=== PATIENT | female | born 1945 | race Caucasian/White ===

== ENCOUNTER 2021-02-01 01:59 | Day surgery (SDC) | payer MEDICARE, BC, SELFPAY ==
[2021-01-16 14:05] VITALS: BMI 23.8
[2021-02-01 08:19] VITALS: BP 129/58; PULSE 89; RESP 20; TEMP 36.1; O2SAT 98; BMI 23.1
--- NOTE | 2021-02-01 08:25 | WPDANESEPPF ---
Anes - Initial Pre Proc Eval Procedure: Operation Date: 02/01/21 09:15 Proposed Procedures p Esophagogastroduodenoscopy & Screening Colonoscopy - Aroldo Friedman MD Date/Time: 02/01/21 08:25 Surgeon: Aroldo Friedman MD Pre Op Diagnosis: hx of colon polyps, dysphagia Patient Data Age: 75 Gender: F Height: 1.57 m Weight: 57.2 kg Last Vital Signs Temp 36.1 C L 02/01/21 08:19 Pulse 89 02/01/21 08:19 Resp 20 02/01/21 08:19 BP 129/58 L 02/01/21 08:19 Pulse Ox 98 02/01/21 08:19 Allergies Allergy/AdvReac Type Severity Reaction Status Date / Time Sulfa (Sulfonamide Allergy Unknown unknown Verified 01/16/21 13:51 Antibiotics) 1 SULFA Allergy Unknown unknown Uncoded 01/16/21 13:51 Home Medications Medication Instructions Recorded Confirmed Type chlorpheniramine maleate 4 mg 4 mg PO Q4H PRN 03/09/20 01/16/21 History tablet levothyroxine 88 mcg capsule 88 mcg PO DAILY 03/09/20 01/16/21 History metformin 1,000 mg tablet 1,000 mg PO BID 03/09/20 01/16/21 History acetaminophen [Tylenol Arthritis] 650 mg PO Q24H 01/16/21 01/16/21 History Patient hx anesthesia problems: none Family hx anesthesia problems: none [facility] Past Medical History Medical History (Updated 02/01/21 @ 08:26 by Alexandro Hedrick MD) Chronic cough Diabetes Dysphagia History of colon polyps Hypercholesterolemia Hypothyroidism Osteoarthritis Social History Social History (Updated 01/12/21 @ 14:33 by Selma Rosales CMA) Smoking packs per day: 1 Smoking cigarettes per day: 20.0 Smoking status: Former smoker Tobacco type: cigarettes Alcohol intake: current Drinks per week: 1 Alcohol use details: Occasionally Substance use: never Substance use type: does not use Living arrangements: with family Spiritual care concerns: No Anes - Eval Final PreProcedure Day of Procedure 02/01/21 08:25 Patient weight: normal Heart: regular rate and rhythm Lungs: clear to auscultation and normal air movement Airway: Mallampati scale class II Neurological: alert and oriented Last oral intake: >/= 8 hours ASA classification: III Emergent: no Anesthetic plan: proceed Anesthesia type and monitoring: general GIVS Informed Consent: The patient's anesthetic plan and its attendant risks and benefits were discussed with the patient/family/POA. Questions were solicited and answers provided to the satisfaction of the patient/family/POA.
[2021-02-01 08:37] LABS: Glucose Point of Care 109 mg/dl (65-105)
[2021-02-01] MEDS: LACTATED RINGERS 1,000 ML 150 ML IV CONT (08:56)
--- NOTE | 2021-02-01 09:00 | WPDGICN ---
Assessment and Plan Assessment and plan (1) Dysphagia: Code(s): R13.10 - Dysphagia, unspecified Status: Acute Assessment and Plan: Patient has difficulty swallowing with more solid foods catching in the mid substernal portion the chest specifically in the throat. Plan is for EGD to assess for possible esophageal narrowing. Further recommendations will be given after endoscopy. (2) History of colon polyps: Code(s): Z86.010 - Personal history of colonic polyps Status: Acute Assessment and Plan: Patient has a prior history of colon polyps in 2014 by colonoscopy performed by Dr. Lee. Follow-up colonoscopy is advised at this time for surveillance purposes. GI Consult Note Consult date/time: 02/01/21 09:00 HPI: Bhumi Smith is a 75 year old female Presents for EGD. And colonoscopy. Patient complains of difficulty swallowing. She reports food catching in this back of her throat. This happens more often was solid foods compared to liquids. She states that is improved over recent weeks. She denies any weight loss or bleeding. She is occasionally woken at night with shortness of breath. Because of difficulty swallowing an EGD is advised to evaluate for esophageal narrowing. Patient also desires neoplasia screening colonoscopy. Patient reports a prior history of colon polyps in 2015. She reports that her current weight appetite bowel movement are normal. She denies abdominal pain. She has had no bleeding. Family history noncontributory. Review of Systems Review of Systems: All systems reviewed & are unremarkable except as noted in HPI and below PMFSH Past Medical History Medical History (Updated 02/01/21 @ 08:26 by Alexandro Hedrick MD) Chronic cough Diabetes Dysphagia History of colon polyps Hypercholesterolemia Hypothyroidism Osteoarthritis Social History Social History (Updated 01/12/21 @ 14:33 by Selma Rosales CMA) Smoking packs per day: 1 Smoking cigarettes per day: 20.0 Smoking status: Former smoker Tobacco type: cigarettes Alcohol intake: current Drinks per week: 1 Alcohol use details: Occasionally Substance use: never Substance use type: does not use Living arrangements: with family Spiritual care concerns: No Meds Home Medications and Allergies Home Medications Medication Instructions Recorded Confirmed Type chlorpheniramine maleate 4 mg 4 mg PO Q4H PRN 03/09/20 01/16/21 History tablet levothyroxine 88 mcg capsule 88 mcg PO DAILY 03/09/20 01/16/21 History metformin 1,000 mg tablet 1,000 mg PO BID 03/09/20 01/16/21 History acetaminophen [Tylenol Arthritis] 650 mg PO Q24H 01/16/21 01/16/21 History Allergies Allergy/AdvReac Type Severity Reaction Status Date / Time Sulfa (Sulfonamide Allergy Unknown unknown Verified 01/16/21 13:51 Antibiotics) 1 SULFA Allergy Unknown unknown Uncoded 01/16/21 13:51 Vital Signs Vital Signs - 24 hr 02/01/21 08:19 Temperature 96.9 F L Pulse Rate 89 Respiratory Rate 20 Blood Pressure 129/58 L Pulse Oximetry 98 Exam Narrative: Exam Narrative: Physical exam reveals patient to be alert. Vital signs stable. HEENT exam is unremarkable. Patient is anicteric. Lungs are clear to auscultation and percussion. Heart is without murmur or extra sounds. Abdominal exam bowel sounds are present soft nontender with no organomegaly. Digital external rectal exam is normal.
[2021-02-01 09:47] VITALS: BP 111/45; PULSE 81; RESP 15; O2SAT 99
[2021-02-01 09:57] VITALS: BP 104/53; PULSE 80; RESP 16; O2SAT 96
[2021-02-01 10:07] VITALS: BP 134/58; PULSE 78; RESP 18; O2SAT 100
== END 2021-02-01 10:24 | disposition home or self-care (01) ==
PROVIDERS: PCP Family Medicine; Visit Provider Internal Medicine Gastroenterology
PROC: 0DJ08ZZ Inspection of Upper Intestinal Tract, Via Natural or Artificial Opening Endoscopic (ICD-10-PCS; CPT 43235; principal; 2021-02-01 09:15)
DX: Z12.11 Encounter for screening for malignant neoplasm of colon (principal); K63.5 Polyp of colon; K64.8 Other hemorrhoids; K57.30 Diverticulosis of large intestine without perforation or abscess without bleeding; R13.10 Dysphagia, unspecified; E11.9 Type 2 diabetes mellitus without complications; E78.00 Pure hypercholesterolemia, unspecified; E03.9 Hypothyroidism, unspecified; M19.90 Unspecified osteoarthritis, unspecified site; Z79.84 Long term (current) use of oral hypoglycemic drugs; Z87.891 Personal history of nicotine dependence
CPT/HCPCS: 45385; 43450; 82948; 88305; J2001; J2704; J7120

== ENCOUNTER 2021-05-26 14:36 | Outpatient (CLI) | payer MEDICARE, BC, SELFPAY ==
[2021-05-26 14:56] LABS: Basophils Percent Auto 0.3 % (0.2-1.2); Eosinophils Absolute Auto 0.1 K/mm3 (0-0.3); Hematocrit 44.3 % (37.0-47.0); Immature Granulocyte Absolute 0.02 K/mm3 (0.00-0.031); Immature Granulocyte Percent A 0.3 % (0-0.5); Lymphocytes Absolute Auto 1.68 K/mm3 (0.9-3.2); Lymphocytes Percent Auto 25.2 % (18.3-44.2); Mean Corpuscular HGB Conc 31.6 g/dl (32-36); Mean Corpuscular Volume 101.1 fl (80-100); Mean Platelet Volume 9.3 fl (7.4-10.4); Monocytes Absolute Auto 0.6 K/mm3 (0.1-0.6); Monocytes Percent Auto 9.4 % (2.6-8.5); Neutrophils Absolute Auto 4.3 K/mm3 (1.3-6.7); Neutrophils Percent Auto 63.8 % (45.5-73.1); Platelet Count Result 272 k/mm3 (150-375); Red Blood Count 4.38 M/mm3 (4.2-5.4); Red Cell Distribution Width 13.2 % (11.5-14.5); White Blood Count 6.7 K/mm3 (4.5-10.0)
[2021-05-26 15:09] LABS: Alanine Aminotransferase 21 U/L (4-35); Albumin Level 4.9 g/dL (3.5-5.1); Alkaline Phosphatase 80 U/L (38-126); Anion Gap 17 mmol/L (8-16); Aspartate Amino Transferase 27 U/L (14-36); Bilirubin,Total 0.3 mg/dL (0.2-1.3); Blood Urea Nitrogen 17 mg/dL (7-17); Calcium 9.8 mg/dL (8.4-10.2); Carbon Dioxide 21 mmol/L (22-30); Chloride 103 mmol/L (98-107); Cholesterol 192 mg/dL (0-200); Estimated Glomerular Filt Rate > 60; Glucose 116 mg/dL (65-110); HDL Direct 103 mg/dL; Potassium 4.5 mmol/L (3.4-5.0); Sodium 141 mmol/L (137-145); Triglycerides 146 mg/dL (<150)
[2021-05-26 15:21] LABS: LDL Cholesterol Direct 71 mg/dL
[2021-05-26 15:31] LABS: Free T4 Free Thyroxine 1.98 ng/mL (0.78-2.19)
[2021-05-26 15:42] LABS: Thyroid Stimulating Hormone 0.044 uIU/mL (0.465-4.680); Total Triiodothyronine (T3) 1.58 NG/ML (0.97-1.69)
== END 2021-05-26 14:37 | disposition home or self-care (01) ==
LOC: ANHLAB 14:40
PROVIDERS: PCP Family Medicine; Visit Provider Family Medicine
DX: I10 Essential (primary) hypertension (principal); E03.9 Hypothyroidism, unspecified; E78.2 Mixed hyperlipidemia; E11.9 Type 2 diabetes mellitus without complications
CPT/HCPCS: 36415; 80053; 80061; 83036; 84439; 84443; 84480; 85025

== ENCOUNTER 2021-10-28 09:04 | Outpatient (CLI) | payer MEDICARE, BC, SELFPAY ==
[2021-10-28 10:08] LABS: Basophils Percent Auto 0.4 % (0.2-1.2); Eosinophils Absolute Auto 0.1 K/mm3 (0-0.3); Eosinophils Percent Auto 1.2 % (0-4.4); Hematocrit 38.9 % (37.0-47.0); Hemoglobin 12.7 g/dL (12.0-15.0); Immature Granulocyte Absolute 0.01 K/mm3 (0.00-0.031); Immature Granulocyte Percent A 0.2 % (0-0.5); Lymphocytes Absolute Auto 1.41 K/mm3 (0.9-3.2); Lymphocytes Percent Auto 27.6 % (18.3-44.2); Mean Corpuscular HGB Conc 32.6 g/dl (32-36); Mean Corpuscular Hemoglobin 32.2 pg (26-34); Mean Corpuscular Volume 98.7 fl (80-100); Mean Platelet Volume 9.7 fl (7.4-10.4); Monocytes Absolute Auto 0.6 K/mm3 (0.1-0.6); Neutrophils Percent Auto 58.6 % (45.5-73.1); Platelet Count Result 261 k/mm3 (150-375); Red Blood Count 3.94 M/mm3 (4.2-5.4); Red Cell Distribution Width 13.3 % (11.5-14.5); White Blood Count 5.1 K/mm3 (4.5-10.0)
[2021-10-28 10:22] LABS: Alanine Aminotransferase 19 U/L (4-35); Albumin Level 4.6 g/dL (3.5-5.1); Alkaline Phosphatase 63 U/L (38-126); Anion Gap 8 mmol/L (8-16); Aspartate Amino Transferase 29 U/L (14-36); Bilirubin,Total 0.4 mg/dL (0.2-1.3); Blood Urea Nitrogen 12 mg/dL (7-17); Calcium 8.7 mg/dL (8.4-10.2); Carbon Dioxide 22 mmol/L (22-30); Chloride 103 mmol/L (98-107); Cholesterol 188 mg/dL (0-200); Estimated Glomerular Filt Rate > 60; Glucose 111 mg/dL (65-110); HDL Direct 81 mg/dL; Potassium 4.3 mmol/L (3.4-5.0); Sodium 133 mmol/L (137-145); Triglycerides 77 mg/dL (<150)
[2021-10-28 10:34] LABS: LDL Cholesterol Direct 60 mg/dL
[2021-10-28 10:52] LABS: Free T4 Free Thyroxine 1.18 ng/mL (0.78-2.19)
[2021-10-28 12:19] LABS: Creatinine Urine 60.9 mg/dL
[2021-10-28 12:30] LABS: MALB Creatinine Ratio < 9.9 mg/g (0-30); Microalbumin Urine Random < 6.0 mg/L (0-16.7)
[2021-10-28 12:33] LABS: Hemoglobin A1C 5.9 % (<5.7)
== END 2021-10-28 09:05 | disposition home or self-care (01) ==
PROVIDERS: PCP Family Medicine; Visit Provider Family Medicine
DX: E11.9 Type 2 diabetes mellitus without complications (principal); I10 Essential (primary) hypertension; E78.2 Mixed hyperlipidemia; E03.9 Hypothyroidism, unspecified
CPT/HCPCS: 36415; 80053; 80061; 82043; 83036; 84439; 85025

== ENCOUNTER 2021-11-10 14:26 | Inpatient (IN) | payer MEDICARE, BC, SELFPAY ==
[2021-11-10] VITALS (12 sets, daily range): BP systolic 133–153; BP diastolic 55–74; PULSE 71–88; RESP 18–30; TEMP 36.2–38.4; O2SAT 91–98; BMI 23.0; BMI 24.3
--- NOTE | ~2021-11-10 | CT_ITS ---
EXAMINATION: CT brain wo con DATE: 11/10/2021 15:45 INDICATION: Generalized weakness and headache TECHNIQUE: Computed tomography (CT) of the head was performed without intravenous contrast. Sagittal and coronal reconstructions were performed. The mA was adjusted according to patient size. Iterative reconstruction technique was employed. The dose-length product was 605.33 mGy-cm. COMPARISON: None FINDINGS: Small old lacunar infarct at the left lentiform nucleus. No acute intracranial hemorrhage, acute infa rction or abnormal extra axial fluid collection. There is mild scattered white matter hypoattenuation consistent with chronic small vessel ischemic disease. Symmetric prominence of the sulci consistent with mild age-appropriate diffuse cerebral volume loss. Ventricles are normal and symmetric. No mass/ mass effect. Changes of bilateral intraocular lens replacement. The orbits, paranasal sinuses and mas toid air cells are normal. IMPRESSION: 1. No acute intracranial process. 2. Small old lacunar infarct at the left lentiform nucleus. 3. Age-related changes including mild diffuse volume loss and mild scattered white matter hypoattenua tion consistent with chronic small vessel ischemic disease. Reviewed, dictated and finalized at location A. IMPRESSION: 1. No acute intracranial process. 2. Small old lacunar infarct at the left lentiform nucleus. 3. Age-related changes including mild diffuse volume loss and mild scattered wh ite matter hypoattenuation consistent with chronic small vessel ischemic diseas e.
--- NOTE | ~2021-11-10 | XR_ITS ---
EXAMINATION: XR chest 1V portable INDICATION: Fever TECHNIQUE: Portable AP chest at 1939 hours COMPARISON: None available FINDINGS: There is mild atelectasis of the lung bases. No focal airspace opacities are identified. Th ere is no pleural effusion or pneumothorax. The cardiomediastinal silhouette is normal. IMPRESSION: 1. Mild atelectasis of the lung bases. Reviewed, dictated and finalized at location F.
--- NOTE | ~2021-11-10 | CT_ITS ---
EXAMINATION: CT abdomen pelvis w con INDICATION: Abdominal pain and fever TECHNIQUE: Computed tomographic images of the abdomen and pelvis were obtained after the administrati on of 100 cc of Omnipaque 350 intravenous contrast. The dose-length product (DLP) was 480.70 mGy-cm. Automated exposure control and iterative reconstruction technique were employed. COMPARISON: None available FINDINGS: Minimal dependent atelectasis is present in the lung bases. The heart size is normal. The l iver, spleen, pancreas, and adrenal glands are normal. A stone is present in the nondistended gallbla dder. There are diverticula of the third portion of the duodenum. The kidneys are unremarkable. There is calcified atherosclerosis of the aorta and many of the other arteries. No pathologically enlarged abdominal or pelvic lymph nodes are identified. Colonic diverticulosis is present without evidence o f diverticulitis. There is no free intraperitoneal gas or evidence of bowel obstruction. There is a s mall amount of intraluminal gas in the nondependent portion of the urinary bladder. There is mild lum bar spondylosis. A neurostimulator device is implanted in the gluteal subcutaneous tissues on the rig ht. Its lead enters the left pelvis. IMPRESSION: 1. No CT correlate for the patient's symptoms. 2. Tiny foci of intraluminal gas in the urinary bladder which could reflect recent catheterization. I n the absence of such history, consider urinary tract infection. 3. Cholelithiasis without evidence of cholecystitis. 4. Diverticulosis without evidence of diverticulitis. Reviewed, dictated and finalized at location F. IMPRESSION: 1. No CT correlate for the patient's symptoms. 2. Tiny foci of intraluminal gas in the urinary bladder which could reflect rec ent catheterization. In the absence of such history, consider urinary tract inf ection. 3. Cholelithiasis without evidence of cholecystitis. 4. Diverticulosis without evidence of diverticulitis.
--- NOTE | 2021-11-10 14:34 | ED.GENADULT ---
HPI - General Adult General Chief complaint: Weakness Stated complaint: weakness x 4-5 hours Time Seen by Provider: 11/10/21 14:28 Source: patient, EMS and RN notes reviewed Mode of arrival: ambulatory Limitations: no limitations History of Present Illness HPI narrative: 76-year-old female presenting to the emergency department for evaluation of increased generalized weakness. Patient is normally relatively active and walks approximately 1 mile a day. Family states over the last 5 hours she has had a worsening generalized weakness and was unable to walk today. Upon arrival to the emerge department patient does appear very tired. Patient does complain of some lower abdominal pain. Patient was febrile upon arrival. Patient is currently on Macrobid since the . Related Data Home Medications Medication Instructions Recorded Confirmed acetaminophen [Tylenol Arthritis] 650 mg PO Q24H 01/16/21 10/26/21 Allergies Allergy/AdvReac Type Severity Reaction Status Date / Time Sulfa (Sulfonamide Allergy Mild unknown Verified 11/10/21 14:34 Antibiotics) 1 SULFA Allergy Mild unknown Uncoded 11/10/21 14:34 Review of Systems Review of Systems: CONSTITUTIONAL: Increased generalized weakness EYES: Denies visual changes, redness, or discharge. ENT: Denies rhinorrhea, congestion, sore throat, or otalgia. CARDIOVASCULAR: Denies chest pain, palpitations, or edema. RESPIRATORY: Denies cough or dyspnea. GASTROINTESTINAL: See HPI GENITOURINARY: Denies dysuria or hematuria. SKIN: Denies rash or itching. MUSCULOSKELETAL: Denies back pain, joint pain, or myalgia. NEUROLOGIC: See HPI All systems reviewed & are unremarkable except as noted in HPI and below PMFSH Past Medical History Medical History Chronic cough Diabetes Dysphagia History of colon polyps Hypercholesterolemia Hypothyroidism Osteoarthritis Presence of neurostimulator TIA (transient ischemic attack) Urinary bladder incontinence Surgical History Surgical History H/O colonoscopy with polypectomy 02/08- repeat in 2025 History of esophagogastroduodenoscopy (EGD) 01/2021 Family History Family History Mother Breast cancer Heart disease Diabetes mellitus Social History Social History (Updated 04/07/22 @ 12:55 by Jeanie Bocanegra Social History: Smoking packs per day: 1 Smoking cigarettes per day: 20.0 Smoking status: Former smoker Tobacco type: cigarettes Second hand tobacco smoke exposure: No Smoking end date: 07/22/07 Alcohol intake: current Alcohol use details: Occasionally Substance use: never Substance use type: does not use Gender identity (if verbalized by the patient): Female Sexual Orientation (if Verbalized by the Patient): Straight or Heterosexual Spiritual care concerns: No Exam Narrative: APPEARANCE: Ill-appearing. HEAD: normocephalic, atraumatic. EYES: PERRLA/EOMI, conjunctivae clear. NOSE: Normal no drainage EARS:TMS clear with good light reflex. THROAT: Pharynx clear, no exudate. NECK: Supple. No adenopathy, no masses. RESPIRATORY: Airway patent, respirations nonlabored. Clear to auscultation bilaterally, no rales, rhonchi, wheezing. CARDIOVASCULAR: Regular rate and rhythm without murmurs rubs or gallops. ABDOMINAL: Soft, nontender, nondistended, normal bowel sounds MUSCULOSKELETAL: Moves all extremities. Strength/ROM intact, No edema, No calf tenderness. NEURO: Alert. Cranial nerves II through XII intact. Grossly intact. No focal deficit. No ataxia. No discoordination. SKIN: Warm, dry. Normal Color PSYCHIATRIC: Normal affect/mood. Course Course Emergency Course: No evidence of urinary tract infection. CT head and CT abdomen pelvis were negative. Patient did feel improved with antipyretics but was still very unstable on her gait. Delon
[2021-11-10 14:57] LABS: Basophils Percent Auto 0.1 % (0.2-1.2); Eosinophils Absolute Auto 0.1 K/mm3 (0-0.3); Eosinophils Percent Auto 1.2 % (0-4.4); Hemoglobin 12.7 g/dL (12.0-15.0); Immature Granulocyte Absolute 0.07 K/mm3 (0.00-0.031); Immature Granulocyte Percent A 0.8 % (0-0.5); Lymphocytes Absolute Auto 0.43 K/mm3 (0.9-3.2); Lymphocytes Percent Auto 4.8 % (18.3-44.2); Mean Corpuscular HGB Conc 31.8 g/dl (32-36); Mean Corpuscular Hemoglobin 31.7 pg (26-34); Mean Corpuscular Volume 99.8 fl (80-100); Mean Platelet Volume 9.4 fl (7.4-10.4); Monocytes Absolute Auto 0.5 K/mm3 (0.1-0.6); Monocytes Percent Auto 5.6 % (2.6-8.5); Neutrophils Absolute Auto 7.8 K/mm3 (1.3-6.7); Neutrophils Percent Auto 87.5 % (45.5-73.1); Platelet Count Result 241 k/mm3 (150-375); Red Blood Count 4.01 M/mm3 (4.2-5.4); Red Cell Distribution Width 13.6 % (11.5-14.5); White Blood Count 8.9 K/mm3 (4.5-10.0)
[2021-11-10 15:06] LABS: Lactic Acid Reflex 1.4 mmol/L (0.7-2.1)
[2021-11-10 15:08] LABS: Alanine Aminotransferase 25 U/L (4-35); Albumin Level 4.5 g/dL (3.5-5.1); Alkaline Phosphatase 65 U/L (38-126); Anion Gap 9 mmol/L (8-16); Aspartate Amino Transferase 39 U/L (14-36); Bilirubin,Total 0.3 mg/dL (0.2-1.3); Blood Urea Nitrogen 9 mg/dL (7-17); Calcium 8.6 mg/dL (8.4-10.2); Carbon Dioxide 23 mmol/L (22-30); Chloride 99 mmol/L (98-107); Estimated CRCL calculation 47 ml/min; Estimated Glomerular Filt Rate > 60; Glucose 160 mg/dL (65-110); Sodium 131 mmol/L (137-145)
[2021-11-10 15:31] LABS: Influenza A QL RT-PCR Negative (Negative); Influenza B QL RT-PCR Negative (Negative); SARS-CoV-2 RNA PCR Negative
[2021-11-10 16:18] LABS: Add Urine Microscopic? YES; Appearance Urine Clear (Clear); Bilirubin Urine Negative (Negative); Blood Urine 1+ (Negative); Color Urine Yellow (Yellow); Glucose Urine UA Negative (Negative); Ketones Urine Trace mg/dL (Negative); Leukocyte Esterase Ur Negative LEU/UL (Negative); Mucus Urine Rare /lpf; Nitrate Urine Negative (Negative); Protein Urine Negative (Negative); RBC Urine 0-2 /hpf (0-2); Specific Grav Ur 1.024 (1.001-1.035); Urobilinogen Urine Negative mg/dL (<2.0); WBC Urine 0-3 /hpf
--- NOTE | 2021-11-10 19:39 | PM.IMHP ---
H&P: HPI History of Present Illness Date/Time: 11/10/21 19:39 Chief Complaint: 76 years old female with past medical history of diabetes hypothyroidism presented to the hospital with difficulty with walking associated with generalized weakness normally patient is able to walk 1 mill a day patient also complain patient also has fever associated with intermittent confusion nor neck pain patient was recently treated for UTI with Macrobid CT scan of the abdomen concern for probable cystitis CT scan of the head negative for acute finding Review of Systems Review of Systems: All systems reviewed & are unremarkable except as noted in HPI and below PMFSH Past Medical History Medical History Chronic cough Diabetes Dysphagia History of colon polyps Hypercholesterolemia Hypothyroidism Osteoarthritis Presence of neurostimulator TIA (transient ischemic attack) Urinary bladder incontinence Surgical History Surgical History H/O colonoscopy with polypectomy 02/08- repeat in 2025 History of esophagogastroduodenoscopy (EGD) 01/2021 Family History Family History Mother Breast cancer Heart disease Diabetes mellitus Social History Social History Social History: Smoking packs per day: 1 Smoking cigarettes per day: 20.0 Smoking status: Former smoker Tobacco type: cigarettes Second hand tobacco smoke exposure: No Smoking end date: 07/22/07 Alcohol intake: current Alcohol use details: Occasionally Substance use: never Substance use type: does not use Gender identity (if verbalized by the patient): Female Sexual Orientation (if Verbalized by the Patient): Straight or Heterosexual Spiritual care concerns: No Meds Home Medications and Allergies Home Medications Medication Instructions Recorded Confirmed Type acetaminophen [Tylenol Arthritis] 650 mg PO Q24H 01/16/21 10/26/21 History levothyroxine 50 mcg tablet See Rx Instructions .ROUTE 10/09/21 10/26/21 Rx .COMPLEX #100 tablet atorvastatin 10 mg tablet 10 mg PO DAILY #90 tablet 10/26/21 10/26/21 Rx escitalopram oxalate 5 mg tablet 5 mg PO DAILY #30 tablet 10/26/21 10/26/21 Rx metformin 1,000 mg tablet 1,000 mg PO BID #180 tablet 10/26/21 10/26/21 Rx Allergies Allergy/AdvReac Type Severity Reaction Status Date / Time Sulfa (Sulfonamide Allergy Mild unknown Verified 11/10/21 14:34 Antibiotics) 1 SULFA Allergy Mild unknown Uncoded 11/10/21 14:34 Vital Signs Vital Signs - 24 hr 11/10/21 14:22 11/10/21 14:32 11/10/21 14:33 Temperature 101.2 F H Pulse Rate 86 87 88 Respiratory Rate 30 H 30 H Blood Pressure 153/70 H 153/70 H Pulse Oximetry 96 96 11/10/21 14:36 11/10/21 14:57 11/10/21 15:01 Temperature Pulse Rate 86 87 Respiratory Rate 28 H 29 H Blood Pressure 134/62 134/63 Pulse Oximetry 96 95 94 11/10/21 15:12 11/10/21 15:55 11/10/21 16:02 Temperature 99.3 F 99.3 F Pulse Rate 84 79 Respiratory Rate 18 21 H Blood Pressure 146/55 H 151/61 H Pulse Oximetry 96 93 11/10/21 18:29 Temperature Pulse Rate 71 Respiratory Rate 18 Blood Pressure 133/74 Pulse Oximetry 91 Exam Const: General: no acute distress HENMT: Mouth: Yes dry mucous membranes Eyes: Sclera: sclerae normal Neck: Neck: no JVD Resp: Auscultation: clear to auscultation bilaterally Cardio: Rate: regular rate Rhythm: regular rhythm GI: Inspection: non-distended GI Palp: Yes Soft to palpation, No Tenderness to palpation present (GI) and No Guarding due to palpation present (GI) Skin: General skin exam: normal color Neuro: General: gait normal and deep tendon reflexes 2+ bilaterally Cognition (Neuro): normal cognition and abnormal cognition Speech: normal speech Ivette
[2021-11-10 21:32] LABS: Magnesium 1.7 mg/dL (1.6-2.3); Uric Acid 3.7 mg/dL (2.5-7.5)
[2021-11-10 21:35] LABS: CRP 4.2 mg/dL (<1.0)
[2021-11-10 21:48] LABS: Creatine Kinase 657 U/L (30-135)
[2021-11-10 21:55] LABS: Vitamin D 25 Hydroxy 24.6 ng/mL
[2021-11-10 21:57] LABS: Procalcitonin 0.6 ng/mL
[2021-11-10] MEDS: ACETAMINOPHEN 325 MG TABLET 650 MG PO (22:01)
[2021-11-10] MEDS: SODIUM CHLORIDE 0.9% IV 1,000 ML 100 ML IV CONT (22:04)
[2021-11-10] MEDS: DOXYCYCLINE 100 MG/NS 100 ML 100 MG/100 ML BAG IVPB (22:04)
--- NOTE | 2021-11-10 22:22 | ADMGEN ---
This patient, Bhumi Smith, was admitted to [facility] Surg Room 321-02. Patient/family oriented to hospital policies and general routines including ID bracelet, bed and alarms, visiting hours, pain management, procedures, bathroom and other care routines, personal items, smoking policy, room service/diet, and visiting hours. Information on how to activate the Rapid Response Team has been discussed. Patient/Family are encouraged to report perceived risks to care and to ask questions if they do not understand what they are told or what they should do.
[2021-11-10 22:39] LABS: Folic Acid 11.7 ng/mL (2.76->20)
[2021-11-10] MEDS: cefTRIAXone 2 GM in SODIUM CHLORIDE 0.9% IV 100 ML 200 ML IVPB (23:47)
[2021-11-11] VITALS (10 sets, daily range): BP systolic 129–140; BP diastolic 46–61; PULSE 86–96; RESP 18–19; TEMP 36.9–38.5; O2SAT 94–96
[2021-11-11] MEDS: LEVOTHYROXINE SODIUM 50 MCG TABLET BY MOUTH (06:23)
[2021-11-11] MEDS: ACETAMINOPHEN 325 MG TABLET 650 MG PO ×3 (06:24→21:00)
[2021-11-11 06:46] LABS: Basophils Percent Auto 0.2 % (0.2-1.2); Eosinophils Absolute Auto 0.2 K/mm3 (0-0.3); Eosinophils Percent Auto 2.6 % (0-4.4); Hematocrit 39.3 % (37.0-47.0); Hemoglobin 12.7 g/dL (12.0-15.0); Immature Granulocyte Absolute 0.05 K/mm3 (0.00-0.031); Immature Granulocyte Percent A 0.5 % (0-0.5); Lymphocytes Absolute Auto 0.71 K/mm3 (0.9-3.2); Lymphocytes Percent Auto 7.8 % (18.3-44.2); Mean Corpuscular HGB Conc 32.3 g/dl (32-36); Mean Corpuscular Hemoglobin 31.8 pg (26-34); Mean Corpuscular Volume 98.3 fl (80-100); Mean Platelet Volume 10.4 fl (7.4-10.4); Monocytes Absolute Auto 0.9 K/mm3 (0.1-0.6); Monocytes Percent Auto 9.8 % (2.6-8.5); Neutrophils Absolute Auto 7.2 K/mm3 (1.3-6.7); Neutrophils Percent Auto 79.1 % (45.5-73.1); Platelet Count Result 230 k/mm3 (150-375); Red Cell Distribution Width 13.7 % (11.5-14.5); White Blood Count 9.1 K/mm3 (4.5-10.0)
[2021-11-11 07:25] LABS: Glucose Point of Care 169 mg/dl (65-105)
[2021-11-11] MEDS: DOXYCYCLINE 100 MG/NS 100 ML 100 MG/100 ML BAG IVPB (08:04)
[2021-11-11] MEDS: ESCITALOPRAM OXALATE 5 MG TABLET PO (08:04)
[2021-11-11] MEDS: ENOXAPARIN 40 MG/0.4 ML SYRINGE SUB-Q (08:45)
[2021-11-11 11:11] LABS: Amphetamine Screen Urine Negative (Negative); Barbiturate Screen Urine Negative (Negative); Benzodiazepines Screen Urine Negative (Negative); Cannabinoid Screen Urine Negative (Negative); Cocaine Screen Urine Negative (Negative); Methadone Screen Urine Negative (Negative); Opiate Screen Urine Negative (Negative); Phencyclidine Screen Urine Negative (Negative)
--- NOTE | 2021-11-11 11:26 | PM.IMPN ---
Progress Note: A&P Assessment and Plan (1) Fever: Qualifiers: Fever type: unspecified Qualified Code(s): R50.9 - Fever, unspecified Code(s): R50.9 - Fever, unspecified Status: Acute Assessment and Plan: Probable viral illness CT scan shows concern for cystitis Follow-up blood culture Continue iv rocephin Dc doxocycline (2) Hypothyroidism: Code(s): E03.9 - Hypothyroidism, unspecified Status: Acute Assessment and Plan: Pt is on levothyroxine (3) Diabetes: Code(s): E11.9 - Type 2 diabetes mellitus without complications Status: Acute Assessment and Plan: Continue- insulin sliding scale (4) Difficulty walking: Code(s): R26.2 - Difficulty in walking, not elsewhere classified Status: Acute Assessment and Plan: Neurology consult CT scan of the head was negative PT OT evaluation Pt will benefit from MRI of the brain for weakness Subjective Date/time seen: 11/11/21 11:26 Interval history: 76 years old female with past medical history of diabetes hypothyroidism presented to the hospital with difficulty with walking associated with generalized weakness normally patient is able to walk 1 mill a day patient also complain patient also has fever associated with intermittent confusion nor neck pain patient was recently treated for UTI Pt states she has been feeling very tired, usually does not come to hospital. Pt has history of type 2 DM. States she has severe headache and arm pains and feels weak to walk. ? viral infection ? UTI Review of Systems Review of Systems: All systems reviewed & are unremarkable except as noted in HPI and below Exam Const: General: no acute distress Resp: Auscultation: clear to auscultation bilaterally Cardio: Rate: regular rate Rhythm: regular rhythm GI: Inspection: non-distended Skin: General skin exam: normal color Neuro: General: gait normal and deep tendon reflexes 2+ bilaterally Cognition (Neuro): normal cognition and abnormal cognition Speech: normal speech Motor exam (neuro): 5/5 motor strength present throughout and Normal motor muscle tone present throughout Sensory Exam: normal sensation Extrem: General: normal to inspection Right upper extremity: normal to inspection and no joint enlargement Left upper extremity: normal to inspection and no joint enlargement Right lower extremity: normal to inspection and no joint enlargement Left lower extremity: normal to inspection and no joint enlargement Psych: Mental Status: mental status grossly normal Objective Data Vital Signs Vital Signs: Vital Signs - 24 hr 11/10/21 14:22 11/10/21 14:32 11/10/21 14:33 Temperature 38.4 C H Pulse Rate 86 87 88 Respiratory Rate 30 H 30 H Blood Pressure 153/70 H 153/70 H Pulse Oximetry 96 96 11/10/21 14:36 11/10/21 14:57 11/10/21 15:01 Temperature Pulse Rate 86 87 Respiratory Rate 28 H 29 H Blood Pressure 134/62 134/63 Pulse Oximetry 96 95 94 11/10/21 15:12 11/10/21 15:55 11/10/21 16:02 Temperature 37.4 C 37.4 C Pulse Rate 84 79 Respiratory Rate 18 21 H Blood Pressure 146/55 H 151/61 H Pulse Oximetry 96 93 11/10/21 18:29 11/10/21 20:00 11/10/21 21:07 Temperature 36.2 C L 36.2 C L Pulse Rate 71 77 77 Respiratory Rate 18 18 18 Blood Pressure 133/74 135/55 L 135/55 L Pulse Oximetry 91 98 98 11/11/21 00:00 11/11/21 04:00 11/11/21 06:00 Temperature 38.1 C H Pulse Rate 88 88 91 Respiratory Rate 18 Blood Pressure 130/61 Pulse Oximetry 95 11/11/21 06:24 11/11/21 08:00 Temperature 38.1 C H Pulse Rate 93 Respiratory Rate Blood Pressure Pulse Oximetry Intake/Output Intake/Output: Intake & Output 11/08/21 11/09/21 11/10/21 11/11/21 23:59 23:59 23:59 23:59 Intake Total 200 456 Balance 200 456 Meds/Results Medications: Active Medications Generic Name Dose Route Start Last Admin Trade Name Freq PRN Reason Stop
[2021-11-11 11:31] LABS: Glucose Point of Care 118 mg/dl (65-105)
--- NOTE | 2021-11-11 12:23 | WPDNEURCNPN ---
Consult date: 11/11/21 HPI: Bhumi Smith is a 76 year old female 76 years old right-handed female has been admitted to [facility] through the emergency room where she presented with the complaints of weakness of several hours duration, patient is reportedly relatively active approximately 1mi walking per day, but over the last 5 hours she became weak generally and was unable to walk on initial arrival in the emergency room she appeared very tired and complained of some abdominal pain additionally she was febrile she has been taking only Tylenol 650 mg Q 24 hours. Reportedly she is allergic to sulfa, she has ongoing history of 1. Diabetes mellitus 2. Hypercholesterolemia 3. Hypothyroidism 4. Osteoarthritis 5. TIA 6. Bladder dysfunction and 7. Neuro stimulator in situ. She is a former smoker by history stopped smoking in July of 2007 and current alcohol occasionally intake initial exam otherwise was nonfocal and CT head and abdomen and pelvis were negative also routine lab was normal except sodium 131 Review of Systems Review of Systems: All systems reviewed & are unremarkable except as noted in HPI and below PMFSH Past Medical History Medical History Chronic cough Diabetes Dysphagia History of colon polyps Hypercholesterolemia Hypothyroidism Osteoarthritis Presence of neurostimulator TIA (transient ischemic attack) Urinary bladder incontinence Surgical History Surgical History H/O colonoscopy with polypectomy 02/08- repeat in 2025 History of esophagogastroduodenoscopy (EGD) 01/2021 Family History Family History Mother Breast cancer Heart disease Diabetes mellitus Social History Social History Social History: Smoking packs per day: 2 Smoking cigarettes per day: 40.0 Years smoked: 40 Smoking pack-years: 80.00 Smoking status: Former smoker Tobacco type: cigarettes Second hand tobacco smoke exposure: No Smoking end date: 07/22/07 Alcohol intake: former Alcohol use details: Occasionally Substance use: never Substance use type: marijuana Gender identity (if verbalized by the patient): Female Sexual Orientation (if Verbalized by the Patient): Straight or Heterosexual Spiritual care concerns: No Meds Home Medications and Allergies Home Medications Medication Instructions Recorded Confirmed Type acetaminophen [Tylenol Arthritis] 650 mg PO Q24H 01/16/21 11/11/21 History levothyroxine 50 mcg tablet See Rx Instructions .ROUTE 10/09/21 11/11/21 Rx .COMPLEX #100 tablet atorvastatin 10 mg tablet 10 mg PO DAILY #90 tablet 10/26/21 11/11/21 Rx escitalopram oxalate 5 mg tablet 5 mg PO DAILY #30 tablet 10/26/21 11/11/21 Rx metformin 1,000 mg tablet 1,000 mg PO BID #180 tablet 10/26/21 11/11/21 Rx Allergies Allergy/AdvReac Type Severity Reaction Status Date / Time Sulfa (Sulfonamide Allergy Mild unknown Verified 11/10/21 14:34 Antibiotics) 1 SULFA Allergy Mild unknown Uncoded 11/10/21 14:34 Vital Signs Vital Signs - 24 hr 11/10/21 14:22 11/10/21 14:32 11/10/21 14:33 Temperature 38.4 C H Pulse Rate 86 87 88 Respiratory Rate 30 H 30 H Blood Pressure 153/70 H 153/70 H Pulse Oximetry 96 96 11/10/21 14:36 11/10/21 14:57 11/10/21 15:01 Temperature Pulse Rate 86 87 Respiratory Rate 28 H 29 H Blood Pressure 134/62 134/63 Pulse Oximetry 96 95 94 11/10/21 15:12 11/10/21 15:55 11/10/21 16:02 Temperature 37.4 C 37.4 C Pulse Rate 84 79 Respiratory Rate 18 21 H Blood Pressure 146/55 H 151/61 H Pulse Oximetry 96 93 11/10/21 18:29 11/10/21 20:00 11/10/21 21:07 Temperature 36.2 C L 36.2 C L Pulse Rate 71 77 77 Respiratory Rate 18 18 18 Blood Pressure 133/74 135/55 L 135/55 L Pulse Oximetry 91 98 98 11/11/21 00:00 11/11
[2021-11-11 12:55] LABS: Anion Gap 11 mmol/L (8-16); Blood Urea Nitrogen 10 mg/dL (7-17); Carbon Dioxide 19 mmol/L (22-30); Chloride 103 mmol/L (98-107); Estimated CRCL calculation 44 ml/min; Estimated Glomerular Filt Rate > 60; Potassium 4.2 mmol/L (3.4-5.0); Sodium 133 mmol/L (137-145)
[2021-11-11 12:56] LABS: Alanine Aminotransferase 25 U/L (4-35); Albumin Level 4.3 g/dL (3.5-5.1); Alkaline Phosphatase 56 U/L (38-126); Aspartate Amino Transferase 49 U/L (14-36); Bilirubin,Total 0.5 mg/dL (0.2-1.3); Calcium 8.3 mg/dL (8.4-10.2); Glucose 156 mg/dL (65-110); Total Protein 7.4 g/dL (6.3-8.2)
[2021-11-11] MEDS: SODIUM CHLORIDE 0.9% IV 1,000 ML 100 ML IV CONT (13:33)
[2021-11-11 16:13] LABS: Glucose Point of Care 181 mg/dl (65-105)
[2021-11-11] MEDS: cefTRIAXone 2 GM in SODIUM CHLORIDE 0.9% IV 100 ML 200 ML IVPB (21:00)
[2021-11-12] MEDS: SODIUM CHLORIDE 0.9% IV 1,000 ML 100 ML IV CONT (00:59)
[2021-11-12] MEDS: ACETAMINOPHEN 325 MG TABLET 650 MG PO ×2 (01:00→06:27)
[2021-11-12 06:00] VITALS: BP 138/56; PULSE 82; RESP 18; TEMP 36.9; O2SAT 93
[2021-11-12] MEDS: LEVOTHYROXINE SODIUM 50 MCG TABLET BY MOUTH (06:27)
[2021-11-12 07:19] LABS: Basophils Percent Auto 0.1 % (0.2-1.2); Eosinophils Absolute Auto 0.3 K/mm3 (0-0.3); Eosinophils Percent Auto 3.4 % (0-4.4); Hematocrit 33.7 % (37.0-47.0); Hemoglobin 10.7 g/dL (12.0-15.0); Immature Granulocyte Absolute 0.03 K/mm3 (0.00-0.031); Immature Granulocyte Percent A 0.4 % (0-0.5); Lymphocytes Absolute Auto 0.92 K/mm3 (0.9-3.2); Lymphocytes Percent Auto 11.5 % (18.3-44.2); Mean Corpuscular HGB Conc 31.8 g/dl (32-36); Mean Corpuscular Hemoglobin 31.4 pg (26-34); Mean Corpuscular Volume 98.8 fl (80-100); Mean Platelet Volume 9.8 fl (7.4-10.4); Monocytes Absolute Auto 0.9 K/mm3 (0.1-0.6); Monocytes Percent Auto 11.3 % (2.6-8.5); Neutrophils Absolute Auto 5.9 K/mm3 (1.3-6.7); Neutrophils Percent Auto 73.3 % (45.5-73.1); Platelet Count Result 191 k/mm3 (150-375); Red Blood Count 3.41 M/mm3 (4.2-5.4); Red Cell Distribution Width 13.8 % (11.5-14.5)
[2021-11-12 07:30] LABS: Glucose Point of Care 141 mg/dl (65-105)
[2021-11-12] MEDS: ENOXAPARIN 40 MG/0.4 ML SYRINGE SUB-Q (08:02)
[2021-11-12] MEDS: ESCITALOPRAM OXALATE 5 MG TABLET PO (08:02)
[2021-11-12 08:09] LABS: Alanine Aminotransferase 34 U/L (4-35); Albumin Level 3.5 g/dL (3.5-5.1); Alkaline Phosphatase 55 U/L (38-126); Anion Gap 8 mmol/L (8-16); Aspartate Amino Transferase 42 U/L (14-36); Bilirubin,Total 0.3 mg/dL (0.2-1.3); Blood Urea Nitrogen 8 mg/dL (7-17); Calcium 7.8 mg/dL (8.4-10.2); Carbon Dioxide 20 mmol/L (22-30); Chloride 106 mmol/L (98-107); Estimated CRCL calculation 51 ml/min; Estimated Glomerular Filt Rate > 60; Glucose 138 mg/dL (65-110); Potassium 3.5 mmol/L (3.4-5.0); Sodium 134 mmol/L (137-145)
--- NOTE | 2021-11-12 10:08 | PM.DS ---
DS: Admitting Diagnosis Discharge Date November 12, 2021 Admitting Diagnosis UTI, weakness DS: Discharge Diagnosis Discharge Diagnosis (1) Fever: Qualifiers: Fever type: unspecified Qualified Code(s): R50.9 - Fever, unspecified Code(s): R50.9 - Fever, unspecified Status: Acute Assessment and Plan: Possible cystitis. Omnicef on discharge. (2) Hypothyroidism: Code(s): E03.9 - Hypothyroidism, unspecified Status: Acute Assessment and Plan: Pt is on levothyroxine (3) Diabetes: Code(s): E11.9 - Type 2 diabetes mellitus without complications Status: Acute Assessment and Plan: Continue home meds and monitor. (4) Difficulty walking: Code(s): R26.2 - Difficulty in walking, not elsewhere classified Status: Acute Assessment and Plan: Workup unrevealing. I think most of this might have been related to a drug reaction from nitrofurantoin. She reports starting this approximately 10 days ago and about day 7 she noticed significant weakness and myalgia. This is a documented side effect. Much improved she work with physical therapy today is going to go to the store immediately and filler picker a wheeled walker otherwise therapy thought she would be fine being discharged to home. DS: Summary Hospital Course Hospital Course: See discharge plan and diagnoses Time Spent with Patient Time attestation: Total time spent providing and/or coordinating discharge services: Exam Const: General: no acute distress HENMT: Mouth: Yes dry mucous membranes Eyes: Sclera: sclerae normal Neck: Neck: no JVD Resp: Auscultation: clear to auscultation bilaterally Cardio: Rate: regular rate Rhythm: regular rhythm GI: Inspection: non-distended Skin: General skin exam: normal color Neuro: General: gait normal and deep tendon reflexes 2+ bilaterally Cognition (Neuro): normal cognition and abnormal cognition Speech: normal speech Motor exam (neuro): 5/5 motor strength present throughout and Normal motor muscle tone present throughout Sensory Exam: normal sensation Extrem: General: normal to inspection Right upper extremity: normal to inspection and no joint enlargement Left upper extremity: normal to inspection and no joint enlargement Right lower extremity: normal to inspection and no joint enlargement Left lower extremity: normal to inspection and no joint enlargement Psych: Mental Status: mental status grossly normal DS: Data Data Completed and Pending Labs on day of discharge: Labs from last 24 hours 11/12/21 11/12/21 11/12/21 07:47 07:26 06:52 WBC 8.0 RBC 3.41 L Hgb 10.7 L Hct 33.7 L MCV 98.8 MCH 31.4 MCHC 31.8 L RDW 13.8 Plt Count 191 MPV 9.8 Immature Gran % (Auto) 0.4 Neut % (Auto) 73.3 H Lymph % (Auto) 11.5 L Swift % (Auto) 11.3 H Eos % (Auto) 3.4 Baso % (Auto) 0.1 L Lymph # (Auto) 0.92 Swift # (Auto) 0.9 H Eos # (Auto) 0.3 Baso # (Auto) 0.0 Abs Immat Gran (auto) 0.03 Absolute Neuts (auto) 5.9 Absolute Nucleated RBC 0.0 Nucleated RBC % 0.0 Sodium 134 L Potassium 3.5 Chloride 106 Carbon Dioxide 20 L Anion Gap 8 BUN 8 Creatinine 0.60 L Estim Creat Clear Calc 51 Estimated GFR > 60 Glucose 138 H POC Capillary Glucose 141 H Calcium 7.8 L Total Bilirubin 0.3 AST 42 H ALT 34 Alkaline Phosphatase 55 Total Protein 6.0 L Albumin 3.5 Urine Opiates Screen Urine Methadone Screen Ur Barbiturates Screen Ur Phencyclidine Scrn Ur Amphetamine Screen U Benzodiazepines Scrn Urine Cocaine Screen U Cannabinoids Screen 11/11/21 11/11/21 11/11/21 16:07 11:29 11:24 WBC RBC Hgb Hct MCV MCH MCHC RDW Plt Count MPV Immature Gran % (Auto) Neut % (Auto) Lymph % (Auto) Swift % (Auto) Eos % (Auto) Baso % (Auto) Lymph # (Auto) Mon
== END 2021-11-12 11:05 | disposition home or self-care (01) | DRG 690 ==
LOC: ANHED 19:20 → ANH3MEDSUR 19:50
PROVIDERS: Internal Medicine; Admitting Provider Internal Medicine; Emergency Provider Emergency Medicine; PCP Family Medicine; Visit Provider Chiropractor
DX: N39.0 Urinary tract infection, site not specified (principal); E03.9 Hypothyroidism, unspecified; E11.9 Type 2 diabetes mellitus without complications; Z20.822 Contact with and (suspected) exposure to COVID-19; R26.2 Difficulty in walking, not elsewhere classified; Z87.891 Personal history of nicotine dependence; E78.00 Pure hypercholesterolemia, unspecified; Z86.73 Personal history of transient ischemic attack (TIA), and cerebral infarction without residual deficits; Z79.899 Other long term (current) drug therapy; Z96.82 Presence of neurostimulator; Z83.3 Family history of diabetes mellitus; Z82.49 Family history of ischemic heart disease and other diseases of the circulatory system; Z80.3 Family history of malignant neoplasm of breast; Z79.84 Long term (current) use of oral hypoglycemic drugs; N31.9 Neuromuscular dysfunction of bladder, unspecified
CPT/HCPCS: 36415; 51701; 70450; 71045; 74177; 80053; 80307; 81001; 82085; 82306; 82550; 82607; 82728; 82746; 82948; 83605; 83735; 84145; 84550; 85025; 86140; 87040; 87502; 96361; 96365; 96366; 96367; 96372; 96375; 97116; 97161; 97165; 97530; 97535; 99285; A9270; C9803; G0378; J0131; J0696; J1650; J7030; Q9967; U0003; U0005

== ENCOUNTER 2021-12-19 07:14 | Outpatient (CLI) | payer MEDICARE, BC, SELFPAY ==
[2021-12-19 08:09] LABS: Basophils Percent Auto 0.6 % (0.2-1.2); Eosinophils Absolute Auto 0.1 K/mm3 (0-0.3); Eosinophils Percent Auto 2.9 % (0-4.4); Hematocrit 41.4 % (37.0-47.0); Immature Granulocyte Absolute 0.01 K/mm3 (0.00-0.031); Immature Granulocyte Percent A 0.2 % (0-0.5); Lymphocytes Absolute Auto 1.37 K/mm3 (0.9-3.2); Lymphocytes Percent Auto 28.3 % (18.3-44.2); Mean Corpuscular HGB Conc 31.4 g/dl (32-36); Mean Corpuscular Hemoglobin 31.6 pg (26-34); Mean Corpuscular Volume 100.5 fl (80-100); Monocytes Absolute Auto 0.7 K/mm3 (0.1-0.6); Monocytes Percent Auto 13.6 % (2.6-8.5); Neutrophils Absolute Auto 2.6 K/mm3 (1.3-6.7); Neutrophils Percent Auto 54.4 % (45.5-73.1); Platelet Count Result 296 k/mm3 (150-375); Red Blood Count 4.12 M/mm3 (4.2-5.4); Red Cell Distribution Width 14.3 % (11.5-14.5); White Blood Count 4.8 K/mm3 (4.5-10.0)
[2021-12-19 09:18] LABS: Free T4 Free Thyroxine 1.19 ng/mL (0.78-2.19)
[2021-12-19 09:32] LABS: Alanine Aminotransferase 25 U/L (6-35); Albumin Level 4.6 g/dL (3.5-5.1); Alkaline Phosphatase 69 U/L (38-126); Anion Gap 6 mmol/L (8-16); Aspartate Amino Transferase 31 U/L (14-36); Bilirubin,Total 0.2 mg/dL (0.2-1.3); Blood Urea Nitrogen 15 mg/dL (7-17); Calcium 8.9 mg/dL (8.4-10.2); Carbon Dioxide 25 mmol/L (22-30); Chloride 107 mmol/L (98-107); Creatine Kinase 41 U/L (30-135); Estimated Glomerular Filt Rate > 60; Glucose 136 mg/dL (65-110); Potassium 4.6 mmol/L (3.4-5.0); Sodium 138 mmol/L (137-145)
[2021-12-19 09:47] LABS: Hemoglobin A1C 6.2 % (<5.7)
[2021-12-19 10:17] LABS: Total Triiodothyronine (T3) 1.46 NG/ML (0.97-1.69)
== END 2021-12-19 07:15 | disposition home or self-care (01) ==
PROVIDERS: PCP Family Medicine; Visit Provider Family Medicine
DX: E11.9 Type 2 diabetes mellitus without complications (principal); I10 Essential (primary) hypertension; E03.9 Hypothyroidism, unspecified; R53.1 Weakness
CPT/HCPCS: 36415; 80053; 82550; 83036; 84439; 84443; 84480; 85025

== ENCOUNTER 2022-02-19 09:52 | Outpatient (CLI) | payer MEDICARE, BC, SELFPAY ==
--- NOTE | ~2022-02-19 | DEXA_ITS ---
Bone Density Report Name: IAM WAGNER Age: 76 Sex: Female Ethnicity: White Date of : 1945 Indication: postmenopausal; screening for osteoporosis; inflammatory bowel disease; hysterectomy; Referring Provider: RJ KHOURY Study: Bone densitometry was performed. Exam Date: February 19, 2022 Accession number: [id number] Bone Density: Region BMD T-score Z-score Classification AP Spine(L1-L4) 0.631 -3.8 -1.3 Osteoporosis Femoral Neck (Left) 0.438 -3.7 -1.5 Osteoporosis Total Hip (Left) 0.537 -3.3 -1.4 Osteoporosis Femoral Neck (Right) 0.427 -3.8 -1.6 Osteoporosis Total Hip (Right) 0.565 -3.1 -1.2 Osteoporosis Total Hip Mean 0.551 -3.2 -1.3 Osteoporosis World Health Organization criteria for BMD impression classify patients as: Normal (T-score at or above -1.0), Osteopenia (T-score between -1.0 and -2.5), or Osteoporosis (T-score at or below -2.5). 10-year Fracture Risk: FRAX not reported because: Some T-score for Spine Total or Hip Total or Femoral Neck at or below -2.5 Clinical Information Provided by Patient: Has the following medical conditions: Inflammatory bowel diseases, Hysterectomy Patient maximum height was 62 Menopause Age: 38 Drinks caffeinated beverages Onset of menses at age 13 Number of children 1 Impression: The patient has osteoporosis, based on the Total Spine T-score. Discussion: INCREASED RISK OF FRACTURE. BONE DENSITY IS UNDESIRABLY LOW AT ONE OR MORE SKELETAL SITES, CONSISTENT WITH POSTMENOPAUSAL OSTEOPOROSIS. This patient's lowest T-score meets the World Health Organization's (WHO) criteria for osteoporosis at one or more sites (T-score -2.5 or below). In untreated patients, the risk of osteoporotic fracture increases approximately two-fold for each 1.0 SD decrease in T-score. Low bone density is not the only risk factor for fracture; also consider factors such as patient's age, frailty or poor health, risk of falling, risk of injury, previous osteoporotic fracture, family history of osteoporosis, cigarette smoking, low body weight, etc. Not everyone with low bone mineral density has osteoporosis; osteomalacia and other metabolic bone disorders should also be considered. Patients who have osteoporosis should be evaluated for specific diseases and conditions (secondary causes) that may cause or contribute to bone loss. The [place] [employer]ocr[employer] (AACE) and National Osteoporosis Foundation (NOF) recommend pharmacologic intervention for all postmenopausal women whose T-score is in this range. The patient should follow a healthful lifestyle (good nutrition with adequate calcium and vitamin D, and appropriate weight-bearing exercise). Follow-Up: Consider a repeat BMD and Vertebral Fracture Assessment (VFA) exam in 2 years or sooner if
--- NOTE | ~2022-02-19 | MM_ITS ---
EXAMINATION: MM screening [facility] BI w deidrre HISTORY: Screening TECHNIQUE: Craniocaudal and mediolateral oblique 3-D tomosynthesis images were obtained and synthetic 2-D images were generated. CAD analysis was submitted and interpreted. COMPARISON: Comparison to multiple prior studies sequentially, with oldest reviewed study dated 02/2012. BREAST PARENCHYMAL COMPOSITION: There are scattered areas of fibroglandular density. FINDINGS: There is no evidence of suspicious mass, calcification, or architectural distortion to sugg est malignancy in either breast. There has been no suspicious interval change. IMPRESSION: 1. No mammographic evidence of malignancy. 2. Recommend routine screening mammography in one year. BI-RADS Category 1: Negative Reviewed, dictated and finalized at location A.
== END 2022-02-19 09:53 | disposition home or self-care (01) ==
LOC: ANHIMG 09:55
PROVIDERS: PCP Family Medicine; Visit Provider Family Medicine
DX: Z12.31 Encounter for screening mammogram for malignant neoplasm of breast (principal); Z78.0 Asymptomatic menopausal state; M81.0 Age-related osteoporosis without current pathological fracture
CPT/HCPCS: 77063; 77067; 77080

== ENCOUNTER 2022-03-05 09:29 | Outpatient (CLI) | payer MEDICARE, BC, SELFPAY ==
[2022-03-05 10:07] LABS: Hemoglobin A1C 6.9 % (<5.7)
[2022-03-05 10:11] LABS: Alanine Aminotransferase 22 U/L (6-35); Albumin Level 4.8 g/dL (3.5-5.1); Alkaline Phosphatase 87 U/L (38-126); Anion Gap 10 mmol/L (8-16); Aspartate Amino Transferase 31 U/L (14-36); Bilirubin,Total 0.5 mg/dL (0.2-1.3); Blood Urea Nitrogen 14 mg/dL (7-17); Calcium 9.7 mg/dL (8.4-10.2); Carbon Dioxide 24 mmol/L (22-30); Chloride 99 mmol/L (98-107); Estimated Glomerular Filt Rate > 60; Glucose 148 mg/dL (65-110); Potassium 4.6 mmol/L (3.4-5.0); Sodium 133 mmol/L (137-145)
[2022-03-05 10:28] LABS: Free T4 Free Thyroxine 1.61 ng/mL (0.78-2.19)
[2022-03-05 10:41] LABS: Total Triiodothyronine (T3) 1.44 NG/ML (0.97-1.69)
== END 2022-03-05 09:30 | disposition home or self-care (01) ==
LOC: ANHLAB 09:31
PROVIDERS: PCP Family Medicine; Visit Provider Nurse Practitioner Gerontology
DX: E03.9 Hypothyroidism, unspecified (principal); I10 Essential (primary) hypertension; E11.9 Type 2 diabetes mellitus without complications; E53.8 Deficiency of other specified B group vitamins
CPT/HCPCS: 36415; 80053; 82607; 83036; 84439; 84443; 84480

== ENCOUNTER 2022-03-20 10:28 | Outpatient (CLI) | payer MEDICARE, BC, SELFPAY ==
--- NOTE | 2022-03-20 10:43 | ECG_ITS ---
Measurements Intervals [place] Rate: 64 P: 31 LA: 146 QRS: 27 QRSD: 65 T: 30 QT: 400 QTc: 414 Interpretive Statements SINUS RHYTHM NO PREVIOUS ECG AVAILABLE FOR COMPARISON Electronically Signed On 03-20-2022 11:43:52 CDT by Joshua Martins M.D.
== END 2022-03-20 10:29 | disposition home or self-care (01) ==
LOC: ANHSURGERY 10:37
PROVIDERS: PCP Family Medicine; Visit Provider Otolaryngology
DX: Z01.818 Encounter for other preprocedural examination (principal); F17.210 Nicotine dependence, cigarettes, uncomplicated
CPT/HCPCS: 93005

== ENCOUNTER 2022-03-23 01:37 | Day surgery (SDC) | payer MEDICARE, BC, SELFPAY ==
[2022-03-19 14:48] VITALS: BMI 23.8
--- NOTE | 2022-03-19 14:58 | PC.NURSE ---
PRE-OP INSTRUCTIONS, PLEASE READ CAREFULLY Report to the Outpatient Waiting Room, entrance under the green pavilion located off [facility], at time _0930_ on date _03/23/22_. OR Time: _1130_. - You and your visitor will be asked to self-screen and do not enter if you have any COVID symptoms. - Only one visitor and NO children visitors are allowed at this time. - The patient visitor is requested to leave or wait in car when not with patient due to restrictions. - A mask is required within the hospital. Patients may have clear liquids (water, carbonated beverages, clear teas, apple juice) until 3 hours prior to surgery (0830 AM) with a maximum of 20 ounces. - No food from midnight until time of surgery Take the following medications with a SIP of water the morning of surgery: _ESCITALOPRAM, LEVOTHYROXINE, TYLENOL IF NEEDED_ Medications to discontinue per physician __N/A__, Date to take last dose____ Please no make-up, nail british, hairspray, perfume, deodorant, or body powder the day of surgery. No jewelry (including any body piercings) or valuables the day of surgery, leave them at home. Please take a shower or bath the night before, or the morning of, surgery with an antibacterial soap. Wear comfortable, loose fitting clothing. - Jewelry must be removed prior to entering the operating room. Rings and piercings that are not removed may be cut off. - The hospital will not accept responsibility for valuables. - Please leave all valuables, including medications, at home the day of surgery. If you are going home after surgery, a licensed fork truck driver must drive you home. - NO public transportation without another adult. - We recommend that an adult stay with you for 24 hours following discharge. - We also recommend that you do not drive, make important decision, drink alcoholic beverages, or take any drugs that were not prescribed by your health care provider for at least 24 hours after your discharge time. Follow any additional instructions given to you from your surgeon. If you or anyone in your household have experienced Covid symptoms in the past week, please notify your surgeon or the nurse liaison at the phone number below for possible testing. Telephone instructions given to ____PT and asked if any additional questions and then verbalized understanding. Patient advised to call surgeon office or pre surgery nurse liaison [phone] if any additional questions.
--- NOTE | 2022-03-22 17:45 | P.HP_ITS ---
H&P: HPI History of Present Illness Date/Time: 03/22/22 17:45 Chief Complaint: Tongue base lesion right-sided Narrative: planned surgical biopsy Review of Systems Review of Systems: All systems reviewed & are unremarkable except as noted in HPI and below FORMERLY [facility], [facility] Past Medical History Medical History Chronic cough Diabetes Dysphagia History of colon polyps Hypercholesterolemia Hypothyroidism Osteoarthritis Presence of neurostimulator TIA (transient ischemic attack) Urinary bladder incontinence Surgical History Surgical History H/O colonoscopy with polypectomy 02/08- repeat in 2025 History of esophagogastroduodenoscopy (EGD) 01/2021 Family History Family History Mother Breast cancer Heart disease Diabetes mellitus Social History Social History Social History: Smoking packs per day: 2 Smoking cigarettes per day: 40.0 Years smoked: 40 Smoking pack-years: 80.00 Smoking status: Former smoker Tobacco type: cigarettes Second hand tobacco smoke exposure: No Smoking end date: 07/22/07 Alcohol intake: former Alcohol use details: STATES DRANK IN HER YOUTH Substance use: never Substance use type: does not use Gender identity (if verbalized by the patient): Female Sexual Orientation (if Verbalized by the Patient): Straight or Heterosexual Spiritual care concerns: No Meds Home Medications and Allergies Home Medications Medication Instructions Recorded Confirmed Type acetaminophen 650 mg 650 mg PO Q24H 01/16/21 03/19/22 History tablet,extended release omeprazole 10 mg capsule,delayed 10 mg PO DAILY #30 caps 03/06/22 03/19/22 Rx release escitalopram oxalate 10 mg tablet 10 mg PO DAILY #30 tabs 03/09/22 03/19/22 Rx (Lexapro) levothyroxine 75 mcg tablet See Rx Instructions .Route 03/19/22 03/19/22 Rx (Euthyrox) .COMPLEX #90 tabs Allergies Allergy/AdvReac Type Severity Reaction Status Date / Time Sulfa (Sulfonamide Allergy Mild Hives Verified 03/19/22 14:45 Antibiotics) nitrofurantoin AdvReac Intermediate weakness Verified 03/19/22 14:45 [From Macrobid] Exam Narrative: normal ENT exam Assessment and Plan Assessment and plan (1) Benign neoplasm of base of tongue: Code(s): D10.1 - Benign neoplasm of tongue Status: Acute Assessment and Plan: plan OR direct laryngoscopy with endoscope biopsy. Risks discussed including bleeding infection damage to surrounding structures vocal cord paralysis need for tracheostomy persistent bleeding need for further procedures. Patient voiced understanding and agreed. (2) Pharyngeal mass: Code(s): J39.2 - Other diseases of pharynx Status: Acute
--- NOTE | 2022-03-23 07:07 | WPDHPUPDATE1 ---
History and Physical Update Update Date/Time: 03/23/22 07:07 History and Physical has been reviewed, including an updated exam of the patient. There are NO changes in the patient's condition. Risks, benefits, and alternatives have been discussed and questions answered. Patient agrees to proceed with procedure.
[2022-03-23] MEDS: ACETAMINOPHEN 500 MG TABLET 1000 MG PO (08:59)
[2022-03-23 09:00] VITALS: BP 141/54; PULSE 66; RESP 20; TEMP 36.4; O2SAT 100
[2022-03-23] MEDS: LACTATED RINGERS 1,000 ML 30 ML IV CONT (09:43)
--- NOTE | 2022-03-23 10:03 | WPDANESEPPF ---
Anes - Initial Pre Proc Eval Procedure: Operation Date: 03/23/22 11:30 Proposed Procedures p Direct Laryngoscopy with Excisional Biopsy - Marco Godwin MD Date/Time: 03/23/22 10:03 Surgeon: Marco Godwin MD Pre Op Diagnosis: Neoplasm of Tongue Patient Data Age: 76 Gender: F Height: 1.57 m Weight: 59.09 kg Last Vital Signs Temp 36.4 C 03/23/22 09:00 Pulse 66 03/23/22 09:00 Resp 20 03/23/22 09:00 BP 141/54 H 03/23/22 09:00 Pulse Ox 100 03/23/22 09:00 O2 Del Method Room Air 03/23/22 09:00 Allergies Allergy/AdvReac Type Severity Reaction Status Date / Time Sulfa (Sulfonamide Allergy Mild Hives Verified 03/19/22 14:45 Antibiotics) nitrofurantoin AdvReac Intermediate weakness Verified 03/19/22 14:45 [From Macrobid] Home Medications Medication Instructions Recorded Confirmed Type acetaminophen 650 mg 650 mg PO Q24H 01/16/21 03/19/22 History tablet,extended release omeprazole 10 mg capsule,delayed 10 mg PO DAILY #30 caps 03/06/22 03/19/22 Rx release escitalopram oxalate 10 mg tablet 10 mg PO DAILY #30 tabs 03/09/22 03/19/22 Rx (Lexapro) levothyroxine 75 mcg tablet See Rx Instructions .Route 03/19/22 03/19/22 Rx (Euthyrox) .COMPLEX #90 tabs Patient hx anesthesia problems: none Family hx anesthesia problems: none Results Review: All pre-operative results and documents have been reviewed as part of the pre-operative evaluation. [facility] Past Medical History Medical History Chronic cough Diabetes Dysphagia History of colon polyps Hypercholesterolemia Hypothyroidism Osteoarthritis Presence of neurostimulator TIA (transient ischemic attack) Urinary bladder incontinence Surgical History Surgical History H/O colonoscopy with polypectomy 02/08- repeat in 2025 History of esophagogastroduodenoscopy (EGD) 01/2021 Family History Family History Mother Breast cancer Heart disease Diabetes mellitus Social History Social History Social History: Smoking packs per day: 2 Smoking cigarettes per day: 40.0 Years smoked: 40 Smoking pack-years: 80.00 Smoking status: Former smoker Tobacco type: cigarettes Second hand tobacco smoke exposure: No Smoking end date: 07/22/07 Alcohol intake: former Alcohol use details: STATES DRANK IN HER YOUTH Substance use: never Substance use type: does not use Living arrangements: with family Gender identity (if verbalized by the patient): Female Sexual Orientation (if Verbalized by the Patient): Straight or Heterosexual Spiritual care concerns: No Anes - Eval Final PreProcedure Day of Procedure 03/23/22 10:03 Patient weight: normal Heart: regular rate and rhythm Lungs: decreased breath sounds Airway: Mallampati scale class II Neurological: alert and oriented Last oral intake: >/= 8 hours ASA classification: III Emergent: no Anesthetic plan: proceed Anesthesia type and monitoring: general ETT and standard monitoring Results Review: All pre-operative results and documents have been reviewed as part of the pre-operative evaluation. Informed Consent: The patient's anesthetic plan and its attendant risks and benefits were discussed with the patient/family/POA. Questions were solicited and answers provided to the satisfaction of the patient/family/POA.
[2022-03-23] MEDS: ceFAZolin 2 GM/D5W 50 ML 2 GM/50 ML BAG IVPB (10:21)
[2022-03-23 10:22] LABS: Glucose Point of Care 144 mg/dl (65-105)
[2022-03-23] MEDS: OXYMETAZOLINE HCL 0.05% NAS 15 ML BTL (*BKC) 1 SPRAY NASAL (10:34)
[2022-03-23 10:58] VITALS: BP 156/84; PULSE 91; RESP 15; TEMP 36.6; O2SAT 99
--- NOTE | 2022-03-23 11:05 | W.PM.PROC2 ---
Procedure Note - Detailed Date of Procedure 03/23/22 Pre-op Diagnosis Neoplasm of Tongue, right tongue base lesion Post-op Diagnosis Same Procedure Performed Direct laryngoscopy biopsy of right time base lesion Surgeon Marco Godwin MD Anesthesia General Indications See above Findings Lymphoid tissue appearing right tongue base pharyngeal wall lesion biopsied sent for analysis Description of Procedure Patient identified consent verified in preop. Patient brought operating room time-out performed anesthesia induced small injury during intubation intubated successfully. Patient prepped draped bed turned 2nd time-out performed I performed direct laryngoscopy with the laryngoscope bleeding suction bleeding area identified Afrin-soaked pledgets placed against this. Right tongue base excess tissue identified, this area was then biopsied, Afrin-soaked pledgets held against it for minutes. Bleeding was minimal hemostasis was adequate following the procedure laryngoscope removed Afrin-soaked pledgets removed maxillary tooth mouth guard removed patient tolerated the procedure well care the patient given Anesthesiology no complications blood loss was less than 1 cc. Taken to PACU. Estimated Blood Loss 1 Drains No Packing No Pathology Yes Complications No immediate complications Condition Stable Disposition PACU
[2022-03-23 11:15] VITALS: BP 155/85; PULSE 81; RESP 24; O2SAT 100
[2022-03-23 11:16] LABS: Glucose Point of Care 140 mg/dl (65-105)
[2022-03-23 11:30] VITALS: BP 166/71; PULSE 68; RESP 14; O2SAT 100
--- NOTE | 2022-03-23 11:36 | SUR.PHASEI ---
1135: Simple mask removed.
[2022-03-23 11:45] VITALS: BP 158/69; PULSE 66; RESP 19; O2SAT 96
[2022-03-23 12:00] VITALS: BP 159/70; PULSE 65; RESP 16
== END 2022-03-23 12:55 | disposition home or self-care (01) ==
PROVIDERS: PCP Family Medicine; Visit Provider Otolaryngology
PROC: 0CJS8ZZ Inspection of Larynx, Via Natural or Artificial Opening Endoscopic (ICD-10-PCS; CPT 31535; principal; 2022-03-23 11:30)
DX: C01 Malignant neoplasm of base of tongue (principal); E11.9 Type 2 diabetes mellitus without complications; E03.9 Hypothyroidism, unspecified; E78.00 Pure hypercholesterolemia, unspecified; R32 Unspecified urinary incontinence; Z86.73 Personal history of transient ischemic attack (TIA), and cerebral infarction without residual deficits; Z87.891 Personal history of nicotine dependence
CPT/HCPCS: 31535; 82948; 88304; 88342; A9270; J0330; J0690; J2405; J2704; J3010; J7120

== ENCOUNTER 2023-06-12 08:32 | Outpatient (CLI) | payer MEDICARE, BC, SELFPAY ==
[2023-06-12 09:14] LABS: Cholesterol 184 mg/dL (0-200); HDL Direct 56 mg/dL; Triglycerides 112 mg/dL (<150)
[2023-06-12 09:15] LABS: Hemoglobin A1C 5.6 % (<5.7)
[2023-06-12 09:25] LABS: LDL Cholesterol Direct 77 mg/dL
== END 2023-06-12 08:33 | disposition home or self-care (01) ==
LOC: ANHLAB 08:33
PROVIDERS: PCP Family Medicine; Visit Provider Physician Assistant
DX: E78.00 Pure hypercholesterolemia, unspecified (principal); E11.9 Type 2 diabetes mellitus without complications
CPT/HCPCS: 36415; 80061; 83036

== ENCOUNTER 2023-06-15 11:37 | Outpatient (CLI) | payer MEDICARE, BC, SELFPAY ==
--- NOTE | ~2023-06-15 | MM_ITS ---
EXAMINATION: MM screening y[facility] BI w deirdre HISTORY: Screening mammogram, family history of breast cancer in her mother. TECHNIQUE: Craniocaudal and mediolateral oblique 3-D tomosynthesis images were obtained and synthetic 2-D images were generated. CAD analysis was submitted and interpreted. COMPARISON: 02/19/2022, 02/16/2021 BREAST PARENCHYMAL COMPOSITION:There are scattered areas of fibroglandular density. FINDINGS: No suspicious mass, calcification, or architectural distortion are identified in either carlos ast to suggest malignancy. There has been no suspicious interval change. IMPRESSION: No mammographic evidence of malignancy. Recommend routine screening mammography in one year. BI-RADS Category 1: Negative Reviewed, dictated and finalized at location . [employer]
== END 2023-06-15 11:38 | disposition home or self-care (01) ==
LOC: ANHIMG 11:39
PROVIDERS: PCP Family Medicine; Visit Provider Family Medicine
DX: Z12.31 Encounter for screening mammogram for malignant neoplasm of breast (principal)
CPT/HCPCS: 77063; 77067

== ENCOUNTER 2024-01-21 08:22 | Outpatient (CLI) | payer MEDICARE, BC, SELFPAY ==
[2024-01-21 08:57] LABS: Basophils Percent Auto 0.3 % (0.2-1.2); Eosinophils Absolute Auto 0.1 K/mm3 (0-0.3); Eosinophils Percent Auto 2.1 % (0-4.4); Hematocrit 38.4 % (37.0-47.0); Hemoglobin 12.3 g/dL (12.0-15.0); Lymphocytes Percent Auto 26.2 % (18.3-44.2); Mean Corpuscular Hemoglobin 32.5 pg (26-34); Mean Corpuscular Volume 101.3 fl (80-100); Mean Platelet Volume 9.4 fl (7.4-10.4); Monocytes Absolute Auto 0.7 K/mm3 (0.1-0.6); Neutrophils Absolute Auto 2.1 K/mm3 (1.3-6.7); Neutrophils Percent Auto 54.4 % (45.5-73.1); Platelet Count Result 203 k/mm3 (150-375); Red Blood Count 3.79 M/mm3 (4.2-5.4); Red Cell Distribution Width 13.4 % (11.5-14.5); White Blood Count 3.8 K/mm3 (4.5-10.0)
[2024-01-21 09:07] LABS: Alanine Aminotransferase 23 U/L (6-35); Albumin Level 4.4 g/dL (3.5-5.1); Alkaline Phosphatase 62 U/L (38-126); Anion Gap 7 mmol/L (4-12); Aspartate Amino Transferase 29 U/L (14-36); Bilirubin,Total 0.5 mg/dL (0.2-1.3); Blood Urea Nitrogen 16 mg/dL (7-17); Calcium 9.3 mg/dL (8.4-10.2); Carbon Dioxide 27 mmol/L (22-30); Chloride 108 mmol/L (98-107); Cholesterol 169 mg/dL (0-200); Estimated Glomerular Filt Rate > 60; Glucose 74 mg/dL (65-110); HDL Direct 68 mg/dL; Potassium 4.6 mmol/L (3.4-5.0); Sodium 142 mmol/L (137-145); Triglycerides 92 mg/dL (<150)
[2024-01-21 09:10] LABS: Hemoglobin A1C 5.7 % (<5.7)
[2024-01-21 09:19] LABS: LDL Cholesterol Direct 78 mg/dL
== END 2024-01-21 08:23 | disposition home or self-care (01) ==
PROVIDERS: PCP Family Medicine; Visit Provider Physician Assistant
DX: E11.9 Type 2 diabetes mellitus without complications (principal); E78.2 Mixed hyperlipidemia; Z79.4 Long term (current) use of insulin
CPT/HCPCS: 36415; 80053; 80061; 83036; 85025

== ENCOUNTER 2024-06-08 13:57 | Outpatient (CLI) | payer MEDICARE, BC, SELFPAY ==
[2024-06-08 14:46] LABS: Alanine Aminotransferase 31 U/L (6-35); Albumin Level 4.2 g/dL (3.5-5.1); Alkaline Phosphatase 69 U/L (38-126); Anion Gap 5 mmol/L (4-12); Aspartate Amino Transferase 35 U/L (14-36); Bilirubin,Total 0.2 mg/dL (0.2-1.3); Blood Urea Nitrogen 19 mg/dL (7-17); Calcium 9.3 mg/dL (8.4-10.2); Carbon Dioxide 25 mmol/L (22-30); Chloride 106 mmol/L (98-107); Estimated Glomerular Filt Rate > 60; Glucose 129 mg/dL (65-110); Potassium 4.2 mmol/L (3.4-5.0); Sodium 136 mmol/L (137-145)
[2024-06-08 15:11] LABS: Free T4 Free Thyroxine 1.27 ng/mL (0.78-2.19)
[2024-06-08 15:16] LABS: Thyroid Stimulating Hormone 0.501 uIU/mL (0.465-4.680)
[2024-06-08 19:35] LABS: Hemoglobin A1C 6.3 % (<5.7)
== END 2024-06-08 13:58 | disposition home or self-care (01) ==
PROVIDERS: PCP Family Medicine; Visit Provider Physician Assistant
DX: E07.9 Disorder of thyroid, unspecified (principal); E11.9 Type 2 diabetes mellitus without complications; Z79.899 Other long term (current) drug therapy
CPT/HCPCS: 36415; 80053; 83036; 84439; 84443

== ENCOUNTER 2024-09-25 00:31 | Day surgery (SDC) | payer MEDICARE, BC, SELFPAY ==
[2024-09-10 15:07] VITALS: BMI 22.3
--- NOTE | 2024-09-10 15:19 | PC.NURSE ---
Report to the Outpatient Waiting Room, entrance under the green pavilion located off [facility], at time ___0715am____ on date ___09/25/24 ____. Planned Procedure Time: _0915am .? Time changes happen often and if your time is changed the preop area will call you the afternoon before. - You and your visitor will be asked to self-screen and do not enter if you have any COVID symptoms. Please call surgeon if you need to reschedule. - A mask is optional within the hospital at this time. Patients may have clear liquids (water, carbonated beverages, clear teas, apple juice) until 3 hours prior to surgery with a maximum of 20 ounces. - No food from midnight until time of surgery and no smoking, or chewing tobacco (or any form of nicotine). No chewing gum, candy or mints. (0615am) Take only the following medications with a SIP of water on the morning of surgery: Levothyroxine, Tylenol if needed DO NOT STOP ANY OF YOUR OTHER PRESCRIPTION MEDICATIONS PRIOR TO SURGERY EXCEPT THE FOLLOWING Hold all vitamins and supplements for 3 days per anesthesiologist. Date take last dose___09/21/24 ____ Medications to discontinue per physician Nguyễn for [address] Villalpando ( pt stated this) Date to take last dose___09/21/24 __(pt stated this) Please no make-up, nail pashto, hairspray, perfume, deodorant, or body powder the day of surgery.? No jewelry (including any body piercings) or valuables the day of surgery, leave them at home.? Please take a shower or bath the night before, or the morning of, surgery with an antibacterial soap.? Wear comfortable, loose fitting clothing.? - Jewelry must be removed prior to entering the operating room.? Rings and piercings that are not removed may be cut off. - The hospital will not accept responsibility for valuables.? - Please leave all valuables, including medications, at home the day of surgery. If you are going home after surgery, a licensed xm1 tank driver must drive you home.? - NO public transportation without another adult if you receive anesthesia. - We recommend that an adult stay with you for 24 hours following discharge. - We also recommend that you do not drive, make important decision, drink alcoholic beverages, or take any drugs that were not prescribed by your health care provider for at least 24 hours after your discharge time. Follow any additional instructions given to you from your surgeon. I called Azra Villalpando and notified them In VM that pt does not want it replaced, just taken out, and Consent and procedure needs ammended/New if so. Await a call back from them. Telephone instructions given to ___patient and asked if any additional questions and then verbalized understanding. Patient advised to call surgeon office or pre surgery nurse liaison [phone] if any additional questions.
--- NOTE | 2024-09-20 17:57 | PM.IMHP ---
H&P: HPI History of Present Illness Date/Time: 09/20/24 17:57 Chief Complaint: UUI Narrative: presents for InterStim revision Review of Systems Review of Systems: All systems reviewed & are unremarkable except as noted in HPI and below PMFSH Past Medical History Medical History Presence of neurostimulator Urinary bladder incontinence TIA (transient ischemic attack) Hypothyroidism Diabetes Osteoarthritis Hypercholesterolemia History of colon polyps Dysphagia Chronic cough Surgical History Surgical History History of esophagogastroduodenoscopy (EGD) 01/2021 H/O colonoscopy with polypectomy 02/08- repeat in 2025 Family History Family History Mother Breast cancer Heart disease Diabetes mellitus Social History Social History Social History: Smoking packs per day: 1.5 Smoking cigarettes per day: 30.0 Years smoked: 47 Smoking pack-years: 70.50 Smoking status: Former smoker Tobacco type: cigarettes Second hand tobacco smoke exposure: No Smoking end date: 07/22/07 Alcohol intake: never Alcohol use details: STATES DRANK IN HER YOUTH Substance use: never Substance use type: does not use Do You Feel Safe in your Home?: Yes Lack of Transportation: No Lack of Food: Never True Current Housing: I Have Housing Concerned About Future Housing: No Difficulty Paying Gas/Electric Bills: No Difficulty Paying for Meds: No Currently Unemployed: YES Education: Associate Degree Difficulty w/ Childcare or Family Care: No Living arrangements: with family Additional living arrangements comments: [place] Occupation/Education: retired Gender identity (if verbalized by the patient): Female Sexual Orientation (if Verbalized by the Patient): Straight or Heterosexual Spiritual care concerns: No Meds Home Medications and Allergies Home Medications ?Medication ?Instructions ?Recorded ?Confirmed ?Type loperamide 2 mg capsule (Imodium 2 mg PO Q6H PRN loose stool 04/17/23 09/10/24 History A-D) saliva substitute combo no.9 15 ml mucous membrane QID 04/17/23 09/10/24 History (Biotene Dry Mouth Oral Rinse mouthwash) blood sugar diagnostic (OneTouch #100 ea 06/07/23 09/10/24 Rx Ultra Test strips) ipratropium bromide 21 mcg (0.03 2 spray intranasal TID #30 mL 10/16/23 09/10/24 Rx %) nasal spray phenol 1.4 % mucosal aerosol spray 4 spray mucous membrane Q4H 10/16/23 09/10/24 History (Chloraseptic Throat [place]) Farxiga 5 mg tablet (dapagliflozin 5 mg PO DAILY #30 tabs 06/09/24 09/10/24 Rx propanediol) levothyroxine 75 mcg tablet See Rx Instructions .Route 06/17/24 09/10/24 Rx .COMPLEX #90 tabs rosuvastatin 5 mg tablet See Rx Instructions .Route 07/12/24 09/10/24 Rx .COMPLEX #90 tabs escitalopram oxalate 10 mg tablet See Rx Instructions .Route 08/18/24 09/10/24 Rx .COMPLEX #90 tabs Allergies Allergy/AdvReac Type Severity Reaction Status Date / Time Sulfa (Sulfonamide Allergy Mild Hives Verified 09/10/24 15:04 Antibiotics) nitrofurantoin (From AdvReac Intermediate weakness Verified 09/10/24 15:04 Macrobid) Exam Narrative: NAD normal breathing Assessment and Plan Assessment and plan (1) Urge incontinence: Code(s): N39.41 - Urge incontinence Status: Acute Assessment and Plan: revmove and replace interstim
--- NOTE | 2024-09-24 12:47 | P.PNAN_ITS ---
Anes - Initial Pre Proc Eval Procedure: Operation Date: 09/25/24 08:30 Proposed Procedures p Removal of Neurostimulator Implant - Inocencio Villalpando MD Date/Time: 09/24/24 12:47 Surgeon: Inocencio Villalpando MD Pre Op Diagnosis: urge incont Patient Data Age: 79 Gender: F Height: 1.57 m Weight: 55.3 kg Allergies Allergy/AdvReac Type Severity Reaction Status Date / Time Sulfa (Sulfonamide Allergy Mild Hives Verified 09/10/24 15:04 Antibiotics) nitrofurantoin (From AdvReac Intermediate weakness Verified 09/10/24 15:04 Macrobid) Home Medications ?Medication ?Instructions ?Recorded ?Confirmed ?Type loperamide 2 mg capsule (Imodium 2 mg PO Q6H PRN loose stool 04/17/23 09/10/24 History A-D) saliva substitute combo no.9 15 ml mucous membrane QID 04/17/23 09/10/24 History (Biotene Dry Mouth Oral Rinse mouthwash) blood sugar diagnostic (OneTouch #100 ea 06/07/23 09/10/24 Rx Ultra Test strips) ipratropium bromide 21 mcg (0.03 2 spray intranasal TID #30 mL 10/16/23 09/10/24 Rx %) nasal spray phenol 1.4 % mucosal aerosol spray 4 spray mucous membrane Q4H 10/16/23 09/10/24 History (Chloraseptic Throat [place]) Farxiga 5 mg tablet (dapagliflozin 5 mg PO DAILY #30 tabs 06/09/24 09/10/24 Rx propanediol) levothyroxine 75 mcg tablet See Rx Instructions .Route 06/17/24 09/10/24 Rx .COMPLEX #90 tabs rosuvastatin 5 mg tablet See Rx Instructions .Route 07/12/24 09/10/24 Rx .COMPLEX #90 tabs escitalopram oxalate 10 mg tablet See Rx Instructions .Route 08/18/24 09/10/24 Rx .COMPLEX #90 tabs Patient hx anesthesia problems: none Family hx anesthesia problems: none Results Review: All pre-operative results and documents have been reviewed as part of the pre- operative evaluation. [facility] Past Medical History Medical History (Updated 09/24/24 @ 12:47 by Jere Palacios DO) Tongue cancer Presence of neurostimulator Urinary bladder incontinence TIA (transient ischemic attack) Hypothyroidism Diabetes Osteoarthritis Hypercholesterolemia History of colon polyps Dysphagia Chronic cough Surgical History Surgical History (Updated 09/24/24 @ 12:47 by Jere Palacios DO) History of hysterectomy History of esophagogastroduodenoscopy (EGD) 01/2021 H/O colonoscopy with polypectomy 02/08- repeat in 2025 Family History Family History Mother Breast cancer Heart disease Diabetes mellitus Social History Social History Social History: Smoking packs per day: 1.5 Smoking cigarettes per day: 30.0 Years smoked: 47 Smoking pack-years: 70.50 Smoking status: Former smoker Tobacco type: cigarettes Second hand tobacco smoke exposure: No Smoking end date: 07/22/07 Alcohol intake: never Alcohol use details: STATES DRANK IN HER YOUTH Substance use: never Substance use type: does not use Do You Feel Safe in your Home?: Yes Lack of Transportation: No Lack of Food: Never True Current Housing: I Have Housing Concerned About Future Housing: No Difficulty Paying Gas/Electric Bills: No Difficulty Paying for Meds: No Currently Unemployed: YES Education: Associate Degree Difficulty w/ Childcare or Family Care: No Living arrangements: with family Additional living arrangements comments: [place] Occupation/Education: retired Gender identity (if verbalized by the patient): Female Sexual Orientation (if Verbalized by the Patient): Straight or Heterosexual Spiritual care concerns: No Anes - Eval Final PreProcedure Day of Procedure 09/24/24 12:47 Patient weight: normal Heart: regular rate and rhythm Lungs: clear to auscultation and normal air movement Airway: Mallampati scale class II Neurological: alert and oriented Last oral intake: >/= 8 hours ASA classification: III Emergent: no Anesthetic plan: proceed Anesthesia type and monitoring: general GIVS and standard monitoring Results Review: All pre-operative results and documents have been reviewed as part of the pre- operative evaluation. Informed Consent: The patient's anesthetic plan and its attendant risks and benefits were discussed with the patient/family/POA. Questions were solicited and answers provided to the satisfaction of the patient/family/POA.
--- NOTE | ~2024-09-25 | XR_ITS ---
EXAMINATION: XR fluoroscopy no charge DATE: 09/25/2024 09:01 INDICATION: Nerve stimulator implant removal TECHNIQUE: Single fluoroscopic image of the pelvis was obtained during procedure performed by Dr. Savana silverman. Radiologist was not present for the imaging or procedure. The amount of fluoroscopy time used d uring this procedure was 0.2 minutes. Total DAP was 1.0693 Gycm^2 COMPARISON: None. FINDINGS: Images demonstrate the tip of a metallic probe projecting over the sacral nerve root stimulator, like ly left-sided although markers are not included for confirmation. IMPRESSION: 1. Fluoroscopy utilized during cervical nerve root stimulator lead removal. See procedure note for fu rther detail. Reviewed, dictated and finalized at location B. R INSPECTOR IMPRESSION: 1. Fluoroscopy utilized during cervical nerve root stimulator lead removal. See procedure note for further detail.
--- OUTSIDE RECORDS SUMMARY | 2024-09-25 00:34 | XMS_ITS | Clinical Summary ---
Author Organization [facility] Address [address] [place] [address] Care Team Providers Care Apartment Hotel Manager Name Role Phone Mariana Khan MD Primary Care Provider + Source Comments [facility],non-owned Affiliates and Associated Physician Practices is amultiple site organization consisting of ambulatory clinics and hospital sitesin [place], [place], [place] and [place]. This disclosure is being madepursuant to the Care Everywhere program and may not contain all information available regarding this patient. Last updated 18.[facility] [employer] Allergies Active Allergy Reactions Criticality Noted Date Comments Diclofenac Epolamine Itching 04/04/2022 Sulfa Drugs Itching 04/04/2022 Medications * Be aware that medications may not be up to date on this document. Alwaysverify current medications with the patient. Medication Sig Dispensed Refills Start Date End Date Status levothyroxine (Synthroid) 75 MCG tablet Take 1 (one) tablet by mouth once daily 03/20/2022 Active escitalopram (Lexapro) 10 MG tablet Take 1 (one) tablet by mouth once daily 11/20/2022 Active acetaminophen (Tylenol) 500 MG tablet Take 2 (two) tablets by mouth nightly as needed for Fever or Pain Maximum allowable Acetaminophen amount = 4 Grams (4000 mg) / 24 hours. Active chlorpheniramine (EQ Chlortabs) 4 MG tablet Take 1 (one) tablet by mouth every 6 hours as needed for Nasal Congestion or Allergies Active loperamide (Imodium) 2 MG capsule Take 1 (one) capsule by mouth once Takes one every 3 days Active rosuvastatin (Crestor) 5 MG tablet Take 1 (one) tablet by mouth once daily 04/09/2023 Active Mouthwashes (BIOTENE DRY MOUTH MT) by Mouth/Throat route as needed Active SALINE NASAL SPRAY NA [place] 1 spray into the nose as needed Active benzocaine-menthol (Chloraseptic) 6-10 MG lozenge Take by mouth as needed for Sore Throat Active famotidine (Pepcid) 20 MG tablet Take 1 (one) tablet by mouth once daily 03/18/2024 Active Active Problems Problem Noted Date Diagnosed Date Acute radiation dermatitis 02/14/2023 Seborrheic keratoses 02/14/2023 Actinic keratosis 02/14/2023 Melanocytic nevi of trunk 02/14/2023 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 - Hematology/Oncology [address] [place] [address] Nikky Sewell, MEENA-SOLAR APPLICATIONS DEVELOPMENT ENGINEER Cancer of base of tongue (HCC) (Primary Dx) 06/30/2024 10:53 AM DAYLIGHT DRILLER - 06/30/2024 11:59 PM DAYLIGHT DRILLER Hospital Encounter [facility] [address] [facility] [place] [address] Discharge Disposition: Home or Self Care 06/30/2024 Travel from Last 3 Months Immunizations Name Administration Dates Next Due Covid Moderna primary monova lent 12+ yr 0.5mL 10/11/2020,08/31/2020 INFLUENZA VACCINE 05/01/2022,05/05/2018 INFLUENZA VACCINE, HIGH-DOSE , QUADR. (FLUZONE HIGH-DOSE QUADRIVALENT; 65Y+), 0.7 ML (HD-IIV4) 05/10/2023,05/01/2022,05/10/2021,2019 INFLUENZA VACCINE, QUADR. (F LUZONE; FLULAVAL; FLUARIX; AFLURIA QUADRIVALENT; 6MO+), 0.5 ML (IIV4) 05/06/2019 MODERNA SARS-COV-2 COVID-19 VACCINE 0.25ML 02/12/2022 PNEUMOCOCCAL PCV20 CONJ VAC IM 05/20/2012 TDAP (7yrs+) 09/17/2002 ZOSTER VACCINE, LIVE 02/10/2009 Zoster Hzv Vacc Recombinant Inj Im 12/27/2017, Social History Tobacco Use Types Packs/Day Years Used Date Smoking Tobacco: Former Cigarettes Smokeless Tobacco: Never Tobacco Cessation:Counseling Given: Not Answered Alcohol Use Standard Drinks/Week Comments Never 0 (1 standard drink = 0.6 oz pur e alcohol) AUDIT-C Answer Date Recorded Q1: How often do you have a drink containing alcohol? Never 10/10/2022 Q2: How many drinks containi ng alcohol do you have on a typical day when you are drinking? Patient does not drink Q3: How often do you have si x or more drinks on one occasion? Never 10/10/2022 PHQ-2 Answer Date Recorded PHQ2 TOTAL SCORE 0 04/16/2022 Hunger Vital Sign Answer Date Recorded Within the past 12 months, y ou worried that your food would run out before you got the money to buy more. Never true 06/13/20 22 Within the past 12 months, t he food you bought just didn't last and you didn't have money to get more. Never true 06/13/2022 Sex and Gender Information Value Date Recorded Sex Assigned at Not on file Gender Identity Not on file Sexual Orientation Not on file Last Filed Vital Signs Vital Sign Reading Time Taken Comments Blood Pressure 124/78 06/30/2024 11:10 AM DAYLIGHT DRILLER Pulse 64 06/30/2024 11:10 AM DAYLIGHT DRILLER Temperature 36.6 C (97.9 F) 06/30/2024 11:10 AM DAYLIGHT DRILLER Respiratory Rate 20 06/30/2024 11:10 AM DAYLIGHT DRILLER Oxygen Saturation 98% 06/30/2024 11:10 AM DAYLIGHT DRILLER Inhaled Oxygen Concentration - - Weight 56.9 kg (125 lb 6.4 oz) 06/30/2024 11:10 AM DAYLIGHT DRILLER Height 157.5 cm (5' 2 ) 06/26/2024 1:36 PM DAYLIGHT DRILLER Body Mass Index 22.94 06/26/2024 1:36 PM DAYLIGHT DRILLER Plan of Treatment Upcoming Encounters Date Type Department Care Team (Late st Contact Info) Description 12/28/2024 10:40 AM CDT Office Visit [facility] - Hematology/Oncology [address] [place] [address] Mariela Gruber MD [address] [facility] [place] [address] 01/01/2025 1:00 PM CDT Appointment [facility] CAT SCAN [address] [place] [address] Balbir Carrillo MD [address] [place] [phone] 01/01/2025 1:45 PM CDT Office Visit [facility] - ENT [address] [place] [phone] Balbir Carrillo MD [address] [place] [address] 01/04/2025 10:00 AM CDT Appointment [facility] RAD ONC [address] [place] [address] Major Shearer MD [address] [place] [address] Health Maintenance Due Date Last Done Comments BONE DENSITY TESTING 1945 MEDICARE AWV 12 MONTHS 1945 DTAP/TDAP/TD VACCINES (2 - Td or Tdap) 09/17/2012 09/17/2002 Respiratory Syncytial Virus (RSV) Vaccine Pt: or over 60 yrs (1 - 1-dose 75+ series) 2020 DIABETES RETINOPATHY SCREENING 07/02/2022 DIABETES-FOOT EXAM WITH MONOFILAMENT 07/02/2022 DIABETES-HGB A1C 09/11/2022 06/11/2022 COVID-19 VACCINE ( season) 2024 08/01/2022, 02/12/2022, 05/14/2021, Additional history exists INFLUENZA VACCINE (#1) 2024 , 05/01/2022, 05/01/2022, Additional history exists DEPRESSION SCREENING 07/22/2024 04/16/2022 DIABETES - URINE PROTEIN SCREENING 07/22/2024 DIABETES-SERUM CREATININE 12/03/20242023, 06/27/2023, 06/03/2023, Additional history exists PNEUMOCOCCAL VACCINE 50+ Completed 05/20/2012 ZOSTER VACCINE Completed 12/27/2017, 040 03/2018, 02/10/2009 HEPATITIS B VACCINE Aged Out No longe r eligible based on patient's age to complete this topic HIB VACCINE Aged Out No longer eligi ble based on patient's age to complete this topic HPV VACCINE Aged Out No longer eligi ble based on patient's age to complete this topic MENINGOCOCCAL (Group B) VACCINE Aged Out No longer eligible based on patient's age to complete this topic MENINGOCOCCAL VACCINE Aged Out No ana jewels eligible based on patient's age to complete this topic Medical Devices Implanted Type Area Clinical Academic Allergist Device Identifier Shelf Expiration Date Model / Serial / Lot Port Implinfn Powerport Clrvu Argd Aviva Implanted:Qty: 1 on 05/11/[address] [facility] Right: Chest Wall [employer] 06/20/2023 [id number] / / [id number] Procedures Procedure Name Priority Date/Time Associated Diagnosis Comments T4 FREE Routine 06/30/2024 10:59 AM DAYLIGHT DRILLER Cancer of base of tongue (CMS/HCC) Hypothyroidism, unspecified type CBC W AUTO DIFFERENTIAL STAT 06/30/2024 10:59 AM DAYLIGHT DRILLER Cancer of base of tongue (HCC) TSH REFLEX FREE T4 Routine 06/30/2024 10 :59 AM DAYLIGHT DRILLER Cancer of base of tongue (CMS/HCC) Hypothyroidism, unspecified type [place] LARYNGOSCOPY,FLEX FIBER,DIAGNOSTIC Routine 06/27/2024 3:14 PM DAYLIGHT DRILLER Cancer of base of tongue (CMS/HCC) CREATININE - POCT INTERFACED Routine 12/04/2023 10:07 AM CDT HEMOGLOBIN A1C Routine 06/11/2022 11:38 PM DAYLIGHT DRILLER from Last 3 Months or Most Recently Relevant to Health Maintenance Results * (ABNORMAL) TSH REFLEX FREE T4 (06/30/2024 10:59 AM DAYLIGHT DRILLER) TSH 0.257(L) 0.350 - 4.940 uIU/mL 06/30/2024 11:55 AM [facility] Blood BLOOD SPECIMEN / Unknown Lab Venipuncture / Unknown 06/30/2024 10:59 AM DAYLIGHT DRILLER 06/30/2024 11:08 AM DAYLIGHT DRILLER Major Shearer MD LAB - CHEMISTRY ORD ERABLES [facility] [address] [place] [address], [facility] [phone] * (ABNORMAL) CBC W/ DIFFERENTIAL (06/30/2024 10:59 AM DAYLIGHT DRILLER) WBC 5.4 4.0 - 10.7 x10E9/L 06/30/2024 11:12 AM [facility] RBC Count 4.21 3.90 - 5.20 x10E12/L 06/30/2024 11:12 AM [facility] Hemoglobin 13.4 11.9 - 15.8 g/dL 06/30/2024 11:12 AM [facility] Hematocrit 41.9 34.8 - 46.1 % 06/30/2024 11:12 AM [facility] MCV 99.5(H) 80.0 - 98.0 fL 06/30/2024 11:12 AM [facility] MCH 31.8 26.7 - 33.6 pg 06/30/2024 11:12 AM [facility] MCHC 32.0 31.7 - 36.3 g/dL 06/30/2024 11:12 AM [facility] RDW-CV 13.6 11.3 - 14.8 % 06/30/2024 11:12 AM [facility] Platelet Count 175 150 - 420 x10E9/L 06/30/2024 11:12 AM [facility] MPV 10.2 7.8 - 11.4 fL 06/30/2024 11:12 AM [facility] Neutrophil % 68.7 41.0 - 74.0 % 06/30/2024 11:12 AM [facility] Lymphocyte % 18.6 17.0 - 47.0 % 06/30/2024 11:12 AM [facility] Monocyte % 11.0 3.0 - 11.0 % 06/30/2024 11:12 AM [facility] Eosinophil % 0.9 0.0 - 7.0 % 06/30/2024 11:12 AM [facility] Basophil % 0.4 0.0 - 1.6 % 06/30/2024 11:12 AM [facility] Immature Granulocytes % 0.4 0.0 - 1.0 % 06/30/2024 11:12 AM [facility] Neutrophil Absolute 3.69 1.60 - 7.50 x10E9/L 06/30/2024 11:12 AM [facility] Lymphocyte Absolute 1.00 1.00 - 4.40 x10E9/L 06/30/2024 11:12 AM [facility] Monocyte Absolute 0.59 0.15 - 1.00 x10E9/L 06/30/2024 11:12 AM [facility] Eosinophil Absolute 0.05 0.00 - 0.60 x10E9/L 06/30/2024 11:12 AM [facility] Basophil Absolute 0.02 0.00 - 0.13 x10E9/L 06/30/2024 11:12 AM [facility] Blood BLOOD SPECIMEN / Unknown Lab Venipuncture / Unknown 06/30/2024 10:59 AM DAYLIGHT DRILLER 06/30/2024 11:08 AM DAYLIGHT DRILLER Nikky Sewell TRANSFER IRON OPERATOR-SOLAR APPLICATIONS DEVELOPMENT ENGINEER LAB - HEMATO LOGY ORDERABLES [facility] [address] [place] [address], [facility] [phone] * T4 FREE (06/30/2024 10:59 AM DAYLIGHT DRILLER) T4 Free 1.3 0.7 - 1.5 ng/dL 06/30/2024 12:28 PM DAYLIGHT DRILLER [facility] Blood BLOOD SPECIMEN / Unknown Lab Venipuncture / Unknown 06/30/2024 10:59 AM DAYLIGHT DRILLER 06/30/2024 11:08 AM DAYLIGHT DRILLER Major Shearer MD LAB - CHEMISTRY ORD ERABLES [address] [address], [facility] [phone] * [place] LARYNGOSCOPY,FLEX FIBER,DIAGNOSTIC (06/27/2024 3:14 PM DAYLIGHT DRILLER) Narrative Balbir Carrillo MD - 06/27/2024 3:14 PM DAYLIGHT DRILLER Balbir Carrillo MD 06/27/2024 3:17 PM Procedure Note Anesthesia: Lidocaine 2% and Kar-Synephrine 1/2% Endoscopy Type: Flexible Ojonr-Vurkvycuzzedec-Qghaagpipqjg Procedure Details: Informed consent was obtained. The patient was placed in the sitting position. After topical anesthesia and decongestion, the 4 mm laryngoscope was passed. The nasal cavities, nasopharynx, oropharynx, hypopharynx, and larynx were all examined. Vocal cords were examined during respiration and phonation. Findings: -mild radiatoin changes to the base of tongue without lesions or masses - slight intrerval increase in size of papilloma on the left aryepiglottic fold but remains < 1cm in estimated size. Disposition: The patient tolerated procedure well. Complications: None EBL: none Balbir Carrillo MD PROCEDURE/MINOR SURG ICAL ORDERABLES * (ABNORMAL) CREATININE - POCT INTERFACED (12/04/2023 10:07 AM CDT) Creatinine POCT 0.78 0.30 - 1.30 mg/dL 12/04/2023 10:13 AM [facility] eGFR 78(L) >=90 mL/min/1.7 3 m2 12/04/2023 10:13 AM [facility] Blood BLOOD SPECIMEN / Unknown 12/04/2023 10:07 AM CDT 12/04/2023 10:13 AM T Major Shearer MD LAB - POINT OF CARE ORDERABLES [facility] [address] [place] [address], [place] [phone] * (ABNORMAL) HEMOGLOBIN A1C (06/11/2022 11:38 PM DAYLIGHT DRILLER) Hemoglobin A1c 9.1(H) <=5.6 % 06/12/2022 7:58 AM [facility] Estimated Average Glucose 214 mg/dL 06/12/2022 7:58 AM [facility] Comment: HbA1c Interpretation: Normal : < 5.7% Pre-diabetes: 5.7-6.4% Diabetes: Equal to or greater than 6.5% Test results diagnostic of diabetes should be repeated for confirmation. Treatment target values recommended by ADA and other clinical organizations should be used to evaluate metabolic control in patients. Reference: [place] [employer], Standards of Care in Diabetes -2020 In patients 70 years and older consider HbA1c target range of 7.0-7.5% (Reference: Jose Bustillo, et al. JAMDA. 2012) The Sebia assay for the measurement of HbA1c is a National Glycohemoglobin Standardization Program (NGSP) certified method. Blood BLOOD SPECIMEN / Unknown Venipuncture / Unknown 06/11/2022 11:38 PM DAYLIGHT DRILLER 06/11/2022 11:54 PM DAYLIGHT DRILLER Josette Nathan MD LAB - CHEMISTRY LOVE ADEN Performing Organization Address City/[facility]/ZIP Co de Phone Number [facility] [address] [place] [address], [place] [phone] from Last 3 Months or Most Recently Relevant to Health Maintenance Advance Directives * Full Code (Latest Code Status on File) Date Activated Date Inactivated Comments 06/11/2022 9:58 PM 06/25/2022 7:54 PM Care Teams Apartment Hotel Manager Relationship Specialty Start Date End Date Mariana Khan MD [address] [facility] [address] [place] [address] PCP - General Family Medicine 04/04/22
--- OUTSIDE RECORDS SUMMARY | 2024-09-25 00:34 | XMS_ITS ---
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 Past Plans ONCOLOGY TREATMENT Plan Name Start Date Discontinue Date Treatment Medications Discontinue Reason Plan Provider Cycles HEAD/NECK LOC ADV (CISPLATIN ) WEEKLY W/ RT 2 07/30/2022 CISplatin (Platinol)CISpl atin (Platinol) Infusion Therapy Complete Josette Nathan MD -1 of 6 cycles Radiation Treatments * Plan Last Treated On Elapsed Days Fractions Treated Prescribed Fraction Dose Prescribed Total Dose #BOT 06/25/2022 35 of 35 7,000 cGy Reference Point Last Treated On Elapsed Days Session Dose Total Dose PTV3 06/25/2022 200 cGy 7,000 cGy Lifetime Dose Tracking * Chemical Lifetime Dose Automatic Entry Manual Entr y Dose Length Product 2,364 mGy-cm 2,364 mGy-cm 0 mGy-cm Resolved Problems Problem Noted Date Diagnosed Date Resolved Date Sinusitis 07/02/2022 07/30/2022
--- OUTSIDE RECORDS SUMMARY | 2024-09-25 00:34 | XMS_ITS | Referral Summary ---
Author Organization [facility] Address [address] [place] [address] Care Team Providers Care Neurodiagnostic Technician Name Role Phone Mariana Khan MD Primary Care Provider + Source Comments [facility],non-owned Affiliates and Associated Physician Practices is amultiple site organization consisting of ambulatory clinics and hospital sitesin [place], [place], [place] and [place]. This disclosure is being madepursuant to the Care Everywhere program and may not contain all information available regarding this patient. Last updated 18.[facility] Encounters Date Type Department Care Team Description 06/30/2024 Travel 06/30/2024 10:53 AM CABLE PULLER - 06/30/2024 11:59 PM CABLE PULLER Hospital Encounter [facility]RAW[facility] [address] [facility] [place] [address] Discharge Disposition: Home or Self Care 06/30/2024 11:00 AM CABLE PULLER Office Visit [facility] - Hematology/Oncology [address] [place] [phone] Nikky Sewell, PETROPHYSICAL ENGINEER-BINDER STRIPPER HAND Cancer of base of tongue (HCC) (Primary Dx) from Last 3 Months Allergies Active Allergy Reactions Criticality Noted Date [...] as needed Active SALINE NASAL SPRAY NA [place] 1 spray into the nose as needed [...] Signed by Claire Stewart MD on 12/30/2023 Resolved Problems Problem Noted Date Diagnosed Date Resolved Date Sinusitis 07/02/2022 07/30/2022 Immunizations Name Administration Dates Next Due Covid [...] Comments Blood Pressure 124/78 06/30/2024 11:10 AM CABLE PULLER Pulse 64 06/30/2024 11:10 AM CABLE PULLER Temperature 36.6 C (97.9 F) 06/30/2024 11:10 AM CABLE PULLER Respiratory Rate 20 06/30/2024 11:10 AM CABLE PULLER Oxygen Saturation 98% 06/30/2024 11:10 AM CABLE PULLER Inhaled Oxygen Concentration - - Weight 56.9 kg (125 lb 6.4 oz) 06/30/2024 11:10 AM CABLE PULLER Height 157.5 cm (5' 2 ) 06/26/2024 1:36 PM CABLE PULLER Body Mass Index 22.94 06/26/2024 1:36 PM CABLE PULLER Functional Status Functional Status Response Date of Assess ment Is person deaf or have serious hearing difficult y? No 01/14/2024 Is person blind or have serious difficulty seein g? No 01/14/2024 Does person have serious dif ficulty walking/climbing stairs? No 01/14/2024 Does person have difficulty dressing/bathing? No 01/14/2024 Does person have difficulty doing errands alone? No 01/14/2024 Cognitive Status Response Date of Assessm ent Does person have difficulty concentrating/remembering/making decisions? No 01/14/2024 Plan of Treatment Upcoming Encounters Date Type Department Care Team (Late st Contact Info) Description 12/28/2024 10:40 AM CDT Office Visit [facility] - Hematology/Oncology [address] [place] [phone] Mariela Grubre MD [address] [facility] [address] 01/01/2025 1:00 PM CDT Appointment [facility] SCAN [address] [place] [address] Balbir Carrillo MD [address] [place] [id number] 01/01/2025 1:45 PM CDT Office Visit [facility] - ENT [address] [place] [address] Balbir Carrillo MD [facility] [place] [address] 01/04/2025 10:00 AM CDT Appointment [facility] RAD ONC [address] [place] [address] Major Shearer MD [address] [place] [address] Medical Devices Implanted Type Area Inventory Control Coordinator Device Identifier Shelf Expiration Date Model / Serial / Lot Port Implinfn Powerport Clrvu Argd Aviva Implanted:Qty: 1 on 05/11/2022 at [facility] Right: Chest Wall [employer] 06/20/2023 [id number] / / [id number] Procedures Procedure Name Priority Date/Time Associated Diagnosis Comments T4 FREE Routine 06/30/2024 10:59 AM CABLE PULLER Cancer of base of tongue (CMS/HCC) Hypothyroidism, unspecified type CBC W AUTO DIFFERENTIAL STAT 06/30/2024 10:59 AM CABLE PULLER Cancer of base of tongue (HCC) TSH REFLEX FREE T4 Routine 06/30/2024 10 :59 AM CABLE PULLER Cancer of base of tongue (CMS/HCC) Hypothyroidism, unspecified type SC LARYNGOSCOPY,FLEX FIBER,DIAGNOSTIC Routine 06/27/2024 3:14 PM CABLE PULLER Cancer of base of tongue (CMS/HCC) CREATININE - POCT INTERFACED Routine 12/04/2023 10:07 AM CDT HEMOGLOBIN A1C Routine 06/11/2022 11:38 PM CABLE PULLER from Last 3 Months or Most Recently Relevant to Health Maintenance Results * (ABNORMAL) TSH REFLEX FREE T4 (06/30/2024 10:59 AM CABLE PULLER) TSH 0.257(L) 0.350 - 4.940 uIU/mL 06/30/2024 11:[address] [facility] Blood BLOOD SPECIMEN / Unknown Lab Venipuncture / Unknown 06/30/2024 10:59 AM CABLE PULLER 06/30/2024 11:08 AM CABLE PULLER Major Shearer MD LAB - CHEMISTRY ORD ERABLES [facility] [address] [place] [address] [phone] * (ABNORMAL) CBC W/ DIFFERENTIAL (06/30/2024 10:59 AM [facility]) WBC 5.4 4.0 - 10.7 x10E9/L 06/30/2024 11:12 AM [facility] RBC Count 4.21 3.90 - 5.20 x10E12/L 06/30/2024 11:12 AM [facility] Hemoglobin 13.4 11.9 - 15.8 g/dL 06/30/2024 11:12 AM [facility] Hematocrit 41.9 34.8 - 46.1 % 06/30/2024 11:12 AM [facility] MCV 99.5(H) 80.0 - 98.0 fL 06/30/2024 11:12 AM [facility] MCH 31.8 26.7 - 33.6 pg 06/30/2024 11:12 AM [facility] MCHC 32.0 31.7 - 36.3 g/dL 06/30/2024 11:12 AM [facility] RDW-CV 13.6 11.3 - 14.8 % 06/30/2024 11:12 AM [facility] Platelet Count 175 150 - 420 x10E9/L 06/30/2024 11:12 AM [facility] MPV 10.2 7.8 - 11.4 fL 06/30/2024 11:12 AM [facility] Neutrophil % 68.7 41.0 - 74.0 % 06/30/2024 11:12 AM [facility] Lymphocyte % 18.6 17.0 - 47.0 % 06/30/2024 11:12 AM [facility] Monocyte % 11.0 3.0 - 11.0 % 06/30/2024 11:12 AM [facility] Eosinophil % 0.9 0.0 - 7.0 % 06/30/2024 11:12 AM [facility] Basophil % 0.4 0.0 - 1.6 % 06/30/2024 11:12 AM [facility] Immature Granulocytes % 0.4 0.0 - 1.0 % 06/30/2024 11:12 AM [facility] Neutrophil Absolute 3.69 1.60 - 7.50 x10E9/L 06/30/2024 11:12 AM [facility] Lymphocyte Absolute 1.00 1.00 - 4.40 x10E9/L 06/30/2024 11:12 AM [facility] Monocyte Absolute 0.59 0.15 - 1.00 x10E9/L 06/30/2024 11:12 AM [facility] Eosinophil Absolute 0.05 0.00 - 0.60 x10E9/L 06/30/2024 11:12 AM [facility] Basophil Absolute 0.02 0.00 - 0.13 x10E9/L 06/30/2024 11:12 AM [facility] Blood BLOOD SPECIMEN / Unknown Lab Venipuncture / Unknown 06/30/2024 10:59 AM CABLE PULLER 06/30/2024 11:08 AM CABLE PULLER Nikky Sewell APRN-BINDER STRIPPER HAND LAB - HEMATO LOGY ORDERABLES [address] [address], [facility] [phone] * T4 FREE (06/30/2024 10:59 AM CABLE PULLER) T4 Free 1.3 0.7 - 1.5 ng/dL 06/30/2024 12:28 PM [facility] Blood BLOOD SPECIMEN / Unknown Lab Venipuncture / Unknown 06/30/2024 10:59 AM CABLE PULLER 06/30/2024 11:08 AM CABLE PULLER Major Shearer MD LAB - CHEMISTRY ORD ERABLES [address] [address], [facility] [phone] * SC LARYNGOSCOPY,FLEX FIBER,DIAGNOSTIC (06/27/2024 3:14 PM CABLE PULLER) Narrative Balbir Carrillo MD - 06/27/2024 3:14 PM CABLE PULLER Balbir Carrillo MD 06/27/2024 3:17 PM Procedure Note Anesthesia: Lidocaine 2% and Kar-Synephrine 1/2% Endoscopy Type: Flexible Twnjg-Phfnajxskbehwz-Rpnayzjtghhf Procedure Details: Informed consent was obtained. The [...] 0.30 - 1.30 mg/dL 12/04/2023 10:[address] [facility] eGFR 78(L) >=90 mL/min/1.7 3 m2 12/04/2023 10:[address] [facility] Blood BLOOD SPECIMEN / Unknown 12/04/2023 10:07 AM CDT 12/04/2023 10:13 AM CDT Major Shearer MD LAB - POINT OF CARE ORDERABLES Performing Organization Address City/State/[facility] Co de Phone Number [facility] [address] [place] [phone], [facility] [phone] * (ABNORMAL) HEMOGLOBIN A1C (06/11/2022 11:38 PM CABLE PULLER) Hemoglobin A1c 9.1(H) <=5.6 % 06/12/2022 7:[address] [facility] Estimated Average Glucose 214 mg/dL 06/12/2022 7:[address] [facility] Comment: HbA1c Interpretation: Normal : < 5.7% Pre-diabetes: 5.7-6.4% Diabetes: Equal to or greater than 6.5% Test results diagnostic of diabetes should be repeated for confirmation. Treatment target values recommended by ADA and other clinical organizations should be used to evaluate metabolic control in patients. Reference: [place] [employer], Standards of Care in Diabetes -2020 In patients 70 years and older consider HbA1c target range of 7.0-7.5% (Reference: Jose Bustillo et al. JAMDA. 2012) The [place] assay for the measurement of HbA1c is a National Glycohemoglobin Standardization Program (NGSP) certified method. Blood BLOOD SPECIMEN / Unknown Venipuncture / Unknown 06/11/2022 11:38 PM CABLE PULLER 06/11/2022 11:54 PM CABLE PULLER Josette Nathan MD LAB - CHEMISTRY LOVE ADEN [facility] Organization Address City/State/ZIP Co de Phone Number [facility] [address] [place] [address], [facility] [phone] from Last 3 Months or Most Recently Relevant to Health Maintenance Advance Directives * Full Code (Latest Code Status on File) Date Activated Date Inactivated Comments 06/11/2022 9:58 PM 06/25/2022 7:54 PM Care Teams Neurodiagnostic Technician Relationship Specialty Start Date End Date Mariana Khan MD [address] [facility] [address] [place] [address] PCP - General Family Medicine 04/04/22
--- OUTSIDE RECORDS SUMMARY | 2024-09-25 00:35 | XMS_ITS | Patient Health Summary ---
Author Organization [facility] Address [address] [place] [address] Care Team Providers Care Phototypesetting Equipment Monitor Name Role Phone Mariana Khan MD Primary Care Provider + Note from [facility],non-owned Affiliates and Associated Physician Practices is amultiple site organization consisting of ambulatory clinics and hospital sitesin [place], [place], [place] and [place]. This disclosure is being madepursuant to the Care Everywhere program and may not contain all information available regarding this patient. Last updated 18.[facility] Allergies * Diclofenac Epolamine(Itching) * Sulfa Drugs(Itching) Medications * Be aware that medications may not be up to date on this document. Alwaysverify current medications with the patient. * levothyroxine (Synthroid) 75 MCG tablet(Started 03/20/2022) Take 1 (one) tablet by mouth once daily * escitalopram (Lexapro) 10 MG tablet(Started 11/20/2022) Take 1 (one) tablet by mouth once daily * acetaminophen (Tylenol) 500 MG tablet Take 2 (two) tablets by mouth nightly as needed for Fever or Pain Maximum allowable Acetaminophen amount = 4 Grams (4000 mg) / 24 hours. * chlorpheniramine (EQ Chlortabs) 4 MG tablet Take 1 (one) tablet by mouth every 6 hours as needed for Nasal Congestion or Allergies * loperamide (Imodium) 2 MG capsule Take 1 (one) capsule by mouth once Takes one every 3 days * rosuvastatin (Crestor) 5 MG tablet(Started 04/09/2023) Take 1 (one) tablet by mouth once daily * Mouthwashes (BIOTENE DRY MOUTH MT) by Mouth/Throat route as needed * SALINE NASAL SPRAY NA Pfeifer 1 spray into the nose as needed * benzocaine-menthol (Chloraseptic) 6-10 MG lozenge Take by mouth as needed for Sore Throat * famotidine (Pepcid) 20 MG tablet(Started 03/18/2024) Take 1 (one) tablet by mouth once daily Active Problems Problem Noted Date Diagnosed Date [...] Date Resolved Date Sinusitis 07/02/2022 07/30/2022 Immunizations * Covid Moderna primary monovalent 12+ yr 0.5mL(Given 10/11/2020, 08/31/2020) * INFLUENZA VACCINE(Given 05/01/2022, 05/05/2018) * INFLUENZA VACCINE, HIGH-DOSE, QUADR. (FLUZONE HIGH-DOSE QUADRIVALENT; 65Y+), 0.7 ML (HD-IIV4)(Given 05/10/2023, 05/01/2022, 05/10/2021, 04/06/2020) * INFLUENZA VACCINE, QUADR. (FLUZONE; FLULAVAL; FLUARIX; AFLURIA QUADRIVALENT; 6MO+), 0.5 ML (IIV4)(Given 05/06/2019) * MODERNA SARS-COV-2 COVID-19 VACCINE 0.25ML(Given 02/12/2022) * PNEUMOCOCCAL PCV20 CONJ VAC IM(Given 05/20/2012) * TDAP (7yrs+)(Given 09/17/2002) * ZOSTER VACCINE, LIVE(Given 02/10/2009) * Zoster Hzv Vacc Recombinant Inj Im(Given 12/27/2017, 10/28/2017) Social History Tobacco Use Types Packs/Day Years [...] Comments Blood Pressure 124/78 06/30/2024 11:10 AM BURN TABLE OPERATOR Pulse 64 06/30/2024 11:10 AM BURN TABLE OPERATOR Temperature 36.6 C (97.9 F) 06/30/2024 11:10 AM BURN TABLE OPERATOR Respiratory Rate 20 06/30/2024 11:10 AM BURN TABLE OPERATOR Oxygen Saturation 98% 06/30/2024 11:10 AM BURN TABLE OPERATOR Inhaled Oxygen Concentration - - Weight 56.9 kg (125 lb 6.4 oz) 06/30/2024 11:10 AM BURN TABLE OPERATOR Height 157.5 cm (5' 2 ) 06/26/2024 1:36 PM BURN TABLE OPERATOR Body Mass Index 22.94 06/26/2024 1:36 PM BURN TABLE OPERATOR Medical Devices Implanted Type Area Orthotics Technician Device Identifier Shelf Expiration Date Model / Serial / Lot Port Implinfn Powerport Clrvu Argd Aviva Implanted:Qty: 1 on 05/11/2022 at [facility] Right: Chest Wall [employer] 06/20/2023 [id number] / / [id number] Procedures * T4 FREE(Performed 06/30/2024) Performed for Cancer of base of tongue (CMS/HCC), Hypothyroidism, unspecified type * CBC W AUTO DIFFERENTIAL(Performed 06/30/2024) Performed for Cancer of base of tongue (HCC) * TSH REFLEX FREE T4(Performed 06/30/2024) Performed for Cancer of base of tongue (CMS/HCC), Hypothyroidism, unspecified type * WV LARYNGOSCOPY,FLEX FIBER,DIAGNOSTIC(Performed 06/27/2024) Performed for Cancer of base of tongue (CMS/HCC) * IR MAXIMUS CATH REMOVAL(Performed 01/14/2024) Performed for Chemotherapy follow-up examination * GLUCOSE - POINT OF CARE(Performed 01/14/2024) * WV LARYNGOSCOPY,FLEX FIBER,DIAGNOSTIC(Performed 12/13/2023) Performed for Cancer of base of tongue (HCC), Oropharyngeal dysphagia, 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) * CT NECK SOFT TISSUE W CONT(Performed 12/04/2023) Performed for Cancer of base of tongue (HCC) * CT CHEST W CONTRAST(Performed 12/04/2023) Performed for Cancer of base of tongue (HCC) * CREATININE - POCT INTERFACED(Performed 12/04/2023) * WV LARYNGOSCOPY,FLEX FIBER,DIAGNOSTIC(Performed 07/03/2023) Performed for Cancer of base of tongue (CMS/HCC) * COMPREHENSIVE METABOLIC PANEL(Performed 06/27/2023) Performed for Cancer of base of tongue (HCC) * CBC W AUTO DIFFERENTIAL(Performed 06/27/2023) Performed for Cancer of base of tongue (HCC) * CT NECK SOFT TISSUE W CONT(Performed 06/03/2023) Performed for Cancer of base of tongue (HCC) * CREATININE - POCT INTERFACED(Performed 06/03/2023) * TSH REFLEX FREE T4(Performed 03/21/2023) Performed for Cancer of base of tongue (HCC) * COMPREHENSIVE METABOLIC PANEL(Performed 03/21/2023) Performed for Cancer of base of tongue (HCC) * CBC W AUTO DIFFERENTIAL(Performed 03/21/2023) Performed for Cancer of base of tongue (HCC) * WV DESTROY PREMALIG LESION, 1ST LESION(Performed 02/07/2023) Performed for Actinic keratosis * WV LARYNGOSCOPY,FLEX FIBER,DIAGNOSTIC(Performed 12/28/2022) Performed for Cancer of base of tongue (HCC) * COMPREHENSIVE METABOLIC PANEL(Performed 12/27/2022) Performed for Cancer of base of tongue (HCC) * CBC W AUTO DIFFERENTIAL(Performed 12/27/2022) Performed for Cancer of base of tongue (HCC) * PET CT SKULL TO MID THIGH(Performed 12/20/2022) Performed for Cancer of base of tongue (HCC) * GLUCOSE SCREEN - POCT (IP) SLH(Performed 12/20/2022) * FL SWALLOWING FUNCTION STUDY(Performed 12/03/2022) Performed for 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) * WV LARYNGOSCOPY,FLEX FIBER,DIAGNOSTIC(Performed 11/21/2022) Performed for 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) * PATHOLOGY TISSUE(Performed 11/13/2022) Performed for Dysphagia, unspecified type * WV ED EGD FLEX TRANSORAL DX(Performed 11/13/2022) Performed for Dysphagia, unspecified type * EGD(Performed 11/13/2022) * GLUCOSE - POINT OF CARE(Performed 11/13/2022) * IR G D J COLON TUBE REMOVAL(Performed 10/10/2022) Performed for Gastrointestinal tube present (HCC) * GLUCOSE - POINT OF CARE(Performed 10/10/2022) * PET CT WHOLE BODY(Performed 09/25/2022) Performed for Cancer of base of tongue (HCC) * COMPREHENSIVE METABOLIC PANEL(Performed 09/25/2022) Performed for Cancer of base of tongue (HCC) * CBC W AUTO DIFFERENTIAL(Performed 09/25/2022) Performed for Cancer of base of tongue (HCC) * GLUCOSE SCREEN - POCT (IP) SLH(Performed 09/25/2022) * COMPREHENSIVE METABOLIC PANEL(Performed 07/30/2022) Performed for Cancer of base of tongue (HCC) * CBC W AUTO DIFFERENTIAL(Performed 07/30/2022) Performed for Cancer of base of tongue (HCC) * COMPREHENSIVE METABOLIC PANEL(Performed 07/02/2022) Performed for Cancer of base of tongue (HCC) * CBC W AUTO DIFFERENTIAL(Performed 07/02/2022) Performed for Cancer of base of tongue (HCC) * GLUCOSE - POINT OF CARE(Performed 06/25/2022) * RAD ONC ARIA SESSION SUMMARY(Performed 06/25/2022) * GLUCOSE - POINT OF CARE(Performed 06/25/2022) * CBC W/O DIFFERENTIAL(Performed 06/25/2022) * MAGNESIUM BLOOD(Performed 06/25/2022) * RENAL FUNCTION PANEL(Performed 06/25/2022) * GLUCOSE - POINT OF CARE(Performed 06/24/2022) * GLUCOSE - POINT OF CARE(Performed 06/24/2022) * GLUCOSE - POINT OF CARE(Performed 06/24/2022) * GLUCOSE - POINT OF CARE(Performed 06/24/2022) * CBC W/O DIFFERENTIAL(Performed 06/24/2022) * MAGNESIUM BLOOD(Performed 06/24/2022) * RENAL FUNCTION PANEL(Performed 06/24/2022) * GLUCOSE - POINT OF CARE(Performed 06/23/2022) * GLUCOSE - POINT OF CARE(Performed 06/23/2022) * GLUCOSE - POINT OF CARE(Performed 06/23/2022) * GLUCOSE - POINT OF CARE(Performed 06/23/2022) * CBC W/O DIFFERENTIAL(Performed 06/23/2022) * MAGNESIUM BLOOD(Performed 06/23/2022) * RENAL FUNCTION PANEL(Performed 06/23/2022) * GLUCOSE - POINT OF CARE(Performed 06/22/2022) * GLUCOSE - POINT OF CARE(Performed 06/22/2022) * GLUCOSE - POINT OF CARE(Performed 06/22/2022) * GLUCOSE - POINT OF CARE(Performed 06/22/2022) * RAD ONC ARIA SESSION SUMMARY(Performed 06/22/2022) * CBC W/O DIFFERENTIAL(Performed 06/22/2022) * MAGNESIUM BLOOD(Performed 06/22/2022) * RENAL FUNCTION PANEL(Performed 06/22/2022) * GLUCOSE - POINT OF CARE(Performed 06/21/2022) * GLUCOSE - POINT OF CARE(Performed 06/21/2022) * GLUCOSE - POINT OF CARE(Performed 06/21/2022) * RAD ONC ARIA SESSION SUMMARY(Performed 06/21/2022) * GLUCOSE - POINT OF CARE(Performed 06/21/2022) * CBC W AUTO DIFFERENTIAL(Performed 06/21/2022) * MAGNESIUM BLOOD(Performed 06/21/2022) * RENAL FUNCTION PANEL(Performed 06/21/2022) * GLUCOSE - POINT OF CARE(Performed 06/20/2022) * GLUCOSE - POINT OF CARE(Performed 06/20/2022) * GLUCOSE - POINT OF CARE(Performed 06/20/2022) * RAD ONC ARIA SESSION SUMMARY(Performed 06/20/2022) * MAGNESIUM BLOOD(Performed 06/20/2022) * RENAL FUNCTION PANEL(Performed 06/20/2022) * GLUCOSE - POINT OF CARE(Performed 06/19/2022) * GLUCOSE - POINT OF CARE(Performed 06/19/2022) * GLUCOSE - POINT OF CARE(Performed 06/19/2022) * GLUCOSE - POINT OF CARE(Performed 06/19/2022) * RAD ONC ARIA SESSION SUMMARY(Performed 06/19/2022) * VITAMIN B12(Performed 06/19/2022) * MAGNESIUM BLOOD(Performed 06/19/2022) * RENAL FUNCTION PANEL(Performed 06/19/2022) * GLUCOSE - POINT OF CARE(Performed 06/18/2022) * GLUCOSE - POINT OF CARE(Performed 06/18/2022) * GLUCOSE - POINT OF CARE(Performed 06/18/2022) * IR PERC G TUBE PLACEMENT(Performed 06/18/2022) Performed for Cancer of base of tongue (HCC), Oropharyngeal dysphagia * PT-INR SLH(Performed 06/18/2022) * CBC W/O DIFFERENTIAL(Performed 06/18/2022) * GLUCOSE - POINT OF CARE(Performed 06/18/2022) * MAGNESIUM BLOOD(Performed 06/18/2022) * RENAL FUNCTION PANEL(Performed 06/18/2022) * GLUCOSE - POINT OF CARE(Performed 06/17/2022) * GLUCOSE - POINT OF CARE(Performed 06/17/2022) * GLUCOSE - POINT OF CARE(Performed 06/17/2022) * GLUCOSE - POINT OF CARE(Performed 06/17/2022) * MAGNESIUM BLOOD(Performed 06/17/2022) * RENAL FUNCTION PANEL(Performed 06/17/2022) * GLUCOSE - POINT OF CARE(Performed 06/17/2022) * GLUCOSE - POINT OF CARE(Performed 06/16/2022) * GLUCOSE - POINT OF CARE(Performed 06/16/2022) * GLUCOSE - POINT OF CARE(Performed 06/16/2022) * GLUCOSE - POINT OF CARE(Performed 06/16/2022) * DIFFERENTIAL MANUAL(Performed 06/16/2022) * CBC W AUTO DIFFERENTIAL(Performed 06/16/2022) * MAGNESIUM BLOOD(Performed 06/16/2022) * RENAL FUNCTION PANEL(Performed 06/16/2022) * GLUCOSE - POINT OF CARE(Performed 06/15/2022) * GLUCOSE - POINT OF CARE(Performed 06/15/2022) * GLUCOSE - POINT OF CARE(Performed 06/15/2022) * GLUCOSE - POINT OF CARE(Performed 06/15/2022) * CBC W/O DIFFERENTIAL(Performed 06/15/2022) * MAGNESIUM BLOOD(Performed 06/15/2022) * RENAL FUNCTION PANEL(Performed 06/15/2022) * GLUCOSE - POINT OF CARE(Performed 06/14/2022) * GLUCOSE - POINT OF CARE(Performed 06/14/2022) * GLUCOSE - POINT OF CARE(Performed 06/14/2022) * GLUCOSE - POINT OF CARE(Performed 06/14/2022) * CBC W/O DIFFERENTIAL(Performed 06/14/2022) * MAGNESIUM BLOOD(Performed 06/14/2022) * RENAL FUNCTION PANEL(Performed 06/14/2022) * GLUCOSE - POINT OF CARE(Performed 06/13/2022) * GLUCOSE - POINT OF CARE(Performed 06/13/2022) * GLUCOSE - POINT OF CARE(Performed 06/13/2022) * GLUCOSE - POINT OF CARE(Performed 06/13/2022) * CBC W/O DIFFERENTIAL(Performed 06/13/2022) * MAGNESIUM BLOOD(Performed 06/13/2022) * RENAL FUNCTION PANEL(Performed 06/13/2022) * GLUCOSE - POINT OF CARE(Performed 06/12/2022) * GLUCOSE - POINT OF CARE(Performed 06/12/2022) * GLUCOSE - POINT OF CARE(Performed 06/12/2022) * URINE MICROSCOPIC ONLY REFLEX TO CULTURE(Performed 06/12/2022) * URINALYSIS REFLEX MICROSCOPIC REFLEX CULTURE(Performed 06/12/2022) * RENAL FUNCTION PANEL(Performed 06/12/2022) * HYDROXYBUTYRATE BETA(Performed 06/12/2022) * GLUCOSE - POINT OF CARE(Performed 06/12/2022) * DIFFERENTIAL MANUAL(Performed 06/11/2022) * HEMOGLOBIN A1C(Performed 06/11/2022) * FERRITIN(Performed 06/11/2022) * IRON + TRANSFERRIN PANEL(Performed 06/11/2022) * VITAMIN B12(Performed 06/11/2022) * FOLATE(Performed 06/11/2022) * C-REACTIVE PROTEIN(Performed 06/11/2022) * CBC W AUTO DIFFERENTIAL(Performed 06/11/2022) * TSH REFLEX FREE T4(Performed 06/11/2022) * PHOSPHORUS BLOOD(Performed 06/11/2022) * MAGNESIUM BLOOD(Performed 06/11/2022) * LACTIC ACID BLOOD(Performed 06/11/2022) * COMPREHENSIVE METABOLIC PANEL(Performed 06/11/2022) * DIFFERENTIAL MANUAL(Performed 06/11/2022) Performed for Cancer of base of tongue (HCC) * MAGNESIUM BLOOD(Performed 06/11/2022) Performed for Cancer of base of tongue (HCC) * COMPREHENSIVE METABOLIC PANEL(Performed 06/11/2022) Performed for Cancer of base of tongue (HCC) * CBC W AUTO DIFFERENTIAL(Performed 06/11/2022) Performed for Cancer of base of tongue (HCC) * DIFFERENTIAL MANUAL(Performed 06/08/2022) * PHOSPHORUS BLOOD(Performed 06/08/2022) * MAGNESIUM BLOOD(Performed 06/08/2022) * COMPREHENSIVE METABOLIC PANEL(Performed 06/08/2022) * CBC W AUTO DIFFERENTIAL(Performed 06/08/2022) * RAD ONC ARIA SESSION SUMMARY(Performed 06/08/2022) * RAD ONC ARIA SESSION SUMMARY(Performed 06/07/2022) * RAD ONC ARIA SESSION SUMMARY(Performed 06/06/2022) * RAD ONC ARIA SESSION SUMMARY(Performed 06/05/2022) * MAGNESIUM BLOOD(Performed 06/04/2022) Performed for Cancer of base of tongue (HCC) * COMPREHENSIVE METABOLIC PANEL(Performed 06/04/2022) Performed for Cancer of base of tongue (HCC) * CBC W AUTO DIFFERENTIAL(Performed 06/04/2022) Performed for Cancer of base of tongue (HCC) * RAD ONC ARIA SESSION SUMMARY(Performed 06/04/2022) * COMPREHENSIVE METABOLIC PANEL(Performed 06/01/2022) * CBC W AUTO DIFFERENTIAL(Performed 06/01/2022) * RAD ONC ARIA SESSION SUMMARY(Performed 06/01/2022) * RAD ONC ARIA SESSION SUMMARY(Performed 05/31/2022) * RAD ONC ARIA SESSION SUMMARY(Performed 2022) * RAD ONC ARIA SESSION SUMMARY(Performed 05/29/2022) * MAGNESIUM BLOOD(Performed 05/28/2022) Performed for Cancer of base of tongue (HCC) * COMPREHENSIVE METABOLIC PANEL(Performed 05/28/2022) Performed for Cancer of base of tongue (HCC) * CBC W AUTO DIFFERENTIAL(Performed 05/28/2022) Performed for Cancer of base of tongue (HCC) * RAD ONC ARIA SESSION SUMMARY(Performed 05/28/2022) * RAD ONC ARIA SESSION SUMMARY(Performed 05/25/2022) * HEPATITIS B SURFACE ANTIGEN W RFLX CONFIRMATION(Performed 05/24/2022) Performed for Cancer of base of tongue (HCC), Encounter for screening for other viral diseases * HEPATITIS B CORE ANTIBODY TOTAL(Performed 05/24/2022) Performed for Cancer of base of tongue (HCC), Encounter for screening for other viral diseases * HEPATITIS B SURFACE ANTIBODY(Performed 05/24/2022) Performed for Cancer of base of tongue (HCC), Encounter for screening for other viral diseases * RAD ONC ARIA SESSION SUMMARY(Performed 05/24/2022) * RAD ONC ARIA SESSION SUMMARY(Performed 05/23/2022) * RAD ONC ARIA SESSION SUMMARY(Performed 05/22/2022) * MAGNESIUM BLOOD(Performed 05/21/2022) Performed for Cancer of base of tongue (HCC) * COMPREHENSIVE METABOLIC PANEL(Performed 05/21/2022) Performed for Cancer of base of tongue (HCC) * CBC W AUTO DIFFERENTIAL(Performed 05/21/2022) Performed for Cancer of base of tongue (HCC) * RAD ONC ARIA SESSION SUMMARY(Performed 05/21/2022) * RAD ONC ARIA SESSION SUMMARY(Performed 05/18/2022) * RAD ONC ARIA SESSION SUMMARY(Performed 05/17/2022) * RAD ONC ARIA SESSION SUMMARY(Performed 05/16/2022) * RAD ONC ARIA SESSION SUMMARY(Performed 05/15/2022) * MAGNESIUM BLOOD(Performed 05/14/2022) Performed for Cancer of base of tongue (HCC) * COMPREHENSIVE METABOLIC PANEL(Performed 05/14/2022) Performed for Cancer of base of tongue (HCC) * CBC W AUTO DIFFERENTIAL(Performed 05/14/2022) Performed for Cancer of base of tongue (HCC) * RAD ONC ARIA SESSION SUMMARY(Performed 05/14/2022) * IR MAXIMUS CATH INSERT(Performed 05/11/2022) Performed for Cancer of base of tongue (HCC) * PT-INR SLH(Performed 05/11/2022) Performed for Cancer of base of tongue (HCC) * RAD ONC ARIA SESSION SUMMARY(Performed 05/11/2022) * RAD ONC ARIA SESSION SUMMARY(Performed 05/10/2022) * RAD ONC ARIA SESSION SUMMARY(Performed 05/09/2022) * RAD ONC ARIA SESSION SUMMARY(Performed 05/08/2022) * URINALYSIS REFLEX TO MICROSCOPIC NO CULTURE(Performed 05/07/2022) Performed for Cancer of base of tongue (HCC), Acute cystitis without hematuria * CULTURE URINE(Performed 05/07/2022) Performed for Cancer of base of tongue (HCC), Acute cystitis without hematuria * MAGNESIUM BLOOD(Performed 05/07/2022) Performed for Cancer of base of tongue (HCC) * COMPREHENSIVE METABOLIC PANEL(Performed 05/07/2022) Performed for Cancer of base of tongue (HCC) * CBC W AUTO DIFFERENTIAL(Performed 05/07/2022) Performed for Cancer of base of tongue (HCC) * RAD ONC ARIA SESSION SUMMARY(Performed 05/07/2022) * RAD ONC ARIA SESSION SUMMARY(Performed 05/04/2022) * RAD ONC ARIA SESSION SUMMARY(Performed 05/03/2022) * RAD ONC ARIA SESSION SUMMARY(Performed 05/02/2022) * RAD ONC ARIA SESSION SUMMARY(Performed 05/01/2022) * MAGNESIUM BLOOD(Performed 04/30/2022) Performed for Cancer of base of tongue (HCC) * COMPREHENSIVE METABOLIC PANEL(Performed 04/30/2022) Performed for Cancer of base of tongue (HCC) * CBC W AUTO DIFFERENTIAL(Performed 04/30/2022) Performed for Cancer of base of tongue (HCC) * RAD ONC ARIA SESSION SUMMARY(Performed 04/30/2022) * PET CT WHOLE BODY(Performed 04/26/2022) Performed for Cancer of base of tongue (HCC) * GLUCOSE SCREEN - POCT (IP) SLH(Performed 04/26/2022) * COMPREHENSIVE METABOLIC PANEL(Performed 04/16/2022) Performed for Cancer of base of tongue (HCC) * CBC W AUTO DIFFERENTIAL(Performed 04/16/2022) Performed for Cancer of base of tongue (HCC) * WV LARYNGOSCOPY,FLEX FIBER,DIAGNOSTIC(Performed 04/04/2022) Performed for Cough * CT CHEST W CONTRAST(Performed 04/04/2022) Performed for 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 Pathologist [facility] [place] TSH 0.257(L) 0.350 - 4.940 uIU/mL 06/30/2024 11:55 AM [facility] Blood BLOOD SPECIMEN / Unknown Lab Venipuncture / Unknown 06/30/2024 10:59 AM BURN TABLE OPERATOR 06/30/2024 11:08 AM BURN TABLE OPERATOR Major Shearer MD LAB - CHEMISTRY ORD ERABLES [facility] [address] [place] [id number], [facility] [phone] * (ABNORMAL) CBC W/ DIFFERENTIAL (06/30/2024 10:59 AM BURN TABLE OPERATOR) Only the most recent of20 resultswithin the time period is included. Pathologist [facility] [place] WBC 5.4 4.0 - 10.7 x10E9/L 06/30/2024 11:12 AM [facility] RBC Count 4.21 3.90 - 5.20 x10E12/L 06/30/2024 11:12 AM [facility] Hemoglobin 13.4 11.9 - 15.8 g/dL 06/30/2024 11:12 AM [facility] Hematocrit 41.9 34.8 - 46.1 % 06/30/2024 11:12 AM [facility] MCV 99.5(H) 80.0 - 98.0 fL 06/30/2024 11:12 AM [facility] MCH 31.8 26.7 - 33.6 pg 06/30/2024 11:12 AM [facility] MCHC 32.0 31.7 - 36.3 g/dL 06/30/2024 11:12 AM [facility] RDW-CV 13.6 11.3 - 14.8 % 06/30/2024 11:12 AM [facility] Platelet Count 175 150 - 420 x10E9/L 06/30/2024 11:12 AM [facility] MPV 10.2 7.8 - 11.4 fL 06/30/2024 11:12 AM [facility] Neutrophil % 68.7 41.0 - 74.0 % 06/30/2024 11:12 AM [facility] Lymphocyte % 18.6 17.0 - 47.0 % 06/30/2024 11:12 AM [facility] Monocyte % 11.0 3.0 - 11.0 % 06/30/2024 11:12 AM [facility] Eosinophil % 0.9 0.0 - 7.0 % 06/30/2024 11:12 AM [facility] Basophil % 0.4 0.0 - 1.6 % 06/30/2024 11:12 AM [facility] Immature Granulocytes % 0.4 0.0 - 1.0 % 06/30/2024 11:12 AM [facility] Neutrophil Absolute 3.69 1.60 - 7.50 x10E9/L 06/30/2024 11:12 AM [facility] Lymphocyte Absolute 1.00 1.00 - 4.40 x10E9/L 06/30/2024 11:12 AM [facility] Monocyte Absolute 0.59 0.15 - 1.00 x10E9/L 06/30/2024 11:12 AM [facility] Eosinophil Absolute 0.05 0.00 - 0.60 x10E9/L 06/30/2024 11:12 AM [facility] Basophil Absolute 0.02 0.00 - 0.13 x10E9/L 06/30/2024 11:12 AM [facility] Blood BLOOD SPECIMEN / Unknown Lab Venipuncture / Unknown 06/30/2024 10:59 AM BURN TABLE OPERATOR 06/30/2024 11:08 AM BURN TABLE OPERATOR Nikky Sewell OPERATIONS [employer]-PRODUCT ENGINEERING MANAGER LAB - HEMATO LOGY ORDERABLES [facility] [address] [place] [address], [facility] [phone] * T4 FREE (06/30/2024 10:59 AM BURN TABLE OPERATOR) T4 Free 1.3 0.7 - 1.5 ng/dL 06/30/2024 12:28 PM BURN TABLE OPERATOR [facility] Blood BLOOD SPECIMEN / Unknown Lab Venipuncture / Unknown 06/30/2024 10:59 AM BURN TABLE OPERATOR 06/30/2024 11:08 AM BURN TABLE OPERATOR Major Shearer MD LAB - CHEMISTRY ORD ERABLES Performing Organization Address City/[facility]/ZIP Co de Phone Number [facility] [address] [place] [id number], [facility] [phone] * [place] LARYNGOSCOPY,FLEX FIBER,DIAGNOSTIC (06/27/2024 3:14 PM BURN TABLE OPERATOR) Narrative Balbir Carrillo MD - 06/27/2024 3:14 PM BURN TABLE OPERATOR Balbir Carrillo MD 06/27/2024 3:17 PM Procedure Note Anesthesia: Lidocaine 2% and Kar-Synephrine 1/2% Endoscopy Type: Flexible Hsvjr-Zglovqjndxufcz-Fwcwprrzecgw Procedure Details: Informed consent was obtained. The [...] Carrillo MD PROCEDURE/MINOR SURG ICAL ORDERABLES * IR MAXIMUS CATH REMOVAL (01/14/2024 1:25 PM CDT) Anatomical Region Laterality Modality X-Ray Angiograph y 01/14/2024 1:21 PM CDT Impressions 01/14/2024 5:29 PM CDT Impression: Successful removal of a right internal jugular approach single lumen 8 Austrian chest port under fluoroscopic guidance. Note: Keep the dressing clean and dry for 5 days. Glynn Lacy PA, was present and performed/supervised the entire procedure. > Dictated by Joey Cervantes (Animal Tech) 01/14/2024 1:21 PM Jaquan Lacy MD have personally reviewed and interpreted this examination/study. 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 Fluoroscopic time: 0.1 minutes Procedure details: The procedure, risks, and possible complications were explained to the patient in detail, and informed consent was obtained. The patient was placed supine on the angiography table. The right neck and upper chest were prepped and draped in the usual sterile manner. A wire stripping machine operator radiograph of the chest was obtained, which showed a right chest port with tip of catheter in the right atrium. Following the local administration of lidocaine, a skin incision was made over the previous incisional scar. Using blunt and sharp dissection techniques, the chest port was removed along with the catheter in its entire length under fluoroscopic guidance. The pocket was irrigated with saline, and the incision was then closed with 3-0 and 4-0 vicryl sutures in layers. Sterile dressing was applied. Final chest radiograph was obtained, which did not show any residual catheter fragment. The patient tolerated the procedure well and was transferred to the holding area in stable condition. There were no immediate complications associated with the procedure. 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 Fluoroscopic time: 0.1 minutes Procedure details: The procedure, risks, and possible complications were explained to the patient in detail, and informed consent was obtained. The patient was placed supine on the angiography table. The right neck and upper chestwere prepped and draped in the usual sterile manner. A wire stripping machine operator radiograph ofthe chest was obtained, which showed a right chest port with tip of catheterin the right atrium. Following the local administration of lidocaine, a skin incision wasmade over the previous incisional scar. Using blunt and sharp dissection techniques, the chest port was removed along with the catheter in its entire length under fluoroscopic guidance. The pocket was irrigated with saline, and the incision was then closed with 3-0 and 4-0 vicryl suturesin layers. Sterile dressing was applied. Final chest radiograph wasobtained, which did not show any residual catheter fragment. The patient tolerated the procedure well [facility] There were no immediate complicationsassociated with the procedure. Impression: Successful removal of a right internal jugular approachsingle lumen 8 Austrian chest port under fluoroscopic guidance. Note: Keep the dressing clean and dry for 5 days. Glynn Lacy PA, was present and performed/supervised the entire procedure. > Dictated by Joey Cervantes (Animal Tech) 01/14/2024 1:21 PM Jaquan Lacy MD have personally reviewed and interpreted this examination/study. > Interpreting Provider: Jaquan Paz MD on 01/14/2024 5:29 PM Claire Stewart MD IR ORDERABLES * GLUCOSE - POINT OF CARE (01/14/2024 11:50 AM CDT) Only the most recent of57 resultswithin the time period is included. Glucose WB/POC 85 70 - 115 mg/dL 01/14/2024 11:51 AM CDT [facility] Specimen Type Cap Fingerstick 2023 11:51 AM CDT [facility] Blood BLOOD SPECIMEN / Unknown 01/14/2024 11:50 AM CDT 01/14/2024 11:51 AM CDT Claire Stewart MD LAB - POINT OF C ARE ORDERABLES [address] [address], [facility] [phone] * [place] LARYNGOSCOPY,FLEX FIBER,DIAGNOSTIC (12/13/2023 2:44 PM CDT) Narrative Abdirashid Dougherty MD - 12/13/2023 2:44 PM CDT Abdirashid Dougherty MD 12/13/2023 4:08 PM Procedure Note Anesthesia: Lidocaine 2% and Kar-Synephrine 1/2% Endoscopy Type: Flexible Jhhrd-Xhmcaucjavzsnj-Yrvrxuuyaewv Procedure Details: Informed consent was obtained. The patient was placed in the sitting position. After topical anesthesia and decongestion, the 4 mm laryngoscope was passed. The nasal cavities, nasopharynx, oropharynx, hypopharynx, and larynx were all examined. Vocal cords were examined during respiration and phonation. 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 Complications: None Balbir Carrillo MD PROCEDURE/MINOR SURG ICAL ORDERABLES * CT NECK SOFT TISSUE W CONT (12/04/2023 10:36 AM CDT) Only the most recent of3 resultswithin the time period is included. Anatomical Region Laterality Modality Head Computed Tomogra phy 12/04/2023 11:1 6 AM CDT Impressions 12/04/2023 11:23 AM CDT IMPRESSION: 1.No evidence of visible residual or recurrent disease. No cervical lymphadenopathy. Continued follow-up is recommended. 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 Contrast: IOPAMIDOL 76 % IV SOLN:50 mL COMPARISON: 06/03/2023. FINDINGS: The oral cavity is partially obscured by beam hardening artifacts from dental restorations. Within this limitation, there is no definite enhancing mass in the base of the tongue or the epiglottis. There is persistent diffuse atrophy and enhancement of the submandibular glands bilaterally. There is mild mucosal thickening in the upper airway and the epiglottis and mild fat stranding in the deep fascia and the retropharynx. These findings likely represent post radiation changes. Multiple, small subcentimeter lymph nodes are noted in both sides of the neck with no evidence of cervical lymphadenopathy. The muscles of the neck appear normal. There is atherosclerotic disease involving the carotid bifurcations and siphons. The internal jugular veins appear normal. Fascial planes are preserved and the deep spaces of the neck appear normal. The nasopharynx, oropharynx, hypopharynx and larynx otherwise appear normal. The visualized airway is patent. The visualized portions of the posterior fossa and brain appear normal. There is cervical degenerative disc and joint disease. No evidence of suspicious lytic or sclerotic lesions in the visualized cervical spine and pelvis. Postoperative changes of bilateral cataract surgery. The sinuses appear normal. The thyroid gland is normal. The visible lung apices are clear. Partially imaged right-sided port catheter. 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 Contrast: IOPAMIDOL 76 % IV SOLN:50 mL COMPARISON: 06/03/2023. FINDINGS: The oral cavity is partially obscured by beam hardening artifacts from dental restorations. Within this limitation, there is no definite enhancing mass in the baseof the tongue or the epiglottis. There is persistent diffuse atrophy and enhancement of the submandibular glands bilaterally. There is mildmucosal thickening in the upper airway and the epiglottis and mild fat strandingin the deep fascia and the retropharynx. These findings likely representpost radiation changes. Multiple, small subcentimeter lymph nodes are noted in both sides of the neck with no evidence of cervical lymphadenopathy. The muscles of theneck appear normal. There is atherosclerotic disease involving the carotid bifurcations and siphons. The internal jugular veins appear normal.Fascial planes are preserved and the deep spaces of the neck appear normal. The nasopharynx, oropharynx, hypopharynx and larynx otherwise appear normal. The visualized airway is patent. The visualized portions of the posterior fossa and brain appear normal. There is cervical degenerative disc and joint disease. No evidence of suspicious lytic or sclerotic lesions in the visualized cervical spineand pelvis. Postoperative changes of bilateral cataract surgery. The sinuses appear normal. The thyroid gland is normal. The visible lung apices are clear. Partially imaged right-sided port catheter. IMPRESSION: 1.No evidence of visible residual or recurrent disease. No cervical lymphadenopathy. Continued follow-up is recommended. > Interpreting Provider: Yasmin Snowden MD on 12/04/2023 11:23 AM Major Shearer MD CT ORDERABLES * CT CHEST W CONTRAST (12/04/2023 10:20 AM CDT) Only the most recent of2 resultswithin the time period is included. Anatomical Region Laterality Modality Chest Computed Tomogra phy 12/04/2023 1:26 PM CDT Impressions 12/04/2023 5:15 PM CDT Impression: 1.No acute process or CT evidence of metastatic disease identified in the chest. > Dictated by Barby Lincoln Dr, MD (vice president fixed income). Jo Lacy MD have personally reviewed and interpreted this examination/study. 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 TECHNIQUE: CT of the chest was performed following the uneventful administration of 100 mL of Isovue 370 intravenous contrast according to standard protocol. Findings: Right chest port with catheter tip located at the superior cavoatrial junction. Lower Neck and Axillae: Normal. Lungs: No pulmonary parenchymal or airway process is present. Linear atelectatic changes are noted in the right middle lobe and lingula, unchanged. No suspicious pulmonary nodules are identified. No pleural fluid or pneumothorax is present. Heart and Pericardium: The cardiac chambers are normal in size. No pericardial fluid or thickening is present. Calcification of the coronary arteries and aortic valve. Mediastinum and Chinyere: No enlarged lymph nodes are present. Thoracic Vasculature: The aorta and its branch vessels are atherosclerotic. Bones and Chest Wall: Bone windows demonstrate no suspicious lytic or blastic lesions. The visible osseous structures are intact. Mild degenerative disc disease of the thoracic spine. Endplate changes at the superior endplate of T9-T10 Schmorl's nodes. Upper Abdomen: The gallbladder is contracted. An air-fluid level is noted in the retroperitoneum in the region of the duodenum (image 101, series 3 and 111, series 3) representing duodenal diverticula. 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 TECHNIQUE: CT of the chest was performed following the uneventful administration of 100 mL of Isovue 370 intravenous contrast according to standard protocol. Findings: Right chest port with catheter tip located at the superior cavoatrial junction. Lower Neck and Axillae: Normal. Lungs: No pulmonary parenchymal or airway process is present. Linearatelectatic changes are noted in the right middle lobe and lingula, unchanged. No suspicious pulmonary nodules are identified. No pleural fluid or pneumothorax is present. Heart and Pericardium: The cardiac chambers are normal in size. No pericardial fluid orthickening is present. Calcification of the coronary arteries and aortic valve. Mediastinum and Chinyere: No enlarged lymph nodes are present. Thoracic Vasculature: The aorta and its branch vessels are atherosclerotic. Bones and Chest Wall: Bone windows demonstrate no suspicious lytic or blastic lesions. The visible osseous structures are intact. Mild degenerative disc disease of the thoracic spine. Endplate changes at the superior endplate of T9-T10 Schmorl's nodes. Upper Abdomen: The gallbladder is contracted. An air-fluid level is noted in the retroperitoneum in the region of the duodenum (image 101, series 3 [id number], series 3) representing duodenal diverticula. Impression: 1.No acute process or CT evidence of metastatic disease identified inthe chest. > Dictated by Barby Lincoln Dr, MD (vice president fixed income). I, Mukul. Yaima Kelley MD have personally reviewed and interpreted this examination/study. > Interpreting Provider: Jo Kelley MD on 12/04/2023 5:15 PM Major Shearer MD CT ORDERABLES * (ABNORMAL) CREATININE - POCT INTERFACED (12/04/2023 10:07 AM CDT) Only the most recent of3 resultswithin the time period is included. Creatinine POCT 0.78 0.30 - 1.30 mg/dL 12/04/2023 10:13 AM CDT [facility] eGFR 78(L) >=90 mL/min/1.7 3 m2 12/04/2023 10:13 AM CDT [facility] Blood BLOOD SPECIMEN / Unknown 12/04/2023 10:07 AM CDT 12/04/2023 10:13 AM CDT Major Shearer MD LAB - POINT OF CARE ORDERABLES Performing Organization Address [facility]/State/ZIP Co de Phone Number [facility] [address] [place] [address], [facility] [phone] * [place] LARYNGOSCOPY,FLEX FIBER,DIAGNOSTIC (07/03/2023 12:31 PM BURN TABLE OPERATOR) Narrative Balbir Carrillo MD - 07/03/2023 12:31 PM BURN TABLE OPERATOR Balbir Carrillo MD 07/03/2023 12:34 PM Procedure Note Anesthesia: Lidocaine 2% and Kar-Synephrine 1/2% Endoscopy Type: Flexible Hnxsu-Dfmetdbhsvlmgw-Njgpmubwhqbl Procedure Details: Informed consent was obtained. The patient was placed in the sitting position. After topical anesthesia and decongestion, the 4 mm laryngoscope was passed. The nasal cavities, nasopharynx, oropharynx, hypopharynx, and larynx were all examined. Vocal cords were examined during respiration and phonation. 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 Complications: None Balbir Carrillo MD PROCEDURE/MINOR SURG ICAL ORDERABLES * (ABNORMAL) COMPREHENSIVE METABOLIC PANEL (06/27/2023 9:15 AM BURN TABLE OPERATOR) Only the most recent of17 resultswithin the time period is included. BUN 18 7 - 26 mg/dL 06/27/2023 9:50 AM [facility] Creatinine 0.71 0.56 - 0.96 mg/dL 06/27/2023 9:50 AM [facility] Sodium 137 136 - 145 mmol/L 06/27/2023 9:50 AM [facility] Potassium 4.4 3.5 - 4.5 mmol/L 06/27/2023 9:50 AM [facility] Chloride 107 98 - 107 mmol/L 06/27/2023 9:50 AM [facility] CO2 23 22 - 29 mmol/L 06/27/2023 9:50 AM [facility] Glucose 92 70 - 115 mg/dL 06/27/2023 9:50 AM [facility] Calcium 9.0 8.4 - 10.2 mg/dL 06/27/2023 9:50 AM [facility] Protein Total 7.0 6.0 - 8.3 g/dL 06/27/2023 9:50 AM [facility] Albumin 3.7 3.4 - 5.0 g/dL 06/27/2023 9:50 AM [facility] Bilirubin Total 0.3 0.2 - 1.2 mg/dL 06/27/2023 9:50 AM [facility] Alkaline Phosphatase 68 40 - 150 U/L 06/27/2023 9:50 AM [facility] ALT 21 5 - 55 U/L 06/27/2023 9:50 AM [facility] AST 22 5 - 34 U/L 06/27/2023 9:50 AM [facility] Anion Gap 7 6 - 16 06/27/2023 9:50 AM [facility] BUN/Creatinine Ratio 25(H) 7 - 23 06/27/2023 9:50 AM [facility] Osmolality Calculated 286 275 - 295 mOsm/kg 06/27/2023 9:50 AM [facility] Albumin/Globulin Ratio 1.1 1.1 - 2.3 06/27/2023 9:50 AM [facility] eGFR by CKD-EPI 87(L) >=90 mL/min/1.7 3 m2 06/27/2023 9:50 AM [facility] Blood BLOOD SPECIMEN / Unknown Venipuncture / Unknown 06/27/2023 9:15 AM BURN TABLE OPERATOR 06/27/2023 9:25 AM BURN TABLE OPERATOR Dennis Nathan MD LAB - CHEMISTRY [facility] Organization Address City/State/ZIP Co de Phone Number [facility] [address] [place] [address], [facility] [phone] * [place] DESTROY PREMALIG LESION, 1ST LESION (02/07/2023 3:30 PM CDT) Narrative Buzz Piedra MD - 02/07/2023 3:30 PM CDT Jaspal Turcois MD 02/07/2023 3:31 PM Diagnosis and treatment options discussed. Cryotherapy (Liquid Nitrogen) to 1 lesion for 4-6 seconds. Number of cycles: 1. Wound care reviewed. Buzz Piedra MD PROCEDURE/MINOR SURG ICAL ORDERABLES * [place] LARYNGOSCOPY,FLEX FIBER,DIAGNOSTIC (12/28/2022 3:17 PM CDT) Narrative Balbir Carrillo MD - 12/28/2022 3:17 PM CDT Balbir Carrillo MD 12/28/2022 3:20 PM Procedure Note Anesthesia: Lidocaine 2% and Kar-Synephrine 1/2% Endoscopy Type: Flexible Himfl-Lqcenoykuuzfga-Scvhnhcrejlj Procedure Details: Informed consent was obtained. The patient was placed in the sitting position. After topical anesthesia and decongestion, the 4 mm laryngoscope was passed. The nasal cavities, nasopharynx, oropharynx, hypopharynx, and larynx were all examined. Vocal cords were examined during respiration and phonation. Findings: -No residual lesions or masses in the vallecula or base of tongue. Normal vocal cord mobility. A stable to reduced size of the left aryepiglottic fold papillomatous lesion Disposition: The patient tolerated procedure well. Complications: None Balbir Carrillo MD PROCEDURE/MINOR SURG ICAL ORDERABLES * PET CT SKULL TO MID THIGH (12/20/2022 9:16 AM CDT) Anatomical Region Laterality Modality Head, Lower Extremity Positron E mission Tomography (PET) 12/20/2022 9:19 AM CDT Impressions 12/20/2022 11:14 AM CDT IMPRESSION: 1.No residual soft tissue thickening and metabolic activity of the base the tongue/epiglottic region and no evidence of cervical lymphadenopathy. Findings are consistent with treatment response and postradiation changes. Continued follow-up is recommended. > Dictated by Leonardo Vargas DO (Animal Tech) > Dictated by Leonardo Vargas (Animal Tech) 12/20/2022 9:19 AM IMegha DO have personally reviewed and interpreted this examination/study. 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 Evaluate for subsequent treatment strategy. Patient's BMI 21.95 kg/m2. TECHNIQUE: 6.46 mCi of F-18 FDG was injected intravenously in the right hand. PET/CT images were acquired from top of the head to the mid-thigh after approximately 60 minutes post-injection with the CT being low-dose, non-contrast. No separate report for the CT was generated as it was of non-diagnostic quality and was used for anatomic localization and attenuation correction only. Blood glucose level at the time of injection was 74 mg/dL. COMPARISON: Whole body PET/CT dated 09/25/2022 and 04/26/2022. FINDINGS: For reference, SUV max of liver is 3.5, previously 3.7. Head and neck: There is physiological FDG activity throughout the brain parenchyma. No abnormal FDG focus is present. There is no residual soft tissue thickening at the base of the tongue/epiglottic region now with SUV max of 3.6, previously 4.1. No cervical lymphadenopathy or hypermetabolic lymph nodes are identified in the neck. Chest: Right internal jugular Port-A-Cath terminates in the superior cavoatrial junction. Mild bilateral dependent atelectasis is present. No pleural effusion or focal pleural thickening is identified. There is no evidence of pneumothorax. No suspicious hypermetabolic pulmonary nodule is identified. The heart size is normal. No pericardial effusion is present. No hypermetabolic or enlarged mediastinal, axillary, or supraclavicular lymphadenopathy is seen. Abdomen and pelvis: Interval removal of the gastrostomy tube. A residual surgical clip is seen in the wall of the greater curvature of the stomach. Colonic diverticulosis without CT evidence of diverticulitis. Within the limitations of a noncontrast examination, the visceral abdominal organs are otherwise unremarkable. There is normal FDG activity throughout the small and large bowel. No free air or free fluid is identified within the abdomen. There is no hypermetabolic or enlarged abdominal or pelvic lymphadenopathy. Atherosclerotic calcification of the abdominal aorta and its branches is identified. Musculoskeletal: No suspicious lytic or blastic lesions are identified. No abnormal FDG uptake is seen within the osseous structures. Multilevel degenerative changes throughout the spinal column are identified. Spinal stimulator in the right posterior pelvic subcutaneous fat is unchanged in position. Procedure Note Megha Lenz, DO - 12/20/2022 PROCEDURE: PET CT SKULL TO MID THIGH, DATE/TIME OF EXAM: 12/20/2022 9:16 AM, LOCATION [facility] INDICATION: C01: Cancer of base of tongue (CMS/HCC) Referring Physician: DENNIS NATHAN MD HISTORY: 77-year-old female with history of squamous cell carcinoma atthe base of the tongue status post chemoradiation therapy completed on 06/25/2022. Evaluate for subsequent treatment strategy. Patient's BMI21.95 kg/m2. TECHNIQUE: 6.46 mCi of F-18 FDG was injected intravenously in the right hand. PET/CT images were acquired from top of the head to the mid-thigh after approximately 60 minutes post-injection with the CT beinglow-dose, non-contrast. No separate report for the CT was generated as it was of non-diagnostic quality and was used for anatomic localization and attenuation correction only. Blood glucose level at the time ofinjection was 74 mg/dL. COMPARISON: Whole body PET/CT dated 09/25/2022 and 04/26/2022. FINDINGS: For reference, SUV max of liver is 3.5, previously 3.7. Head and neck: There is physiological FDG activity throughout the brain parenchyma. No abnormal FDG focus is present. There is no residual soft tissue thickening at the base of the tongue/epiglottic region now with SUV max of 3.6, previously 4.1. No cervical lymphadenopathy or hypermetabolic lymph nodes are identified in the neck. Chest: Right internal jugular Port-A-Cath terminates in the superior cavoatrial junction. Mild bilateral dependent atelectasis is present. No pleural effusion or focal pleural thickening is identified. There is no evidenceof pneumothorax. No suspicious hypermetabolic pulmonary nodule isidentified. The heart size is normal. No pericardial effusion is present. No hypermetabolic or enlarged mediastinal, axillary, or supraclavicular lymphadenopathy is seen. Abdomen and pelvis: Interval removal of the gastrostomy tube. A residual surgical clip isseen in the wall of the greater curvature of the stomach. Colonicdiverticulosis without CT evidence of diverticulitis. Within the limitations of a noncontrast examination, the visceral abdominal organs are otherwise unremarkable. There is normal FDG activity throughout the small andlarge bowel. No free air or free fluid is identified within the abdomen. There is no hypermetabolic or enlarged abdominal or pelvic lymphadenopathy. Atherosclerotic calcification of the abdominal aorta and its branches is identified. Musculoskeletal: No suspicious lytic or blastic lesions are identified. No abnormal FDG uptake is seen within the osseous structures. Multilevel degenerative changes throughout the spinal column are identified. Spinal stimulatorin the right posterior pelvic subcutaneous fat is unchanged in position. IMPRESSION: 1.No residual soft tissue thickening and metabolic activity of the basethe tongue/epiglottic region and no evidence of cervical lymphadenopathy. Findings are consistent with treatment response and postradiationchanges. Continued follow-up is recommended. > Dictated by Leonardo Vargas DO (Animal Tech) > Dictated by Leonardo Vargas (Animal Tech) 12/20/2022 9:19 AM IMegha DO have personally reviewed and interpreted this examination/study. > Interpreting Provider: Megha Lenz DO on 12/20/2022 11:14 AM Dennis Nathan MD NM ORDERABLES * GLUCOSE SCREEN - POCT (IP) [facility] (12/20/2022 7:55 AM CDT) Only the most recent of3 resultswithin the time period is included. Glucose WB/POC 74 70 - 115 mg/dL [facility] Blood BLOOD SPECIMEN / Unknown 12/20/2022 7:55 AM CDT Dennis Nathan MD LAB - POINT OF CARE ORDERABLES [facility] [address] [place] [address], [place] [phone] * FL SWALLOWING FUNCTION STUDY (12/03/2022 3:53 PM CDT) Anatomical Region Laterality Modality Chest Radiographic Lea ging 12/03/2022 3:53 PM CDT Narrative 12/03/2022 3:56 PM CDT PROCEDURE: FL SWALLOWING FUNCTION STUDY, DATE/TIME OF EXAM: 12/03/2022 2:26 PM, LOCATION [facility] INDICATION: C01: Squamous cell carcinoma of base of tongue (CMS/HCC) COMPARISON: None. FLUOROSCOPY TIME: 3.4 minutes TECHNIQUE: Modified barium swallow fluoroscopy performed in conjunction with speech pathology staff. The speech pathologist administered varying thickness barium liquids and solids under direct Cine fluoroscopy. FINDINGS/IMPRESSION: Fluoroscopic assistance was provided for a modified barium swallow test performed by Speech Therapy. Please see the Speech Therapy report for details. Report dictated by Benoit Peterson MD (vice president fixed income). Ravin Lacy MD have personally reviewed and interpreted this examination/study. 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 FLUOROSCOPY TIME: 3.4 minutes TECHNIQUE: Modified barium swallow fluoroscopy performed in conjunction with speech pathology staff. The speech pathologist administered varying thickness barium liquids and solids under direct Cine fluoroscopy. FINDINGS/IMPRESSION: Fluoroscopic assistance was provided for a modified barium swallow test performed by Speech Therapy. Please see the Speech Therapy report for details. Report dictated by Benoit Peterson MD (vice president fixed income). Ravin Lacy MD have personally reviewed and interpreted this examination/study. > Interpreting Provider: Ravin Ulloa MD on 33:56 PM Balbir Carrillo MD FLUOROSCOPY ORDERABL ES * [place] LARYNGOSCOPY,FLEX FIBER,DIAGNOSTIC (11/21/2022 2:19 PM CDT) Narrative Balbir Carrillo MD - 11/21/2022 2:19 PM CDT Balbir Carrillo MD 11/21/2022 2:22 PM Procedure Note Anesthesia: Lidocaine 2% and Kar-Synephrine 1/2% Endoscopy Type: Flexible Jpfwa-Jiruzhozixlscd-Rtwmkksvywfv Procedure Details: Informed consent was obtained. The patient was placed in the sitting position. After topical anesthesia and decongestion, the 4 mm laryngoscope was passed. The nasal cavities, nasopharynx, oropharynx, hypopharynx, and larynx were all examined. Vocal cords were examined during respiration and phonation. Findings: -No visible lesions along the primary site in the tongue base or vallecula. Normal vocal cord mobility. There is a sessile papillomatous appearing lesion on the left laryngeal surface of the epiglottis near the area epiglottic fold less than 1 cm in dimension Disposition: The patient tolerated procedure well. Complications: None Balbir Carrillo MD PROCEDURE/MINOR SURG ICAL ORDERABLES * PATHOLOGY TISSUE (11/13/2022 4:08 PM CDT) Case Report Surgical Pathology Report Case: [id number] Authorizing Provider: Jimmy Bray, Collected: 11/13/2022 04:08 PM Ordering Location: [facility] Received: 11/14/2022 07:23 AM Pathologist: Nirmala Salgado MD Specimens: A) - Stomach, random stomach biopsies B) - Esophagus, esophagus - GE junction biopsies r/o Barretts C) - Esophagus, distal esophagus biopsies D) - Esophagus, proximal esophagus biopsies 11/15/2022 6:13 PM CDT [facility] Final Diagnosis Stomach, random, biopsy (A): - No histopathologic abnormality - No active inflammation or H. pylori organisms (H&E examination) Esophagus, GE junction, biopsy (B): - Squamocolumnar mucosa with intestinal metaplasia - No dysplasia Esophagus, distal, biopsy (C): - No histopathologic abnormality - No increase in intraepithelial eosinophils Esophagus, proximal, biopsy (D): - No histopathologic abnormality - No increase in intraepithelial eosinophils 11/15/2022 6:13 PM CDT [facility] Microscopic Description and Comment Microscopic examination substantiates the final diagnosis. 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 Operative procedure/findings: Upper GI endoscopy - mild irregular mucosa in the gastric cardia and body, biopsied; irregular z-line, biopsied; normal appearing and widely patent esophagus, biopsied. 11/15/2022 6:13 PM [facility] PATHOLOGY LAB Gross Description The requisition and specimen(s) are identified with the patient's name Bhumi Smith. Received in formalin, specimen A , are 2 samuels soft tissues, 0.2 and 0.3 cm, which are submitted in toto in cassette A1. /ML In formalin labeled B is a 0.2 cm samuels soft tissue which is submitted in toto in cassette B1. /ML In formalin labeled C are 2 white soft tissues, 0.3 and 0.4 cm, which are submitted in toto in cassette C1. /ML In formalin labeled D are 2 samuels 0.3 cm soft tissues which are submitted in toto in cassette D1. /ML 11/15/2022 6:13 PM [facility] Disclaimer The performance characteristics of all immunohistochemical and indirect immunofluorescence stains (if any) cited in this report were determined by the Histopathology [facility] of [facility]. Some of these tests were developed by our own laboratory and have not been cleared or approved by the US Food and Drug Administration. The FDA does not require this test to go through premarket FDA review. These tests are used for clinical purposes. They should not be regarded as investigational or for research. This laboratory is certified under the Clinical Laboratory Improvement Amendments (CLIA) as qualified to perform high complexity clinical laboratory testing. This case has been personally reviewed and interpreted by the attending (teaching) pathologist. 11/15/2022 6:13 PM [facility] Embedded Images 11/15/2022 6:13 PM [facility] LAB Biopsy, NOS ENTIRE STOMACH / Unknown 11/13/2022 4:08 PM CDT 11/14/2022 7:23 AM CDT Comment:Pre-op diagnosis: Dysphagia, unspecified type [R13.10] Biopsy, NOS REGION OF ESOPHAGUS / Unknown 11/13/2022 4:10 PM CDT 11/14/2022 7:23 AM CDT Comment:Pre-op diagnosis: Dysphagia, unspecified type [R13.10] Biopsy, NOS REGION OF ESOPHAGUS / Unknown 11/13/2022 4:11 PM CDT 11/14/2022 7:23 AM CDT Comment:Pre-op diagnosis: Dysphagia, unspecified type [R13.10] Biopsy, NOS REGION OF ESOPHAGUS / Unknown 11/13/2022 4:12 PM CDT 11/14/2022 7:23 AM CDT Comment:Pre-op diagnosis: Dysphagia, unspecified type [R13.10] Jimmy Webb MD LAB - PATHOL OGY/CYTOLOGY ORDERABLES Performing Organization Address City/State/[facility] Co de Phone Number [facility] PATHOLOGY LAB [facility] [phone] * EGD (11/13/2022 3:57 PM CDT) Report Endoscopy POC Endoscopy Department Report __ _ Patient Name: Bhumi Smith Procedure Date: 11/13/2022 3:57 PM Date of : 1945 Classification: Inpatient Gender: Female Ethnicity: Not or Race: White __ _ Providers: Jimmy Webb MD Referring MD: Dennis Nathan MD Procedure: Upper GI endoscopy Indications: Dysphagia Medications: See the Anesthesia note for documentation of the administered medications, Monitored Anesthesia Care Description of Procedure: After obtaining informed consent, the endoscope was passed under direct vision. Throughout the procedure, the patient's blood pressure, pulse, and oxygen saturations were monitored continuously. The Endoscope was introduced through the mouth, and advanced to the second part of duodenum. The upper GI endoscopy was accomplished without difficulty. The patient tolerated the procedure well. Findings: The esophagus was normal appearing. The esophageal lumen was widely patent. The esophagogastric landmarks were identified. The Z-line was mildly irregular. Proximal esophagus, distal esophagus and gastroesophageal junction biopsies were taken with a cold forceps for histology. Mild irregular mucosa was found in the gastric cardia and body. The stomach was otherwise normal appearing including retroflexed views. Targetted biopsies were taken with a cold forceps for histology. The examined duodenum was normal. Estimated Blood Loss: Estimated blood loss was minimal. Complications: No immediate complications. Impression: - Normal appearing esophagus with widely patent esophageal lumen. Mildly irregular Z-line. Proximal esophagus, distal esophagus and gastroesophageal junction biopsies obtained. - Mild irregular mucosa in the gastric cardia and body, otherwise normal stomach. Targetted biopsies obtained. - Normal examined duodenum. Moderate Sedation: . Recommendation: - Monitor for fevers, bleeding, pain. - Resume previous diet as tolerated. - Resume previous medications today. - Follow-up biopsy results. Further management accordingly. - Follow-up with the referring providers has been discussed with the patient/caregiver. - The potential complications and concerning symptoms/findings, including but not limited to early or delayed fevers, infection, pain, bleeding, perforation, were discussed with the patient/caregiver. Emergency contact information was provided. Attending Participation: I was present and participated during the entire procedure, including non-hatfield portions. Procedure Code(s): --- Professional --- 15169, Esophagogastroduode noscopy, flexible, transoral; with biopsy, single or multiple Diagnosis Code(s): --- Professional --- K31.89, Other diseases of stomach and duodenum R13.10, Dysphagia, unspecified CPT copyright 2019 [employer]. All rights reserved. The codes documented in this report are preliminary and upon education director review may be revised to meet current compliance requirements. Jimmy Webb MD 11/13/2022 4:21:47 PM Note Initiated On: 11/13/2022 3:57 PM Number of Addenda: 0 [facility] [address] [place] [address] [facility] 11/13/2022 3:57 PM CDT Jimmy Webb MD GI PROCEDURE ORDERABLES [facility] * IR G D J COLON TUBE REMOVAL (10/10/2022 1:17 PM CDT) Anatomical Region Laterality Modality Abdomen X-Ray Angiograph y 10/26/2022 1:47 PM CDT Impressions 10/26/2022 1:48 PM CDT Impression: Fluoroscopy-guided removal of the NG tube Dr. Haritha Lacy was present and performed the entire procedure > Interpreting Provider: Josué Mg MD on 10/26/2022 1:48 PM Narrative 10/26/2022 1:48 PM CDT PROCEDURE: IR G D J COLON TUBE REMOVAL , DATE/TIME OF EXAM: 10/10/2022 1:19 PM, LOCATION [facility] INDICATION: Z93.1: Gastrointestinal tube present (CMS/HCC) Patient:Bhumi Smith Attending:Josué Mg MD Loading Supervisor:None Diagnosis/Indication:G tube removal Procedure:Fluoroscopy-guidedremoval of G tube Anesthesia:None Additional medications given:None Estimated blood loss: Minimal Specimens:None Immediate complications:None Procedure Note Josué Mg MD - 10/26/2022 PROCEDURE: IR G D J COLON TUBE REMOVAL , DATE/TIME OF EXAM: 10/10/2022 1:19 PM, LOCATION [facility] INDICATION: Z93.1: Gastrointestinal tube present (CMS/HCC) Patient:Bhumi Smith Attending:Josué Mg MD Loading Supervisor:None Diagnosis/Indication:G tube removal Procedure:Fluoroscopy-guidedremoval of G tube Anesthesia:None Additional medications given:None Estimated blood loss: Minimal Specimens:None Immediate complications:None Impression: Fluoroscopy-guided removal of the NG tube Dr. Haritha Lacy was present and performed the entire procedure > Interpreting Provider: Josué gM MD on 10/26/2022 1:48 PM Dennis Nathan MD IR ORDERABLES * PET CT WHOLE BODY (09/25/2022 10:34 AM BURN TABLE OPERATOR) Only the most recent of2 resultswithin the time period is included. Anatomical Region Laterality Modality Positron Emissio n Tomography (PET) 09/25/2022 10:3 8 AM BURN TABLE OPERATOR Impressions 09/25/2022 3:08 PM BURN TABLE OPERATOR IMPRESSION: 1. Substantially decreased soft tissue thickening and metabolic activity at the base of the tongue/epiglottic region as well as decreased size of the cervical lymph nodes suggestive of response to therapy with associated postradiation changes. Recommend continued follow-up. 2. No PET/CT evidence of metastatic disease. Report dictated by Jagjit Pérez DO (vice president fixed income). > Dictated by Jagjit Pérez DO (Animal Tech) 09/25/2022 2:25 PM IMegha DO have personally reviewed and interpreted this examination/study. > Interpreting Provider: Megha Lenz DO on 09/25/2022 3:08 PM Narrative 09/25/2022 3:08 PM BURN TABLE OPERATOR PROCEDURE: PET CT WHOLE BODY, DATE/TIME OF EXAM: 09/25/2022 10:34 AM, LOCATION [facility] INDICATION: C01: Cancer of base of tongue (CMS/HCC) COMPARISON: PET/CT dated 04/26/2022 HISTORY: 77-year-old female with history of squamous cell carcinoma the base of the tongue status post chemoradiation therapy which was completed on 06/25/2022. Evaluate for subsequent treatment strategy. TECHNIQUE: 6.37 mCi of F-18 FDG by IV in the left antecubital fossa. PET/CT image acquisition from top of the head to feet after approximately 60 minutes post-injection with the CT being low-dose, non-contrast. No separate report for the CT. CT was used for attenuation correction and anatomic localization. Blood glucose level at the time of injection was 107 mg/dl. Patient's BMI is 21.98 kg/m. FINDINGS: For reference, SUVmax of liver is 0.6, previously 4.1. Head and neck: Substantially decreased soft tissue thickening at the base of the tongue/epiglottic region with decreased metabolic activity with SUV max of 4.1, previously 8.5. Previously seen left group 3 lymph nodes and right level 2 lymph nodes have substantially decreased in size. Normal metabolic uptake in the brain. No other abnormal radiotracer focus in the head or neck. Chest: The lungs are clear with no evidence of pneumothorax or pleural effusion. No abnormal FDG avid mediastinal nodes. Benign appearing bilateral axillary nodes. Right internal jugular Port-A-Cath terminates in the superior cavoatrial junction. Abdomen and pelvis: Gastrostomy tube terminates in the stomach. The liver, kidneys, adrenal glands, spleen and pancreas are grossly unremarkable. Normal FDG activity is seen throughout the bowel. Resolution of previously seen intense activity in the right colon. Diverticulosis without evidence of diverticulitis. Benign-appearing bilateral inguinal nodes. Musculoskeletal: No abnormal FDG avid lytic or sclerotic lesions are identified. No abnormal radiotracer focus is present. Spinal stimulator is again seen in the right posterior pelvic subcutaneous fat without complication. Procedure Note Megha Lenz DO - 09/25/2022 PROCEDURE: PET CT WHOLE BODY, DATE/TIME OF EXAM: 09/25/2022 10:34 AM, LOCATION [facility] INDICATION: C01: Cancer of base of tongue (CMS/HCC) COMPARISON: PET/CT dated 04/26/2022 HISTORY: 77-year-old female with history of squamous cell carcinoma the base of the tongue status post chemoradiation therapy which wascompleted on 06/25/2022. Evaluate for subsequent treatment strategy. TECHNIQUE: 6.37 mCi of F-18 FDG by IV in the left antecubital fossa. PET/CT image acquisition from top of the head to feet after approximately 60 minutes post-injection with the CT being low-dose, non-contrast. No separate report for the CT. CT was used for attenuation correction and anatomic localization. Blood glucose level at the time of injection [id number] mg/dl. Patient's BMI is 21.98 kg/m. FINDINGS: For reference, SUVmax of liver is 0.6, previously 4.1. Head and neck: Substantially decreased soft tissue thickening at the base of the tongue/epiglottic region with decreased metabolic activity with SUV maxof 4.1, previously 8.5. Previously seen left group 3 lymph nodes and right level 2 lymph nodes have substantially decreased in size. Normalmetabolic uptake in the brain. No other abnormal radiotracer focus in the head or neck. Chest: The lungs are clear with no evidence of pneumothorax or pleuraleffusion. No abnormal FDG avid mediastinal nodes. Benign appearing bilateralaxillary nodes. Right internal jugular Port-A-Cath terminates in the superior cavoatrial junction. Abdomen and pelvis: Gastrostomy tube terminates in the stomach. The liver, kidneys, adrenal glands, spleen and pancreas are grossly unremarkable. Normal FDGactivity is seen throughout the bowel. Resolution of previously seen intense activity in the right colon. Diverticulosis without evidence of diverticulitis. Benign-appearing bilateral inguinal nodes. Musculoskeletal: No abnormal FDG avid lytic or sclerotic lesions are identified. Noabnormal radiotracer focus is present. Spinal stimulator is again seen in theright posterior pelvic subcutaneous fat without complication. IMPRESSION: 1. Substantially decreased soft tissue thickening and metabolic activityat the base of the tongue/epiglottic region as well as decreased size ofthe cervical lymph nodes suggestive of response to therapy with associated postradiation changes. Recommend continued follow-up. 2. No PET/CT evidence of metastatic disease. Report dictated by Jagjit Pérez DO (vice president fixed income). > Dictated by Jagjit Pérez DO (Animal Tech) 09/25/2022 2:25 PM IMegha DO have personally reviewed and interpreted this examination/study. > Interpreting Provider: Megha Lenz DO on 09/25/2022 3:08 PM Dennis Nathan MD NM ORDERABLES * Rad Onc Aria Session Summary (06/25/2022 11:27 AM BURN TABLE OPERATOR) Course ID BaseofTong [id number] RAD ONC TREATMENT Course First Treatment Date 04/30/2022 8:59 AM RAD ONC TREATMENT Reference Point ID [id number] RAD ONC TREATMENT Reference Point Dosage Given to Date 70 Gy RAD ONC TREATMENT Reference Point Session Dosage Given 2 Gy RAD ONC TREATMENT Plan ID #BOT RAD ONC TREATMENT Plan Fractions Treated to Date 35 RAD ONC TREATMENT Plan Total Fractions Prescribed 35 RAD ONC TREATMENT Plan Total Prescribed Dose 7000 cGy RAD ONC TREATMENT 06/25/2022 11:2 7 AM BURN TABLE OPERATOR Provider Unknown RADIATION ONCOLOGY O RDERABLES RAD ONC TREATMENT * (ABNORMAL) CBC W/O DIFFERENTIAL (06/25/2022 4:00 AM [facility]) Only the most recent of8 resultswithin the time period is included. WBC 7.7 3.5 - 10.5 10 3/uL 06/25/2022 4:16 AM [facility] RBC 2.51(L) 3.80 - 5.20 10 6/uL 06/25/2022 4:16 AM [facility] Hemoglobin 8.1(L) 12.0 - 15.6 g/dL 06/25/2022 4:16 AM [facility] Hematocrit 24.6(L) 35.0 - 45.0 % 06/25/2022 4:16 AM [facility] MCV 98.0 80.7 - 98.3 fL 06/25/2022 4:16 AM [facility] MCH 32.3 26.7 - 34.0 pg 06/25/2022 4:16 AM [facility] MCHC 32.9 30.8 - 35.9 g/dL 06/25/2022 4:16 AM [facility] RDW-SD 57.0(H) 36.0 - 50.0 fL 06/25/2022 4:16 AM [facility] RDW-CV 15.9(H) 11.2 - 14.8 % 06/25/2022 4:16 AM [facility] Platelet Count 281 150 - 400 10 3/uL 06/25/2022 4:16 AM [facility] MPV 9.8 9.4 - 12.9 fL 06/25/2022 4:16 AM [facility] nRBC Absolute 0.00 0 10 3/uL 06/25/2022 4:16 AM [facility] nRBC Auto 0.0 0 /100 WBC 06/25/2022 4:16 AM [facility] Blood BLOOD SPECIMEN / Unknown Venipuncture / Unknown 06/25/2022 4:00 AM BURN TABLE OPERATOR 06/25/2022 4:10 AM [facility] Trever Chan MD LAB - HEMATOLOGY ORD ERABLES [facility] [address] [place] [address], [facility] [phone] * (ABNORMAL) RENAL FUNCTION PANEL (06/25/2022 4:00 AM [facility]) Only the most recent of14 resultswithin the time period is included. BUN 16 7 - 26 mg/dL 06/25/2022 4:36 AM [facility] Creatinine 0.57 0.56 - 0.96 mg/dL 06/25/2022 4:36 AM [facility] Sodium 131(L) 136 - 145 mmol/L 06/25/2022 4:36 AM [facility] Potassium 4.3 3.5 - 4.5 mmol/L 06/25/2022 4:36 AM [facility] Chloride 95(L) 98 - 107 mmol/L 06/25/2022 4:36 AM [facility] CO2 27 22 - 29 mmol/L 06/25/2022 4:36 AM [facility] Glucose 218(H) 70 - 115 mg/dL 06/25/2022 4:36 AM [facility] Albumin 2.4(L) 3.4 - 5.0 g/dL 06/25/2022 4:36 AM [facility] Calcium 8.8 8.4 - 10.2 mg/dL 06/25/2022 4:36 AM [facility] Phosphorus 4.4 2.9 - 5.1 mg/dL 06/25/2022 4:36 AM [facility] Anion Gap 13 8 - 18 06/25/2022 4:36 AM [facility] BUN/Creatinine Ratio 28(H) 7 - 23 06/25/2022 4:36 AM [facility] Osmolality Calculated 280 270 - 300 mOsm/kg 06/25/2022 4:36 AM [facility] eGFR by CKD-EPI >90 >=90 mL/min/1.7 3 m2 06/25/2022 4:36 AM [facility] Blood BLOOD SPECIMEN / Unknown Venipuncture / Unknown 06/25/2022 4:00 AM BURN TABLE OPERATOR 06/25/2022 4:10 AM BURN TABLE OPERATOR Shen Skinner MD LAB - CHEMISTRY LOVE ADEN Performing Organization Address City/[facility]/ZIP Co de Phone Number [address] [address], [facility] [phone] * MAGNESIUM BLOOD (06/25/2022 4:00 AM BURN TABLE OPERATOR) Only the most recent of22 resultswithin the time period is included. Magnesium 1.8 1.6 - 2.6 mg/dL 06/25/2022 4:36 AM BURN TABLE OPERATOR [facility] Blood BLOOD SPECIMEN / Unknown Venipuncture / Unknown 06/25/2022 4:00 AM BURN TABLE OPERATOR 06/25/2022 4:10 AM BURN TABLE OPERATOR Shen Skinner MD LAB - CHEMISTRY LOVE ADEN Performing Organization Address [facility] Services/[facility] de Phone Number [address] [address], [facility] [phone] * Rad Onc Aria Session Summary (06/22/2022 8:43 AM BURN TABLE OPERATOR) Course ID BaseofTong ue9/22 RAD ONC TREATMENT Course First Treatment Date 04/30/2022 8:59 AM RAD ONC TREATMENT Reference Point ID [id number] RAD ONC TREATMENT Reference Point Dosage Given to Date [id number] Gy RAD ONC TREATMENT Reference Point Session Dosage Given 2 Gy RAD ONC TREATMENT Plan ID #BOT RAD ONC TREATMENT Plan Fractions Treated to Date 34 RAD ONC TREATMENT Plan Total Fractions Prescribed 35 RAD ONC TREATMENT Plan Total Prescribed Dose 7000 cGy RAD ONC TREATMENT 06/22/2022 8:43 AM BURN TABLE OPERATOR Provider Unknown RADIATION ONCOLOGY O RDERABLES Performing Organization Address [facility] Co de Phone Number RAD ONC TREATMENT * Rad Onc Aria Session Summary (06/21/2022 11:05 AM BURN TABLE OPERATOR) Course ID BaseofTong ue9/22 RAD ONC TREATMENT Course First Treatment Date 04/30/2022 8:59 AM RAD ONC TREATMENT Reference Point ID [id number] RAD ONC TREATMENT Reference Point Dosage Given to Date 66 Gy RAD ONC TREATMENT Reference Point Session Dosage Given 2 Gy RAD ONC TREATMENT Plan ID #BOT RAD ONC TREATMENT Plan Fractions Treated to Date 33 RAD ONC TREATMENT Plan Total Fractions Prescribed 35 RAD ONC TREATMENT Plan Total Prescribed Dose 7000 cGy RAD ONC TREATMENT 06/21/2022 11:0 5 AM BURN TABLE OPERATOR Provider Unknown RADIATION ONCOLOGY O RDERABLES RAD ONC TREATMENT * Rad Onc Aria Session Summary (06/20/2022 8:15 AM BURN TABLE OPERATOR) Course ID BaseofTong ue9/22 RAD ONC TREATMENT Course First Treatment Date 04/30/2022 8:59 AM RAD ONC TREATMENT Reference Point ID [id number] RAD ONC TREATMENT Reference Point Dosage Given to Date 64 Gy RAD ONC TREATMENT Reference Point Session Dosage Given 2 Gy RAD ONC TREATMENT Plan ID #BOT RAD ONC TREATMENT Plan Fractions Treated to Date 32 RAD ONC TREATMENT Plan Total Fractions Prescribed 35 RAD ONC TREATMENT Plan Total Prescribed Dose 7000 cGy RAD ONC TREATMENT 06/20/2022 8:15 AM BURN TABLE OPERATOR Provider Unknown RADIATION ONCOLOGY O RDERABLES Performing Organization Address [facility] Co de Phone Number RAD ONC TREATMENT * Rad Onc Aria Session Summary (06/19/2022 7:41 AM BURN TABLE OPERATOR) Course ID BaseofTong ue9/22 RAD ONC TREATMENT Course First Treatment Date 04/30/2022 8:59 AM RAD ONC TREATMENT Reference Point ID [id number] RAD ONC TREATMENT Reference Point Dosage Given to Date 62 Gy RAD ONC TREATMENT Reference Point Session Dosage Given 2 Gy RAD ONC TREATMENT Plan ID #BOT RAD ONC TREATMENT Plan Fractions Treated to Date 31 RAD ONC TREATMENT Plan Total Fractions Prescribed 35 RAD ONC TREATMENT Plan Total Prescribed Dose 7000 cGy RAD ONC TREATMENT 06/19/2022 7:41 AM BURN TABLE OPERATOR Provider Unknown RADIATION ONCOLOGY O RDERABLES RAD ONC TREATMENT * (ABNORMAL) VITAMIN B12 (06/19/2022 4:03 AM BURN TABLE OPERATOR) Only the most recent of2 resultswithin the time period is included. Vitamin B12 1,264(H) 213 - 816 pg/mL 06/19/2022 5:00 AM BURN TABLE OPERATOR [facility] Blood BLOOD SPECIMEN / Unknown Venipuncture / Unknown 06/19/2022 4:03 AM BURN TABLE OPERATOR 06/19/2022 4:07 AM BURN TABLE OPERATOR Shen Skinner MD LAB - CHEMISTRY LOVE ADEN [facility] [address] [place] [address], [facility] [phone] * IR PERC G TUBE PLACEMENT (06/18/2022 10:50 AM BURN TABLE OPERATOR) Anatomical Region Laterality Modality Abdomen X-Ray Angiograph y 06/18/2022 5:23 PM BURN TABLE OPERATOR Impressions 06/18/2022 5:26 PM BURN TABLE OPERATOR Impression: Successful percutaneous placement of a 18-Austrian balloon type gastrostomy catheter under fluoroscopic guidance, as described above. Note: The catheter can be used after 6 hours. Flush the catheter with 30 mL of water before and after each use. Recommend liquid formulation of medications. Avoid crushed pills to maintain patency. Please contact the pharmacy for better formulation if any pills need to be administered through the catheter. In case of abdominal distension or discomfort, stop feeding and call the IR service. I, Dr. Antwon Ruiz MD, was present and performed/supervised the entire procedure. Moderate sedation on this patient was ordered by me, administered intravenously in my presence, and monitored by the procedure nurse as an independent trained observer who was present throughout the procedure. The following parameters were monitored: oxygen saturation, heart rate, blood pressure, and response to care. Intra-service sedation start time was 1025 and end time was 1035 during which I was present. Total physician intra-service sedation time was 11 minutes. For details on pre moderate sedation and post moderate sedation patient evaluation, please review the evaluation forms in [facility]. For details on monitored clinical parameters during the intra-service sedation time, please review the procedure nurse documentation in [facility]. 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 Antwon Ruiz MD, Attending Physician Sedation:Versed:1mg, Fentanyl: 50mcg Sedation start time:1025hours Procedure start time:1025hours Procedure end time:1035hours Additional drugs:1mg [id number] viscous lidocaine Contrast:20mL of Isovue-300 Fluoroscopy time:0.5min Procedure: 1.Placement of a temporary nasogastric catheter under fluoroscopic guidance. 2.Percutaneous placement of two T-fasteners under fluoroscopic guidance. 3.Percutaneous placement of a 18-Austrian balloon type gastrostomy catheter under fluoroscopic guidance. Procedure in detail: The procedure, risks, and possible complications were explained to the patient in detail, and informed consent was obtained. The patient was placed supine on the angiography table. The left upper quadrant was then prepped and draped in the usual sterile manner. A wire stripping machine operator film of upper abdomen was obtained which was unremarkable. A nasogastric catheter was placed into the stomach under fluoroscopic guidance. 1 mg Glucagon IV was given prior to the procedure to decrease gastric motility. The patient received intravenous Versed and Fentanyl for conscious sedation. A qualified radiology nurse monitored the patients vital signs throughout the procedure. Through the nasogastric tube, air was insufflated into the stomach. After administering 1% Lidocaine for local anesthesia, two T fasteners were deployed adjacent to the intended entry site of the gastrostomy catheter under fluoroscopic guidance to anchor the stomach to the anterior abdominal wall. Intraluminal position within the stomach of each T fastener was confirmed by air aspiration and contrast injection. The marked site for the gastrostomy catheter was then infiltrated with 1% Lidocaine for local anesthesia, and a small skin incision was made. An 18-gauge needle was advanced into the stomach lumen under fluoroscopic guidance. The needle entry was documented. With the needle tip in the gastric lumen, intraluminal position was confirmed by air aspiration and contrast injection. A 0.035 inch guidewire was advanced through the needle and looped within the stomach. After a series of dilatations, an 18 Austrian peel-away sheath was advanced. Through the peel-away and over the guidewire, a 18 Austrian gastrostomy catheter was advanced into the stomach. The catheter was secured by balloon insufflation. Hand injection of contrast through the gastrostomy catheter confirmed intraluminal position within the stomach. The nasogastric catheter was then removed. The patient tolerated the procedure well and was transferred to the holding area in stable condition. There were no immediate complications associated with the procedure. 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 Antwon Ruiz MD, Attending Physician Sedation:Versed:1mg, Fentanyl: 50mcg Sedation start time:1025hours Procedure start time:1025hours Procedure end time:1035hours Additional drugs:1mg [id number] viscous lidocaine Contrast:20mL of Isovue-300 Fluoroscopy time:0.5min Procedure: 1.Placement of a temporary nasogastric catheter under fluoroscopic guidance. 2.Percutaneous placement of two T-fasteners under fluoroscopic guidance. 3.Percutaneous placement of a 18-Austrian balloon type gastrostomycatheter under fluoroscopic guidance. Procedure in detail: The procedure, risks, and possible complications were explained to the patient in detail, and informed consent was obtained. The patient was placed supine on the angiography table. The left upper quadrant was then prepped and draped in the usual sterile manner. A wire stripping machine operator film of upper abdomen was obtained which was unremarkable. A nasogastric catheter was placed into the stomach under fluoroscopic guidance. 1 mg Glucagon IV was given prior to the procedure to decrease gastric motility. The patient received intravenous Versed and Fentanylfor conscious sedation. A qualified radiology nurse monitored the patients vital signs throughout the procedure. Through the nasogastric tube, air was insufflated into the stomach.After administering 1% Lidocaine for local anesthesia, two T fasteners were deployed adjacent to the intended entry site of the gastrostomy catheter under fluoroscopic guidance to anchor the stomach to the anteriorabdominal wall. Intraluminal position within the stomach of each T fastener was confirmed by air aspiration and contrast injection. The marked site for the gastrostomy catheter was then infiltrated with1% Lidocaine for local anesthesia, and a small skin incision was made. An 18-gauge needle was advanced into the stomach lumen under fluoroscopic guidance. The needle entry was documented. With the needle tip in the gastric lumen, intraluminal position was confirmed by air aspiration and contrast injection. A 0.035 inch guidewire was advanced through the needle and looped within the stomach. After a series of dilatations, an 18 Austrian peel-awaysheath was advanced. Through the peel-away and over the guidewire, a 18 Austrian gastrostomy catheter was advanced into the stomach. The catheter was secured by balloon insufflation. Hand injection of contrast through the gastrostomy catheter confirmed intraluminal position within the stomach. The nasogastric catheter was then removed. The patient tolerated the procedure well and [facility]. There were no immediate complicationsassociated with the procedure. Impression: Successful percutaneous placement of a 18-Austrian balloontype gastrostomy catheter under fluoroscopic guidance, as described above. Note: The catheter can be used after 6 hours. Flush the catheter with 30mL of water before and after each use. Recommend liquid formulation of medications. Avoid crushed pills to maintain patency. Please contact the pharmacy for better formulation if any pills need to be administered through the catheter. In case of abdominal distension or discomfort,stop feeding and call the IR service. I, Dr. Antwon Ruiz MD, was present and performed/supervised the entire procedure. Moderate sedation on this patient was ordered by me, administered intravenously in my presence, and [facility] as an independent trained observer who was present throughout the procedure. The following parameters were monitored: oxygen saturation, heart rate, blood pressure, and response to care. Intra-service sedation start time was 1025 and end time was 1035 during which I was present.Total physician intra-service sedation time was 11 minutes. For details on pre moderate sedation and post moderate sedation patient evaluation, please review the evaluation forms in [facility]. For details on monitored clinical parameters during the intra-service sedation time, please review the procedure nurse documentation in [facility]. > Interpreting Provider: Antwon Ruiz MD on 06/18/2022 5:26 PM Chucho Mays PA-C IR ORDERABLES * PT-INR [facility] (06/18/2022 9:15 AM BURN TABLE OPERATOR) Only the most recent of2 resultswithin the time period is included. PT 12.4 12.1 - 14.8 Seconds 06/18/2022 11:30 AM [facility] INR 0.9 See Comment 06/18/2022 11:30 AM [facility] Comment:The suggested therap eutic range for standard coumadin (warfarin) therapy is an INR of 2.0-3.0. For high-risk patients (Mechanical Mitral Valve Prosthesis, etc.), the suggested prophylactic therapeutic range is an INR of 2.5-3.5. Blood BLOOD SPECIMEN / Unknown Lab Venipuncture / Unknown 06/18/2022 9:15 AM BURN TABLE OPERATOR 06/18/2022 10:57 AM BURN TABLE OPERATOR Shen Skinner MD LAB - COAGULATION OR DERABLES [facility] [address] [place] [address], [facility] [phone] * (ABNORMAL) DIFFERENTIAL MANUAL (06/16/2022 6:23 AM BURN TABLE OPERATOR) Only the most recent of4 resultswithin the time period is included. WBC (corrected for NRBC) 4.1 10 3/uL 06/16/2022 7:29 AM [facility] Total Cell Count 100 06/16/20 22 7:29 AM [facility] Neutrophils Absolute Manual 3.16 1.60 - 7.00 10 3/uL 06/16/2022 7:29 AM [facility] Comment:(BANDS+SEGS) x WBC = NEUT # (ANC) Lymphocyte Absolute Manual 0.12(L) 1.10 - 3.90 10 3/uL 06/16/2022 7:29 AM [facility] Monocytes Absolute Manual 0.66 0.26 - 1.07 10 3/uL 06/16/2022 7:29 AM [facility] Band % Manual 19(H) 0 - 10 % 06/16/2022 7:29 AM [facility] Neutrophil % Manual 58 35 - 70 % 06/16/2022 7:29 AM [facility] Lymphocyte % Manual 3(L) 20 - 43 % 06/16/2022 7:29 AM [facility] Monocytes % Manual 16(H) 5 - 13 % 06/16/2022 7:29 AM [facility] Atypical Lymphocyte % Manual 1(H) 0 % 06/16/2022 7:29 AM [facility] Metamyelocyte % Manual 3(H) 0 % 06/16/2022 7:29 AM [facility] Platelet Estimate Adequate Adequate 022 7:29 AM [facility] RBC Morphology Normal 06/16/2022 7:29 AM [facility] Blood BLOOD SPECIMEN / Unknown Venipuncture / Unknown 06/16/2022 6:23 AM BURN TABLE OPERATOR 06/16/2022 6:38 AM BURN TABLE OPERATOR Shen Skinner MD LAB - HEMATOLOGY ORD ERABLES [facility] [address] [place] [id number], [facility] [phone] * (ABNORMAL) URINE MICROSCOPIC ONLY REFLEX TO CULTURE (06/12/2022 12:27 PM BURN TABLE OPERATOR) Reflex Status Culture not indicated 06/12/2022 12:52 PM [facility] RBC UA 0-2 None Seen, 0-2, 3-5 /HPF 06/12/2022 12:52 PM [facility] WBC UA 0-5 None Seen, 0-5 /HPF 06/12/2022 12:52 PM [facility] Bacteria UA Trace(A) None /HPF 06/12/2022 12:52 PM [facility] Squamous Epithelial Cells UA 0-2 None Seen, 0-2, 3-5 /HPF 06/12/2022 12:52 PM [facility] Mucus UA 1+ /LPF 06/12/2022 12:52 PM [facility] Urine URINE SPECIMEN OBTAINED BY CLEAN CATCH PROCEDURE / Unknown Collection / Unknown 06/12/2022 12:27 PM BURN TABLE OPERATOR 06/12/2022 12:40 PM BURN TABLE OPERATOR Narrative [facility] - 06/12/2022 12:52 PM BURN TABLE OPERATOR Dennis Nathan MD LAB - URINALYSIS ORD ERABLES [address] [address], [facility] [phone] * (ABNORMAL) URINALYSIS REFLEX MICROSCOPIC REFLEX CULTURE (06/12/2022 12:27 PM BURN TABLE OPERATOR) Color UA Yellow Straw, Yellow 06/12/2022 12:52 PM [facility] Clarity UA Clear Clear 06/12/2022 12:52 PM [facility] Specific [place] UA 1.025 1.005 - 1.030 06/12/2022 12:52 PM [facility] pH UA 5.5 5.0 - 8.0 pH 06/12/2022 12:52 PM [facility] Protein UA Negative Negative 06/12/2022 12:52 PM [facility] Glucose UA 2+(A) Negative 06/12/2022 12:52 PM [facility] Ketone UA 4+(A) Negative 06/12/2022 12:52 PM [facility] Bilirubin UA Negative Negative 06/12/2022 12:52 PM [facility] Blood UA Trace(A) Negative 06/12/2022 12:52 PM [facility] Nitrite UA Negative Negative 06/12/2022 12:52 PM [facility] Leukocyte Esterase Negative Negative 06/12/2022 12:52 PM [facility] Urobilinogen UA Negative Negative mg/dL 06/12/2022 12:52 PM [facility] Urine URINE SPECIMEN OBTAINED BY CLEAN CATCH PROCEDURE / Unknown Collection / Unknown 06/12/2022 12:27 PM BURN TABLE OPERATOR 06/12/2022 12:40 PM BURN TABLE OPERATOR Dennis Nathan MD LAB - URINALYSIS ORD ERABLES [address] [address], [facility] [phone] * (ABNORMAL) HYDROXYBUTYRATE BETA (06/12/2022 10:20 AM BURN TABLE OPERATOR) Beta-Hydroxybu tyrate 4.89(H) <0.50 mmol/L 06/12/2022 11:08 AM [facility] Comment:Result obtained by dominick bradley. Blood BLOOD SPECIMEN / Unknown Venipuncture / Unknown 06/12/2022 10:20 AM BURN TABLE OPERATOR 06/12/2022 10:31 AM BURN TABLE OPERATOR Dennis Nathan MD LAB - CHEMISTRY LOVE ADEN [address] [address], [facility] [phone] * (ABNORMAL) C-REACTIVE PROTEIN (06/11/2022 11:38 PM BURN TABLE OPERATOR) C-Reactive Protein 10.0(H) <=0.5 mg/dL 06/12/2022 12:27 AM [facility] Blood BLOOD SPECIMEN / Unknown Venipuncture / Unknown 06/11/2022 11:38 PM BURN TABLE OPERATOR 06/11/2022 11:50 PM BURN TABLE OPERATOR Dennis Nathan MD LAB - CHEMISTRY LOVE ADEN [address] [address], [facility] [phone] * (ABNORMAL) HEMOGLOBIN A1C (06/11/2022 11:38 PM BURN TABLE OPERATOR) Hemoglobin A1c 9.1(H) <=5.6 % 06/12/2022 7:58 AM [facility] Estimated Average Glucose 214 mg/dL 06/12/2022 7:58 AM [facility] Comment: HbA1c Interpretation: Normal : < 5.7% Pre-diabetes: 5.7-6.4% Diabetes: Equal to or greater than 6.5% Test results diagnostic of diabetes should be repeated for confirmation. Treatment target values recommended by ADA and other clinical organizations should be used to evaluate metabolic control in patients. Reference: [place] [employer], Standards of Care in Diabetes -2020 In patients 70 years and older consider HbA1c target range of 7.0-7.5% (Reference: Jose Bustillo et al. ALEXDA. 2012) The Sebia assay for the measurement of HbA1c is a National Glycohemoglobin Standardization Program (NGSP) certified method. Blood BLOOD SPECIMEN / Unknown Venipuncture / Unknown 06/11/2022 11:38 PM BURN TABLE OPERATOR 06/11/2022 11:54 PM BURN TABLE OPERATOR Dennis Nathan MD LAB - CHEMISTRY LOVE ADEN Performing Organization Address [facility]/ZIP Co de Phone Number [address] [address], [place] [phone] * PHOSPHORUS BLOOD (06/11/2022 11:38 PM BURN TABLE OPERATOR) Only the most recent of2 resultswithin the time period is included. Phosphorus 3.0 2.9 - 5.1 mg/dL 06/12/2022 12:27 AM BURN TABLE OPERATOR [facility] Blood BLOOD SPECIMEN / Unknown Venipuncture / Unknown 06/11/2022 11:38 PM BURN TABLE OPERATOR 06/11/2022 11:55 PM BURN TABLE OPERATOR Dennis Nathan MD LAB - CHEMISTRY LOVE ADEN Performing Organization Address [facility] Co de Phone Number [address] [address], [place] [phone] * LACTIC ACID BLOOD (06/11/2022 11:38 PM BURN TABLE OPERATOR) Lactic Acid-Stat 0.7 <=2.0 mmol/L 06/12/2022 12:21 AM BURN TABLE OPERATOR [facility] Blood BLOOD SPECIMEN / Unknown Venipuncture / Unknown 06/11/2022 11:38 PM BURN TABLE OPERATOR 06/11/2022 11:54 PM BURN TABLE OPERATOR Dennis Nathan MD LAB - CHEMISTRY LOVE ADEN [address] [address], [facility] [phone] * FOLATE (06/11/2022 11:38 PM BURN TABLE OPERATOR) Pathologist [facility] Folate 14.0 7.0 - 31.4 ng/mL 06/12/2022 12:59 AM [facility] Blood BLOOD SPECIMEN / Unknown Venipuncture / Unknown 06/11/2022 11:38 PM BURN TABLE OPERATOR 06/11/2022 11:55 PM BURN TABLE OPERATOR Dennis Nathan MD LAB - CHEMISTRY LOVE ADEN Performing Organization Address City/[facility]/ZIP Co de Phone Number [address] [address], [facility] [phone] * (ABNORMAL) IRON + TRANSFERRIN PANEL (06/11/2022 11:38 PM BURN TABLE OPERATOR) [facility] Iron 25(L) 40 - 150 ug/dL 06/12/2022 12:27 AM [facility] Transferrin 151(L) 174 - 382 mg/dL 06/12/2022 12:27 AM [facility] Transferrin Saturation % 13(L) 16 - 50 % 06/12/2022 12:27 AM [facility] TIBC Calculated 189(L) 240 - 450 ug/dL 06/12/2022 12:27 AM [facility] Blood BLOOD SPECIMEN / Unknown Venipuncture / Unknown 06/11/2022 11:38 PM BURN TABLE OPERATOR 06/11/2022 11:50 PM BURN TABLE OPERATOR Dennis Nathan MD LAB - CHEMISTRY LOVE AD[facility] [address] [address], [place] [phone] * (ABNORMAL) FERRITIN (06/11/2022 11:38 PM BURN TABLE OPERATOR) [facility] Ferritin 465(H) 13 - 204 ng/mL 06/12/2022 12:47 AM [facility] Blood BLOOD SPECIMEN / Unknown Venipuncture / Unknown 06/11/2022 11:38 PM BURN TABLE OPERATOR 06/11/2022 11:50 PM BURN TABLE OPERATOR Dennis Nathan MD LAB - CHEMISTRY LOVE AD[place] [address] [place] [address], [facility] [phone] * Rad Onc Aria Session Summary (06/08/2022 9:00 AM BURN TABLE OPERATOR) Course ID BaseofTong [id number] RAD ONC TREATMENT Course First Treatment Date 04/30/2022 8:59 AM RAD ONC TREATMENT Reference Point ID [id number] RAD ONC TREATMENT Reference Point Dosage Given to Date 60 Gy RAD ONC TREATMENT Reference Point Session Dosage Given 2 Gy RAD ONC TREATMENT Plan ID #BOT RAD ONC TREATMENT Plan Fractions Treated to Date 30 RAD ONC TREATMENT Plan Total Fractions Prescribed 35 RAD ONC TREATMENT Plan Total Prescribed Dose 7000 cGy RAD ONC TREATMENT 06/08/2022 9:00 AM BURN TABLE OPERATOR Provider Unknown RADIATION ONCOLOGY O RDERABLES RAD ONC TREATMENT * Rad Onc Aria Session Summary (06/07/2022 8:47 AM BURN TABLE OPERATOR) Course ID [facility] [id number] RAD ONC TREATMENT Course First Treatment Date 04/30/2022 8:59 AM RAD ONC TREATMENT Reference Point ID [id number] RAD ONC TREATMENT Reference Point Dosage Given to Date 58 Gy RAD ONC TREATMENT Reference Point Session Dosage Given 2 Gy RAD ONC TREATMENT Plan ID #BOT RAD ONC TREATMENT Plan Fractions Treated to Date 29 RAD ONC TREATMENT Plan Total Fractions Prescribed 35 RAD ONC TREATMENT Plan Total Prescribed Dose 7000 cGy RAD ONC TREATMENT 06/07/2022 8:47 AM BURN TABLE OPERATOR Provider Unknown RADIATION ONCOLOGY O RDERABLES RAD ONC TREATMENT * Rad Onc Aria Session Summary (06/06/2022 8:50 AM BURN TABLE OPERATOR) Course ID [facility] ue9 RAD ONC TREATMENT Course First Treatment Date 04/30/2022 8:59 AM RAD ONC TREATMENT Reference Point ID [id number] RAD ONC TREATMENT Reference Point Dosage Given to Date 56 Gy RAD ONC TREATMENT Reference Point Session Dosage Given 2 Gy RAD ONC TREATMENT Plan ID #BOT RAD ONC TREATMENT Plan Fractions Treated to Date 28 RAD ONC TREATMENT Plan Total Fractions Prescribed 35 RAD ONC TREATMENT Plan Total Prescribed Dose 7000 cGy RAD ONC TREATMENT 06/06/2022 8:50 AM BURN TABLE OPERATOR Provider Unknown RADIATION ONCOLOGY O RDERABLES Performing Organization Address City/State/[facility] Co de Phone Number RAD ONC TREATMENT * Rad Onc Aria Session Summary (06/05/2022 8:46 AM BURN TABLE OPERATOR) Course ID [facility] ue9 RAD ONC TREATMENT Course First Treatment Date 04/30/2022 8:59 AM RAD ONC TREATMENT Reference Point ID [id number] RAD ONC TREATMENT Reference Point Dosage Given to Date 54 Gy RAD ONC TREATMENT Reference Point Session Dosage Given 2 Gy RAD ONC TREATMENT Plan ID #BOT RAD ONC TREATMENT Plan Fractions Treated to Date 27 RAD ONC TREATMENT Plan Total Fractions Prescribed 35 RAD ONC TREATMENT Plan Total Prescribed Dose 7000 cGy RAD ONC TREATMENT 06/05/2022 8:46 AM BURN TABLE OPERATOR Provider Unknown RADIATION ONCOLOGY O RDERABLES Performing Organization Address [facility] Co de Phone Number RAD ONC TREATMENT * Rad Onc Aria Session Summary (06/04/2022 8:42 AM BURN TABLE OPERATOR) Course ID [facility] [id number] RAD ONC TREATMENT Course First Treatment Date 04/30/2022 8:59 AM RAD ONC TREATMENT Reference Point ID [id number] RAD ONC TREATMENT Reference Point Dosage Given to Date 52 Gy RAD ONC TREATMENT Reference Point Session Dosage Given 2 Gy RAD ONC TREATMENT Plan ID #BOT RAD ONC TREATMENT Plan Fractions Treated to Date 26 RAD ONC TREATMENT Plan Total Fractions Prescribed 35 RAD ONC TREATMENT Plan Total Prescribed Dose 7000 cGy RAD ONC TREATMENT 06/04/2022 8:42 AM BURN TABLE OPERATOR Provider Unknown RADIATION ONCOLOGY O RDERABLES RAD ONC TREATMENT * Rad Onc Aria Session Summary (06/01/2022 8:23 AM BURN TABLE OPERATOR) Course ID [facility] ue9 RAD ONC TREATMENT Course First Treatment Date 04/30/2022 8:59 AM RAD ONC TREATMENT Reference Point ID [id number] RAD ONC TREATMENT Reference Point Dosage Given to Date 50 Gy RAD ONC TREATMENT Reference Point Session Dosage Given 2 Gy RAD ONC TREATMENT Plan ID #BOT RAD ONC TREATMENT Plan Fractions Treated to Date 25 RAD ONC TREATMENT Plan Total Fractions Prescribed 35 RAD ONC TREATMENT Plan Total Prescribed Dose 7000 cGy RAD ONC TREATMENT 06/01/2022 8:23 AM BURN TABLE OPERATOR Provider Unknown RADIATION ONCOLOGY O RDERABLES RAD ONC TREATMENT * Rad Onc Aria Session Summary (05/31/2022 10:33 AM BURN TABLE OPERATOR) Course ID [facility] ue9 RAD ONC TREATMENT Course First Treatment Date 04/30/2022 8:59 AM RAD ONC TREATMENT Reference Point ID [id number] RAD ONC TREATMENT Reference Point Dosage Given to Date 48 Gy RAD ONC TREATMENT Reference Point Session Dosage Given 2 Gy RAD ONC TREATMENT Plan ID #BOT RAD ONC TREATMENT Plan Fractions Treated to Date 24 RAD ONC TREATMENT Plan Total Fractions Prescribed 35 RAD ONC TREATMENT Plan Total Prescribed Dose 7000 cGy RAD ONC TREATMENT 05/31/2022 10:3 3 AM BURN TABLE OPERATOR Provider Unknown RADIATION ONCOLOGY O RDERABLES RAD ONC TREATMENT * Rad Onc Aria Session Summary (2022 8:50 AM BURN TABLE OPERATOR) Course ID [facility] ue9 RAD ONC TREATMENT Course First Treatment Date 04/30/2022 8:59 AM RAD ONC TREATMENT Reference Point ID [id number] RAD ONC TREATMENT Reference Point Dosage Given to Date 46 Gy RAD ONC TREATMENT Reference Point Session Dosage Given 2 Gy RAD ONC TREATMENT Plan ID #BOT RAD ONC TREATMENT Plan Fractions Treated to Date 23 RAD ONC TREATMENT Plan Total Fractions Prescribed 35 RAD ONC TREATMENT Plan Total Prescribed Dose 7000 cGy RAD ONC TREATMENT 2022 8:50 AM BURN TABLE OPERATOR Provider Unknown RADIATION ONCOLOGY O RDERABLES Performing Organization Address [facility] Co de Phone Number RAD ONC TREATMENT * Rad Onc Aria Session Summary (05/29/2022 8:01 AM BURN TABLE OPERATOR) Course ID [facility] ue9/22 RAD ONC TREATMENT Course First Treatment Date 04/30/2022 8:59 AM RAD ONC TREATMENT Reference Point ID [id number] RAD ONC TREATMENT Reference Point Dosage Given to Date 44 Gy RAD ONC TREATMENT Reference Point Session Dosage Given 2 Gy RAD ONC TREATMENT Plan ID #BOT RAD ONC TREATMENT Plan Fractions Treated to Date 22 RAD ONC TREATMENT Plan Total Fractions Prescribed 35 RAD ONC TREATMENT Plan Total Prescribed Dose 7000 cGy RAD ONC TREATMENT 05/29/2022 8:01 AM BURN TABLE OPERATOR Provider Unknown RADIATION ONCOLOGY O RDERABLES Performing Organization Address [facility] Co de Phone Number RAD ONC TREATMENT * Rad Onc Aria Session Summary (05/28/2022 9:14 AM BURN TABLE OPERATOR) Course ID [facility] [id number] RAD ONC TREATMENT Course First Treatment Date 04/30/2022 8:59 AM RAD ONC TREATMENT Reference Point ID [id number] RAD ONC TREATMENT Reference Point Dosage Given to Date 42 Gy RAD ONC TREATMENT Reference Point Session Dosage Given 2 Gy RAD ONC TREATMENT Plan ID #BOT RAD ONC TREATMENT Plan Fractions Treated to Date 21 RAD ONC TREATMENT Plan Total Fractions Prescribed 35 RAD ONC TREATMENT Plan Total Prescribed Dose 7000 cGy RAD ONC TREATMENT 05/28/2022 9:14 AM BURN TABLE OPERATOR Provider Unknown RADIATION ONCOLOGY O RDERABLES Performing Organization Address City/[facility]/ZIP Co de Phone Number RAD ONC TREATMENT * Rad Onc Aria Session Summary (05/25/2022 10:08 AM CDT) Course ID [facility] ue9/22 RAD ONC TREATMENT Course First Treatment Date 04/30/2022 8:59 AM RAD ONC TREATMENT Reference Point ID [id number] RAD ONC TREATMENT Reference Point Dosage Given to Date 40 Gy RAD ONC TREATMENT Reference Point Session Dosage Given 2 Gy RAD ONC TREATMENT Plan ID #BOT RAD ONC TREATMENT Plan Fractions Treated to Date 20 RAD ONC TREATMENT Plan Total Fractions Prescribed 35 RAD ONC TREATMENT Plan Total Prescribed Dose 7000 cGy RAD ONC TREATMENT 05/25/2022 10:0 8 AM CDT Provider Unknown RADIATION ONCOLOGY O RDERABLES Performing Organization Address City/[facility]/ZIP Co de Phone Number RAD ONC TREATMENT * HEPATITIS B SURFACE ANTIBODY (05/24/2022 11:24 AM CDT) Hepatitis B Virus Surface Antibody Non-react efren Non-react efren 05/24/2022 1:47 PM CDT [facility] Comment: < 8 mIU/mL Hepatitis B surface Antibody (HBsAb). Nonreactive for HBsAb - individual is considered not immune to Hepatitis B Virus infection. Hepatitis B Surface Antibody Quantitative 0.3 <8.0 mIU/mL 05/24/2022 1:47 PM CDT [facility] Comment: Hepatitis B Surface Antibody Numeric Result Interpretation: Nonreactive: <8.0 mIU/mL Indeterminate: 8.0 - 12.0 mIU/mL Reactive: >12.0 mIU/mL Blood BLOOD SPECIMEN / Unknown Lab Venipuncture / Unknown 05/24/2022 11:24 AM CDT 05/24/2022 11:38 AM CDT Dennis Nathan MD LAB - CHEMISTRY [facility] Performing Organization Address City/[facility]/ZIP Co de Phone Number [address] [id number] [phone] * HEPATITIS B CORE ANTIBODY TOTAL (05/24/2022 11:24 AM CDT) HBc Antibody Total Non-reacti ve Non-reacti ve 05/24/2022 1:47 PM CDT [facility] Blood BLOOD SPECIMEN / Unknown Lab Venipuncture / Unknown 05/24/2022 11:24 AM CDT 05/24/2022 11:38 AM CDT Dennis Nathan MD LAB - CHEMISTRY [facility] [address] [address], [place] [phone] * HEPATITIS B SURFACE ANTIGEN W RFLX CONFIRMATION (05/24/2022 11:24 AM CDT) Hepatitis B Virus Surface Antigen Non-reacti ve Non-reacti ve 05/24/2022 1:47 PM CDT [facility] Blood BLOOD SPECIMEN / Unknown Lab Venipuncture / Unknown 05/24/2022 11:24 AM CDT 05/24/2022 11:38 AM CDT Dennis Nathan MD LAB - CHEMISTRY [facility] Performing Organization Address City/[facility]/ZIP Co de Phone Number [address] [address], [facility] [phone] * Rad Onc Aria Session Summary (05/24/2022 10:48 AM CDT) Course ID [facility] [id number] RAD ONC TREATMENT Course First Treatment Date 04/30/2022 8:59 AM RAD ONC TREATMENT Reference Point ID [id number] RAD ONC TREATMENT Reference Point Dosage Given to Date 38 Gy RAD ONC TREATMENT Reference Point Session Dosage Given 2 Gy RAD ONC TREATMENT Plan ID #BOT RAD ONC TREATMENT Plan Fractions Treated to Date 19 RAD ONC TREATMENT Plan Total Fractions Prescribed 35 RAD ONC TREATMENT Plan Total Prescribed Dose 7000 cGy RAD ONC TREATMENT 05/24/2022 10:4 8 AM CDT Provider Unknown RADIATION ONCOLOGY O RDERABLES RAD ONC TREATMENT * Rad Onc Aria Session Summary (05/23/2022 7:56 AM CDT) Course ID [facility] ue9/22 RAD ONC TREATMENT Course First Treatment Date 04/30/2022 8:59 AM RAD ONC TREATMENT Reference Point ID [id number] RAD ONC TREATMENT Reference Point Dosage Given to Date 36 Gy RAD ONC TREATMENT Reference Point Session Dosage Given 2 Gy RAD ONC TREATMENT Plan ID #BOT RAD ONC TREATMENT Plan Fractions Treated to Date 18 RAD ONC TREATMENT Plan Total Fractions Prescribed 35 RAD ONC TREATMENT Plan Total Prescribed Dose 7000 cGy RAD ONC TREATMENT 05/23/2022 7:56 AM CDT Provider Unknown RADIATION ONCOLOGY O RDERABLES RAD ONC TREATMENT * Rad Onc Aria Session Summary (05/22/2022 8:42 AM CDT) Course ID [facility] ue9/22 RAD ONC TREATMENT Course First Treatment Date 04/30/2022 8:59 AM RAD ONC TREATMENT Reference Point ID [id number] RAD ONC TREATMENT Reference Point Dosage Given to Date 34 Gy RAD ONC TREATMENT Reference Point Session Dosage Given 2 Gy RAD ONC TREATMENT Plan ID #BOT RAD ONC TREATMENT Plan Fractions Treated to Date 17 RAD ONC TREATMENT Plan Total Fractions Prescribed 35 RAD ONC TREATMENT Plan Total Prescribed Dose 7000 cGy RAD ONC TREATMENT 05/22/2022 8:42 AM CDT Provider Unknown RADIATION ONCOLOGY O RDERABLES RAD ONC TREATMENT * Rad Onc Aria Session Summary (05/21/2022 9:28 AM CDT) Course ID [facility] ue9/22 RAD ONC TREATMENT Course First Treatment Date 04/30/2022 8:59 AM RAD ONC TREATMENT Reference Point ID [id number] RAD ONC TREATMENT Reference Point Dosage Given to Date 32 Gy RAD ONC TREATMENT Reference Point Session Dosage Given 2 Gy RAD ONC TREATMENT Plan ID #BOT RAD ONC TREATMENT Plan Fractions Treated to Date 16 RAD ONC TREATMENT Plan Total Fractions Prescribed 35 RAD ONC TREATMENT Plan Total Prescribed Dose 7000 cGy RAD ONC TREATMENT 05/21/2022 9:28 AM CDT Provider Unknown RADIATION ONCOLOGY O RDERABLES RAD ONC TREATMENT * Rad Onc Aria Session Summary (05/18/2022 9:46 AM CDT) Course ID [facility] [id number] RAD ONC TREATMENT Course First Treatment Date 04/30/2022 8:59 AM RAD ONC TREATMENT Reference Point ID [id number] RAD ONC TREATMENT Reference Point Dosage Given to Date 30 Gy RAD ONC TREATMENT Reference Point Session Dosage Given 2 Gy RAD ONC TREATMENT Plan ID #BOT RAD ONC TREATMENT Plan Fractions Treated to Date 15 RAD ONC TREATMENT Plan Total Fractions Prescribed 35 RAD ONC TREATMENT Plan Total Prescribed Dose 7000 cGy RAD ONC TREATMENT 05/18/2022 9:46 AM CDT Provider Unknown RADIATION ONCOLOGY O RDERABLES RAD ONC TREATMENT * Rad Onc Aria Session Summary (05/17/2022 9:36 AM CDT) Course ID [facility] [id number] RAD ONC TREATMENT Course First Treatment Date 04/30/2022 8:59 AM RAD ONC TREATMENT Reference Point ID [id number] RAD ONC TREATMENT Reference Point Dosage Given to Date 28 Gy RAD ONC TREATMENT Reference Point Session Dosage Given 2 Gy RAD ONC TREATMENT Plan ID #BOT RAD ONC TREATMENT Plan Fractions Treated to Date 14 RAD ONC TREATMENT Plan Total Fractions Prescribed 35 RAD ONC TREATMENT Plan Total Prescribed Dose 7000 cGy RAD ONC TREATMENT 05/17/2022 9:36 AM CDT Provider Unknown RADIATION ONCOLOGY O RDERABLES RAD ONC TREATMENT * Rad Onc Aria Session Summary (05/16/2022 9:41 AM CDT) Course ID [facility] [id number] RAD ONC TREATMENT Course First Treatment Date 04/30/2022 8:59 AM RAD ONC TREATMENT Reference Point ID [id number] RAD ONC TREATMENT Reference Point Dosage Given to Date 26 Gy RAD ONC TREATMENT Reference Point Session Dosage Given 2 Gy RAD ONC TREATMENT Plan ID #BOT RAD ONC TREATMENT Plan Fractions Treated to Date 13 RAD ONC TREATMENT Plan Total Fractions Prescribed 35 RAD ONC TREATMENT Plan Total Prescribed Dose 7000 cGy RAD ONC TREATMENT 05/16/2022 9:41 AM CDT Provider Unknown RADIATION ONCOLOGY O RDERABLES Performing Organization Address [facility]/State/ZIP Co de Phone Number RAD ONC TREATMENT * Rad Onc Aria Session Summary (05/15/2022 9:35 AM CDT) Course ID [facility] [id number] RAD ONC TREATMENT Course First Treatment Date 04/30/2022 8:59 AM RAD ONC TREATMENT Reference Point ID [id number] RAD ONC TREATMENT Reference Point Dosage Given to Date 24 Gy RAD ONC TREATMENT Reference Point Session Dosage Given 2 Gy RAD ONC TREATMENT Plan ID #BOT RAD ONC TREATMENT Plan Fractions Treated to Date 12 RAD ONC TREATMENT Plan Total Fractions Prescribed 35 RAD ONC TREATMENT Plan Total Prescribed Dose 7000 cGy RAD ONC TREATMENT 05/15/2022 9:35 AM CDT Provider Unknown RADIATION ONCOLOGY O RDERABLES Performing Organization Address [facility] Co de Phone Number RAD ONC TREATMENT * Rad Onc Aria Session Summary (05/14/2022 9:35 AM CDT) Course ID [facility] ue9 RAD ONC TREATMENT Course First Treatment Date 04/30/2022 8:59 AM RAD ONC TREATMENT Reference Point ID [id number] RAD ONC TREATMENT Reference Point Dosage Given to Date 22 Gy RAD ONC TREATMENT Reference Point Session Dosage Given 2 Gy RAD ONC TREATMENT Plan ID #BOT RAD ONC TREATMENT Plan Fractions Treated to Date 11 RAD ONC TREATMENT Plan Total Fractions Prescribed 35 RAD ONC TREATMENT Plan Total Prescribed Dose 7000 cGy RAD ONC TREATMENT 05/14/2022 9:35 AM CDT Provider Unknown RADIATION ONCOLOGY O RDERABLES RAD ONC TREATMENT * IR MAXIMUS CATH INSERT (05/11/2022 12:14 PM CDT) Anatomical Region Laterality Modality Chest X-Ray Angiograph y 05/25/2022 2:29 PM CDT Impressions 05/25/2022 2:34 PM CDT IMPRESSION: Successful image guided implantation of a single-lumen chest power port via the right internal jugular vein. Catheter trimmed at 20 cm. Note: The chest port can be used now. Keep the dressing clean and dry for 5 days to minimize infection and allow better healing. I, Dr. Nick Calero, was present and performed/supervised the entire procedure. Moderate sedation on this adult patient was ordered by me, administered intravenously in my presence, and monitored by the procedure nurse as an independent trained observer who was present throughout the procedure. The following parameters were monitored: oxygen saturation, heart rate, blood pressure, and response to care. Intra-service sedation start time was 1215 hours and end time was 1227 hours during which I was present. For details on pre moderate sedation and post moderate sedation patient evaluation, please review the evaluation forms in [facility]. For details on monitored clinical parameters during the intra-service sedation time, please review the procedure nurse documentation in [facility]. > Interpreting Provider: Joe Persaud MD on 05/25/2022 2:34 PM Narrative 05/25/2022 2:34 PM CDT Procedure: Image guided port implementation. 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 Postprocedure diagnosis: Same. Attending: Joe Persaud M.D. Anesthesia: Local anesthesia - 20 mL of 1% lidocaine with epinephrine Intravenous conscious sedation: Versed 1 mg and Fentanyl 50 mcg Other medications: None. Consent: The procedure, risks, and possible complications were explained to the patient in detail and informed consent was obtained. Procedure/findings: The patient was placed supine on the angiography table. Patency of the right internal jugular vein was confirmed and documented with ultrasound and color Doppler ultrasound imaging. The RIGHT anterolateral aspect of the neck and rightupper chest were prepped and draped in the usual sterile manner. After infiltration of the skin soft tissues with 1% lidocaine, the right internal jugular vein was punctured using a 21-gauge needle under direct ultrasound visualization. Using standard Seldinger technique a 5 Austrian vascular dilator was inserted. Working through the vascular dilator a guidewire was successfully manipulated across the right atrium into the inferior vena cava without difficulty. The guidewire was secured using a flow-switch device. Next, the skin soft tissues in the right upper chest wall were infiltrated with 1% lidocaine. A small skin incision was made approximately 2 fingerbreadths caudal to the clavicle. A subcutaneous pocket was created using blunt dissection. A single lumen catheter was tunneled under the skin from the chest incision to the neck puncture site using a metallic cannula. Catheter was trimmed and 20 cm. Catheter was attached to the single lumen port which was placed in the previously created subcutaneous pocket on the anterior upper chest wall. The indwelling vascular dilator was exchanged over the guidewire for a peel-away sheath. Working through peel-away sheath the tunneled catheter was advanced without difficulty placing the tip in the right atrium. Peel-away sheath was removed. Position of the catheter confirmed under real-time fluoroscopy. The port was tested aspirating and flushing without difficulty. The port was packed with 500 units of heparin. Next, the skin incision was approximated using 3-0 Vicryl suture. The cutaneous plane was approximated using skin glue. Procedure was ended. Patient tolerated well the procedure. Complications: None. EBL: Minimal. DISPOSITION: To recovery in good condition. Fluoroscopic time: 0.1 minutes Procedure Note Joe Persaud MD - 05/25/2022 Procedure: Image guided port implementation. 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 Postprocedure diagnosis: Same. Attending: Joe Persaud M.D. Anesthesia: Local anesthesia - 20 mL of 1% lidocaine with epinephrine Intravenous conscious sedation: Versed 1 mg and Fentanyl 50 mcg Other medications: None. Consent: The procedure, risks, and possible complications were explainedto the patient in detail and informed consent was obtained. Procedure/findings: The patient was placed supine on the angiographytable. Patency of the right internal jugular vein was confirmed and documented with ultrasound and color Doppler ultrasound imaging. The RIGHT anterolateral aspect of the neck and rightupper chest were prepped and draped in the usual sterile manner. After infiltration of the skin soft tissues with 1% lidocaine, the right internal jugular vein was punctured using a 21-gauge needle under direct ultrasound visualization. Using standard Seldinger technique a 5 Austrian vascular dilator was inserted. Working through the vascular dilator a guidewire was successfully manipulated across the right atrium into the inferior vena cava without difficulty. The guidewire was secured using a flow-switch device. Next,the skin soft tissues in the right upper chest wall were infiltrated with 1% lidocaine. A small skin incision was made approximately 2 fingerbreadths caudal to the clavicle. A subcutaneous pocket was created using blunt dissection. A single lumen catheter was tunneled under the skin from the chest incision to the neck puncture site using a metallic cannula.Catheter was trimmed and 20 cm. Catheter was attached to the single lumen portwhich was placed in the previously created subcutaneous pocket on the anterior upper chest wall. The indwelling vascular dilator was exchanged over the guidewire for a peel-away sheath. Working through peel-away sheath the tunneled catheter was advanced without difficulty placing the tip in the right atrium. Peel-away sheath was removed. Position of the catheter confirmed under real-time fluoroscopy. The port was tested aspiratingand flushing without difficulty. The port was packed with 500 units of heparin. Next, the skin incision was approximated using 3-0 Vicrylsuture. The cutaneous plane was approximated using skin glue. Procedure wasended. Patient tolerated well the procedure. Complications: None. EBL: Minimal. DISPOSITION: To recovery in good condition. Fluoroscopic time: 0.1 minutes IMPRESSION: Successful image guided implantation of a single-lumen chest power port via the right internal jugular vein. Catheter trimmed at 20 cm. Note: The chest port can be used now. Keep the dressing clean and dry for5 days to minimize infection and allow better healing. I, Dr. Nick Calero, was present and performed/supervisedthe entire procedure. Moderate sedation on this adult patient was ordered by me, administered intravenously in my presence, and monitored by the procedure nurse as an independent trained observer who was present throughout the procedure. The following parameters were monitored:oxygen saturation, heart rate, blood pressure, and response to care.Intra-service sedation start time was 1215 hours and end time was 1227 hours duringwhich I was present. For details on pre moderate sedation and post moderate sedation patient evaluation, please review the evaluation forms in [facility]. For details on monitored clinical parameters during the intra-service sedation time, please review the procedure nurse documentation in [facility]. > Interpreting Provider: Joe ePrsaud MD on 05/25/2022 2:34PM Dennis Nathan MD IR ORDERABLES * Rad Onc Aria Session Summary (05/11/2022 9:29 AM CDT) Pathologist [facility] [place] Course ID [facility] ue9/22 RAD ONC TREATMENT Course First Treatment Date 04/30/2022 8:59 AM RAD ONC TREATMENT Reference Point ID [id number] RAD ONC TREATMENT Reference Point Dosage Given to Date 20 Gy RAD ONC TREATMENT Reference Point Session Dosage Given 2 Gy RAD ONC TREATMENT Plan ID #BOT RAD ONC TREATMENT Plan Fractions Treated to Date 10 RAD ONC TREATMENT Plan Total Fractions Prescribed 35 RAD ONC TREATMENT Plan Total Prescribed Dose 7000 cGy RAD ONC TREATMENT 05/11/2022 9:29 AM CDT Provider Unknown RADIATION ONCOLOGY O RDERABLES Performing Organization Address [facility] de Phone Number RAD ONC TREATMENT * Rad Onc Aria Session Summary (05/10/2022 9:31 AM CDT) Course ID [facility] ue9/22 RAD ONC TREATMENT Course First Treatment Date 04/30/2022 8:59 AM RAD ONC TREATMENT Reference Point ID [id number] RAD ONC TREATMENT Reference Point Dosage Given to Date 18 Gy RAD ONC TREATMENT Reference Point Session Dosage Given 2 Gy RAD ONC TREATMENT Plan ID #BOT RAD ONC TREATMENT Plan Fractions Treated to Date 9 RAD ONC TREATMENT Plan Total Fractions Prescribed 35 RAD ONC TREATMENT Plan Total Prescribed Dose 7000 cGy RAD ONC TREATMENT 05/10/2022 9:31 AM CDT Provider Unknown RADIATION ONCOLOGY O RDERABLES Performing Organization Address [facility] de Phone Number RAD ONC TREATMENT * Rad Onc Aria Session Summary (05/09/2022 9:22 AM CDT) Course ID [facility] [id number] RAD ONC TREATMENT Course First Treatment Date 04/30/2022 8:59 AM RAD ONC TREATMENT Reference Point ID [id number] RAD ONC TREATMENT Reference Point Dosage Given to Date 16 Gy RAD ONC TREATMENT Reference Point Session Dosage Given 2 Gy RAD ONC TREATMENT Plan ID #BOT RAD ONC TREATMENT Plan Fractions Treated to Date 8 RAD ONC TREATMENT Plan Total Fractions Prescribed 35 RAD ONC TREATMENT Plan Total Prescribed Dose 7000 cGy RAD ONC TREATMENT 05/09/2022 9:22 AM CDT Provider Unknown RADIATION ONCOLOGY O RDERABLES RAD ONC TREATMENT * Rad Onc Aria Session Summary (05/08/2022 9:47 AM CDT) Course ID [place] ue9/22 RAD ONC TREATMENT Course First Treatment Date 04/30/2022 8:59 AM RAD ONC TREATMENT Reference Point ID [id number] RAD ONC TREATMENT Reference Point Dosage Given to Date 14 Gy RAD ONC TREATMENT Reference Point Session Dosage Given 2 Gy RAD ONC TREATMENT Plan ID #BOT RAD ONC TREATMENT Plan Fractions Treated to Date 7 RAD ONC TREATMENT Plan Total Fractions Prescribed 35 RAD ONC TREATMENT Plan Total Prescribed Dose 7000 cGy RAD ONC TREATMENT 05/08/2022 9:47 AM CDT Provider Unknown RADIATION ONCOLOGY O RDERABLES RAD ONC TREATMENT * (ABNORMAL) URINALYSIS REFLEX TO MICROSCOPIC NO CULTURE (05/07/2022 12:11 PM CDT) Color UA Straw Straw, Yellow 05/07/2022 12:49 PM CDT [facility] Clarity UA Clear Clear 05/07/2022 12:49 PM T [facility] Specific [place] UA 1.009 1.005 - 1.030 05/07/2022 12:49 PM [facility] pH UA 5.0 5.0 - 8.0 pH 05/07/2022 12:[address] [facility] Protein UA Negative Negative 05/07/2022 12:[address] [facility] Glucose UA 3+(A) Negative 05/07/2022 12:[address] [facility] Ketone UA Negative Negative 05/07/2022 12:[address] [facility] Bilirubin UA Negative Negative 05/07/2022 12:[address] [facility] Blood UA Negative Negative 05/07/2022 12:[address] [facility] Nitrite UA Negative Negative 05/07/2022 12:[address] [facility] Leukocyte Esterase 1+(A) Negative 05/07/2022 12:49 PM [facility] Urobilinogen UA Negative Negative mg/dL 05/07/2022 12:[address] [facility] RBC UA 3-5 None Seen, 0-2, 3-5 /HPF 05/07/2022 12:49 PM CDT [facility] WBC UA 11-20(A) None Seen, 0-5 /HPF 05/07/2022 12:49 PM CDT [facility] Bacteria UA 1+(A) None /HPF 05/07/2022 12:49 PM CDT [facility] Squamous Epithelial Cells UA 0-2 None Seen, 0-2, 3-5 /HPF 05/07/2022 12:49 PM CDT [facility] Mucus UA 1+ /LPF 05/07/2022 12:49 PM CDT [facility] Urine URINE SPECIMEN OBTAINED BY CLEAN CATCH PROCEDURE / Unknown Collection / Unknown 05/07/2022 12:11 PM CDT 05/07/2022 12:38 PM CDT [facility] - 05/07/2022 12:49 PM CDT Dennis Nathan MD LAB - URINALYSIS ORD ERABLES Performing Organization Address City/State/[facility] Co de Phone Number [facility] [address] [place] [phone], [facility] [phone] * (ABNORMAL) CULTURE URINE (05/07/2022 12:11 PM CDT) Pathologist [facility] Culture Urine 50,000-100,000 CFU/mL Klebsiella oxytoca(A) SARIAH 05/08/2022 10:46 PM CDT [facility] Urine URINE SPECIMEN OBTAINED BY CLEAN CATCH PROCEDURE / Unknown Collection / Unknown 05/07/2022 12:11 PM CDT 05/07/2022 12:38 PM CDT Narrative Organism Antibiotic Method Susceptibility Klebsiella oxytoca Amikacin SARIAH <=2 ug/mL: Susceptible Klebsiella oxytoca Ampicillin-sulbactam SARIAH 8 ug/mL: Susceptible Klebsiella oxytoca Cefepime SARIAH <=1 ug/mL: Susceptible Klebsiella oxytoca Ceftriaxone SARIAH <=1 ug/mL: Susceptible Klebsiella oxytoca Ciprofloxacin SARIAH <=0.25 ug/mL: Susceptible Klebsiella oxytoca Extended-Spectrum Beta-Lactamase SARIAH NEG ug/mL: Neg Klebsiella oxytoca Gentamicin SARIAH <=1 ug/mL: Susceptible Klebsiella oxytoca Meropenem SARIAH <=0.25 ug/mL: Susceptible Klebsiella oxytoca Nitrofurantoin SARIAH 64 ug/mL: Intermediate Klebsiella oxytoca Piperacillin-tazobactam SARIAH <=4 ug/mL: Susceptible Klebsiella oxytoca Tobramycin SARIAH <=1 ug/mL: Susceptible Klebsiella oxytoca Trimethoprim-sulfamethoxazole SARIAH <=20 ug/mL: Susceptible Dennis Nathan MD LAB - MICROBIOLOGY O RDERABLES Performing Organization Address City/[facility]/ZIP Co de Phone Number [facility] [address] [place] [address], [facility] [phone] * Rad Onc Aria Session Summary (05/07/2022 9:35 AM CDT) Course ID BaseofTong ue04/12 RAD ONC TREATMENT Course First Treatment Date 04/30/2022 8:59 AM RAD ONC TREATMENT Reference Point ID [id number] RAD ONC TREATMENT Reference Point Dosage Given to Date 12 Gy RAD ONC TREATMENT Reference Point Session Dosage Given 2 Gy RAD ONC TREATMENT Plan ID #BOT RAD ONC TREATMENT Plan Fractions Treated to Date 6 RAD ONC TREATMENT Plan Total Fractions Prescribed 35 RAD ONC TREATMENT Plan Total Prescribed Dose 7000 cGy RAD ONC TREATMENT 05/07/2022 9:35 AM CDT Provider Unknown RADIATION ONCOLOGY O RDERABLES Performing Organization Address [facility] Phone Number RAD ONC TREATMENT * Rad Onc Aria Session Summary (05/04/2022 9:35 AM CDT) Course ID BaseofTong ue9 RAD ONC TREATMENT Course First Treatment Date 04/30/2022 8:59 AM RAD ONC TREATMENT Reference Point ID [id number] RAD ONC TREATMENT Reference Point Dosage Given to Date 10 Gy RAD ONC TREATMENT Reference Point Session Dosage Given 2 Gy RAD ONC TREATMENT Plan ID #BOT RAD ONC TREATMENT Plan Fractions Treated to Date 5 RAD ONC TREATMENT Plan Total Fractions Prescribed 35 RAD ONC TREATMENT Plan Total Prescribed Dose 7000 cGy RAD ONC TREATMENT 05/04/2022 9:35 AM CDT Provider Unknown RADIATION ONCOLOGY O RDERABLES Performing Organization Address City/State/[facility] Co de Phone Number RAD ONC TREATMENT * Rad Onc Aria Session Summary (05/03/2022 9:53 AM CDT) Course ID Steveg ue9 RAD ONC TREATMENT Course First Treatment Date 04/30/2022 8:59 AM RAD ONC TREATMENT Reference Point ID [id number] RAD ONC TREATMENT Reference Point Dosage Given to Date 8 Gy RAD ONC TREATMENT Reference Point Session Dosage Given 2 Gy RAD ONC TREATMENT Plan ID #BOT RAD ONC TREATMENT Plan Fractions Treated to Date 4 RAD ONC TREATMENT Plan Total Fractions Prescribed 35 RAD ONC TREATMENT Plan Total Prescribed Dose 7000 cGy RAD ONC TREATMENT 05/03/2022 9:53 AM CDT Provider Unknown RADIATION ONCOLOGY O RDERABLES RAD ONC TREATMENT * Rad Onc Aria Session Summary (05/02/2022 9:35 AM CDT) Course ID BaseofKjg ue9 RAD ONC TREATMENT Course First Treatment Date 04/30/2022 8:59 AM RAD ONC TREATMENT Reference Point ID [id number] RAD ONC TREATMENT Reference Point Dosage Given to Date 6 Gy RAD ONC TREATMENT Reference Point Session Dosage Given 2 Gy RAD ONC TREATMENT Plan ID #BOT RAD ONC TREATMENT Plan Fractions Treated to Date 3 RAD ONC TREATMENT Plan Total Fractions Prescribed 35 RAD ONC TREATMENT Plan Total Prescribed Dose 7000 cGy RAD ONC TREATMENT 05/02/2022 9:3 5 AM CDT Provider Unknown RADIATION ONCOLOGY O RDERABLES RAD ONC TREATMENT * Rad Onc Aria Session Summary (05/01/2022 9:28 AM CDT) Course ID BaseofKjg ue9 RAD ONC TREATMENT Course First Treatment Date 04/30/2022 8:59 AM RAD ONC TREATMENT Reference Point ID [id number] RAD ONC TREATMENT Reference Point Dosage Given to Date 4 Gy RAD ONC TREATMENT Reference Point Session Dosage Given 2 Gy RAD ONC TREATMENT Plan ID #BOT RAD ONC TREATMENT Plan Fractions Treated to Date 2 RAD ONC TREATMENT Plan Total Fractions Prescribed 35 RAD ONC TREATMENT Plan Total Prescribed Dose 7000 cGy RAD ONC TREATMENT 05/01/2022 9:28 AM CDT Provider Unknown RADIATION ONCOLOGY O RDERABLES Performing Organization Address City/[facility] de Phone Number RAD ONC TREATMENT * Rad Onc Aria Session Summary (04/30/2022 9:05 AM CDT) Course ID BaseofKjg ue9/22 RAD ONC TREATMENT Course First Treatment Date 04/30/2022 8:59 AM RAD ONC TREATMENT Reference Point ID [id number] RAD ONC TREATMENT Reference Point Dosage Given to Date 2 Gy RAD ONC TREATMENT Reference Point Session Dosage Given 2 Gy RAD ONC TREATMENT Plan ID #BOT RAD ONC TREATMENT Plan Fractions Treated to Date 1 RAD ONC TREATMENT Plan Total Fractions Prescribed 35 RAD ONC TREATMENT Plan Total Prescribed Dose 7000 cGy RAD ONC TREATMENT 04/30/2022 9:05 AM CDT Provider Unknown RADIATION ONCOLOGY O RDERABLES Performing Organization Address [facility] Co de Phone Number RAD ONC TREATMENT * [place] LARYNGOSCOPY,FLEX FIBER,DIAGNOSTIC (04/04/2022 9:50 AM CDT) Narrative Mykel Heller MD - 04/04/2022 9:50 AM CDT Mykel Heller MD 04/04/2022 4:40 PM Procedure Note Endoscopy Type: Laryngoscopy without stroboscopy Endoscope: Flexible 4mm Scope Anesthesia: Lidocaine 2% and Neosynephrine 1/2% (nasal) Procedure Details: The patient was sitting upright in a chair with the head in a slightly anterior sniffing position. The topical anesthesia was administered and then adequate time was allowed for an anesthetic effect. The endoscope was passed thru the bilateral nasal cavities. The tip of the endoscope was positioned in the oropharynx which allowed a complete view of the base of tongue, vallecula, pyriform recesses, epiglottis, bilateral true and false vocal folds, the interarytenoid and post cricoid region, and the immediate subglottis. Findings: The nasal cavity contained no masses. Mucus membranes moist. There were no masses in the nasopharynx. There was a mucosal mass involving the mid tongue base and appears to extend into vallecula. Lingual surface of epiglottis also seems to bulge with phonation. The true vocal cords were visualized and mobile bilaterally. There were no masses or mucosal lesions in the hypopharynx Condition: Stable. Patient tolerated procedure well. Complications: None The attending was present for and participated in critical portions of the entirety of the procedure. Balbir Carrillo MD PROCEDURE/MINOR SURG ICAL ORDERABLES Care Teams Phototypesetting Equipment Monitor Relationship Specialty Start Date End Date Mariana Khan MD [address] [place] [address] PCP - General Family Medicine 04/04/22
--- OUTSIDE RECORDS SUMMARY | 2024-09-25 00:35 | XMS_ITS ---
Author Organization [facility] Address [address] [place], [place] [id number] Care Team Providers Care Stone And Plate Preparer Apprentice Name Role Phone Jimmynayareggiesimi Mariana Unavailable Unavailable RAFFI MORA Unavailable [phone] Allergies Allergen (clinical drug ingredient) Drug/Non Drug Allergy documented on EMR Reaction Allergy Type Onset Date Status Product containing sulfonamide (product) (uncoded) Unknown Allergy 09/03/2022 active REASON FOR VISIT Patient presents for at-risk foot care . The patient has painful toenails that are causing difficulty with ambulation and shoegear. The onset is gradual. The patient has diabetes mellitus Encounters Encounter Location Date Provider Diagnosis [facility] [address] [place], [place] [id number] 05/11/2024 RAFFI MORA Tinea unguium B35.1 ; Pain in right toe(s) M79.674 ; Pain in left toe(s) M79.675 ; Atherosclerosis of [place] arteries of extremities with intermittent claudication, bilateral legs I70.213 and Type 2 diabetes mellitus with other circulatory complications E11.59 Assessments Encounter Date Diagnosis (ICD Code) Assessment Notes Treatment Notes Treatment Clinical Notes Section Notes 05/11/2024 Tinea unguium (ICD-10 - B35.1) NAIL DEBRIDEMENT: Nails 1-5 Bilateral were debrided extensively with nail nippers and emery board, reducing length and girth to pink healthy tissue with any subungual debris and necrotic tissue removed 05/11/2024 Pain in right toe(s) (ICD-10 - M79.674) 05/11/2024 Pain in left toe(s) (ICD-10 - M79.675) 05/11/2024 Atherosclerosis of [place] arteries of extremities with intermittent claudication, bilateral legs (ICD-10 - I70.213) 05/11/2024 Type 2 diabetes mellitus with other circulatory complications (ICD-10 - E11.59) Diabetic Foot Care: The patient was educated on diabetes and the lower extremity. The patient was instructed to check his feet daily to report any problems or signs of infection immediately. The patient was provided written information on Diabetic Foot Care as well as the Amputation Prevention Guide. Plan Of Treatment Treatment Notes Assessment Notes Tinea unguium NAIL DEBRIDEMENT: Na ils 1-5 Bilateral were debrided extensively with nail nippers and emery board, reducing length and girth to pink healthy tissue with any subungual debris and necrotic tissue removed Type 2 diabetes mellitus wit h other circulatory complications Diabetic Foot Care: The patient was educated on diabetes and the lower extremity. The patient was instructed to check his feet daily to report any problems or signs of infection immediately. The patient was provided written information on Diabetic Foot Care as well as the Amputation Prevention Guide. Next Appt Details Follow Up: 10 - 12 weeks, Re ason: At-Risk Foot care, sooner if problems develop. Provider Name:RAFFI MORA, 01:00:00 PM, [address], [address], [phone], Progress Notes * TERRY WAGNEROB:1945 (78 yo F)Acc No.[id number]:05/11/2024 Patient: IAM VILLAFANA Provider: Mukul Mora DPM :1945 A ge:78 Y S ex:Female Date:05/11/2024 Address:[address] [place], [place] [id number] Subjective: * Chief Complaints: * 1 . Patient presents for at-risk foot care . The patient has painful toenails that are causing difficulty with ambulation and shoegear. The onset is gradual. The patient has diabetes mellitus. * HPI: H PI: General care P atient presents to the office for diabetic foot care. Patient states that their nails are thickened, elongated and painful. Patient states that it is aggravated by shoe gear. Onset is gradual., Patient denies taking blood thinners., Date last seen by Dr. Khan was 03/2024., Initials [facility] , Patient presents to the office for diabetic foot care. Patient states that their nails are thickened, elongated and painful. Patient states that it is aggravated by shoe gear. Onset is gradual., Patient denies taking blood thinners., Date last seen by Dr. Rosa was November 2023., Initials JR. * Medical History: * Allergies: P roduct containing sulfonamide (product): Allergy - Onset Date 09/03/2022. Objective: * Vitals: * Examination: P hysical Examination: General appearance: A lert, pleasant, well-nourished and in no acute distress. D ermatologic: Skin findings: S kin is thin, atrophic and lacking pedal hair. Nail pathology: N ails 1, 2, 3, 4, and 5 bilateral are elongated, thick, discolored, and dystrophic with subungual debris. They are painful to palpation. ? V ascular: Dorsalis pedis pulse: 1 /4 b ilateral. Posterior tibial pulse: 0 /4 bilateral. Capillary refill: g reater than 3 seconds. Edema: N o edema bilateral. N eurologic: Gross sensation G rossly intact to light touch. There is negative Tinel's sign. M usculoskeletal: Muscle Strength M uscle strength is 5/5 in regards to dorsiflexion, plantarflexion, inversion, and eversion in bilateral lower extremities. ? Assessment: * Assessment: 1. T inea unguium - B35.1 (Primary) 2 . P ain in right toe(s) - M79.674? 3. P ain in left toe(s) - M79.675 4 . A therosclerosis of [place] arteries of extremities with intermittent claudication, bilateral legs - I70.213 5 . T ype 2 diabetes mellitus with other circulatory complications - E11.59 Plan: * Treatment: 2. T ype 2 diabetes mellitus with other circulatory complications Notes: Diabetic Foot Care: The patient was educated on diabetes and the lower extremity. The patient was instructed to check his feet daily to report any problems or signs of infection immediately. The patient was provided written information on Diabetic Foot Care as well as the Amputation Prevention Guide. * Procedure Codes: 1 1721 DEBRIDE NAIL, 6 OR MORE, Modifiers: Q8 * Follow Up: 1 0 - 12 weeks (Reason: At-Risk Foot care, sooner if problems develop.) * Billing Information: * Visit Code: * Procedure Codes: 72616 DEBRIDE NAIL, 6 OR MORE. Modifiers: Q8 * Sign off status: Completed true * Provider: Mukul Mora DPM Date: 1 Generated for Joana spence/Anny/Matildaitting on: 0 09/25/2024 12:35 AM CREATIVE ENGAGEMENT DIRECTOR History and Physical Notes * HPI (History of Present Illness) Category Sub-Category Detail Notes Category Not es HPI General care Patient presents to the office for diabetic foot care. Patient states that their nails are thickened, elongated and painful. Patient states that it is aggravated by shoe gear. Onset is gradual., Patient denies taking blood thinners., Date last seen by Dr. Khan was 03/2024., Initials mca , Patient presents to the office for diabetic foot care. Patient states that their nails are thickened, elongated and painful. Patient states that it is aggravated by shoe gear. Onset is gradual., Patient denies taking blood thinners., Date last seen by Dr. Rosa was November 2023., Initials JR Examination Category Sub-Category Detail Notes Category Not es Dermatologic Skin findings: Skin is thin, at rophic and lacking pedal hair Nail pathology: Nails 1, 2, 3, 4, an d 5 bilateral are elongated, thick, discolored, and dystrophic with subungual debris. They are painful to palpation Neurologic Gross sensation Grossly intact t o light touch. There is negative Tinel's sign Vascular Dorsalis pedis pulse: 1/4 bilateral Edema: No edema bilateral Capillary refill: greater than 3 secon ds Posterior tibial pulse: 0/4 bilateral Physical Examination General appearance: Alert, pleasant, well-nourished and in no acute distress Musculoskeletal Muscle Strength Muscle strength is 5/5 in regards to dorsiflexion, plantarflexion, inversion, and eversion in bilateral lower extremities
--- OUTSIDE RECORDS SUMMARY | 2024-09-25 00:35 | XMS_ITS ---
Author Organization [facility] Address [address] [place], [place] [id number] Care Team Providers Care Radioactivity Technician Name Role Phone AngelicaMariana taylor Unavailable Unavailable RAFFI MORA Unavailable [phone] Allergies Allergen (clinical drug ingredient) Drug/Non Drug Allergy documented on EMR Reaction Allergy Type Onset Date Status Product containing sulfonamide (product) (uncoded) Unknown Allergy 09/03/2022 active REASON FOR VISIT Patient presents with painful toenails of both feet. They cause pain with shoes and ambulation. Theonset was gradual. The patient has diabetes mellitus Encounters Encounter Location Date Provider Diagnosis [facility] [place] [address] [place], [place] [phone] 02/10/2024 RAFFI MORA Tinea unguium B35.1 ; Pain in right toe(s) M79.674 ; Pain in left toe(s) M79.675 and Type 2 diabetes mellitus with other circulatory complications E11.59 Assessments Encounter Date Diagnosis (ICD Code) Assessment Notes Treatment Notes Treatment Clinical Notes Section Notes 02/10/2024 Tinea unguium (ICD-10 - B35.1) NAIL DEBRIDEMENT: Nails 1-5 Bilateral were debrided extensively with nail nippers and emery board, reducing length and girth to pink healthy tissue with any subungual debris and necrotic tissue removed 02/10/2024 Pain in right toe(s) (ICD-10 - M79.674) 02/10/2024 Pain in left toe(s) (ICD-10 - M79.675) 02/10/2024 Type 2 diabetes mellitus with other circulatory [...] Prevention Guide. Next Appt Details Follow Up: 10-12 Weeks, Reas on: At risk foot care, sooner if problems arise Provider Name:RAFFI MORA, 01:00:00 PM, [address], [address], [phone], Progress Notes * BLOSSOM WAGNERTWYLAOB:1945 (78 yo F)Acc No.[id number]:02/10/2024 Patient: IAM VILLAFANA Provider: Mukul Mora DPM :1945 A ge:78 Y S ex:Female Date:02/10/2024 Address:[address] [place], [place] [phone] Subjective: * Chief Complaints: * 1 . Patient presents with painful toenails of both feet. They cause pain with shoes and ambulation. The onset was gradual. The patient has diabetes mellitus. * HPI: H PI: General care P atient presents to the office for diabetic foot care. Patient states that their nails are thickened, elongated and painful. Patient states that it is aggravated by shoe gear. Onset is gradual., Patient denies taking blood thinners., Date last seen by Dr. Norwood was 01/2024., Initials [facility]. * Medical History: * Allergies: P roduct containing sulfonamide (product): Allergy - Onset Date 09/03/2022. Objective: * Examination: C onstitutional: Constitutional T he patient is awake, alert, well developed, well groomed and well nourished. D ermatologic: Skin findings: S kin is thin, atrophic and lacking pedal hair. Nail pathology: N ails 1-5 bilateral are elongated, thick, discolored, and dystrophic with subungual debris. They are painful to palpation. ? V ascular: Dorsalis pedis pulse: 0 /4, bilateral. Posterior tibial pulse: 1 /4, bilaterally. Capillary refill: g reater than 3 seconds. Edema: N o edema, bilateral. N eurologic: Gross sensation G ross sensation is intact to light touch.? M usculoskeletal: Muscle Strength M uscle strength is 5/5 in regards to dorsiflexion, plantarflexion, inversion, and eversion in bilateral lower extremities. ? Assessment: * Assessment: 1. T inea unguium - B35.1 (Primary) 2 . P ain in right toe(s) - M79.674 3 . P ain in left toe(s) - M79.675 4 . T ype 2 diabetes mellitus with [...] MORE, Modifiers: Q8 * Follow Up: 1 0-12 Weeks (Reason: At risk foot care, sooner if problems arise) * Billing Information: * Visit Code: * Procedure Codes: 78971 DEBRIDE NAIL, 6 OR MORE. Modifiers: Q8 * Sign off status: Completed true * Provider: Mukul Mora DPM Date: 0 02/10/2024 Generated for Joana spence/Anny/Fabrice on: 0 09/25/2024 12:35 AM PAPERBOARD BOX MAKER History and Physical Notes * HPI (History of Present Illness) Category Sub-Category Detail Notes Category Not es HPI General care Patient presents to the office for diabetic foot care. Patient states that their nails are thickened, elongated and painful. Patient states that it is aggravated by shoe gear. Onset is gradual., Patient denies taking blood thinners., Date last seen by Dr. Norwood was 01/2024., Initials mca Examination Category Sub-Category Detail Notes Category Not es Dermatologic Skin findings: Skin is thin, at rophic and lacking pedal hair Nail pathology: Nails 1-5 bilateral are elongated, thick, discolored, and dystrophic with subungual debris. They are painful to palpation Neurologic Gross sensation Gross sensation is intact to light touch Vascular Dorsalis pedis pulse: 0/4, bilateral Edema: No edema, bilateral Capillary refill: greater than 3 secon ds Posterior tibial pulse: 1/4, bilaterally Musculoskeletal Muscle Strength Muscle strength is 5/5 in regards to dorsiflexion, plantarflexion, inversion, and eversion in bilateral lower extremities Constitutional Constitutional The patient is a wake, alert, well developed, well groomed and well nourished
--- OUTSIDE RECORDS SUMMARY | 2024-09-25 00:35 | XMS_ITS ---
Author Organization [facility] Address [address] [place], [place] [address] Care Team Providers Care Transit Vehicle Inspector Name Role Phone Mariana Khan Unavailable Unavailable RAFFI MORA Unavailable [phone] Allergies Allergen (clinical drug ingredient) Drug/Non Drug Allergy documented on EMR Reaction Allergy Type Onset Date Status Product containing sulfonamide (product) (uncoded) Unknown Allergy 09/03/2022 active REASON FOR VISIT Patient presents for at-risk foot care . The patient has painful toenails that cause difficulty with ambulation and shoegear. The onset is gradual Encounters Encounter Location Date Provider Diagnosis [facility] [address] [place], [place] [id number] 08/10/2024 RAFFI MORA Tinea unguium B35.1 ; Pain in right toe(s) M79.674 ; Pain in left toe(s) M79.675 and Atherosclerosis of [place] & [place] arteries of extremities with intermittent claudication, bilateral legs I70.213 Assessments Encounter Date Diagnosis (ICD Code) Assessment Notes Treatment Notes Treatment Clinical Notes Section Notes 08/10/2024 Tinea unguium (ICD-10 - B35.1) FUNGAL TOENAILS: Discussed various treatment options for fungal toenails including debridement, topical antifungals, oral antifungals, toenail avulsion, or toenail matrixectomy. NAIL DEBRIDEMENT: Nails 1-5 Bilateral were debrided extensively with nail nippers and emery board, reducing length and girth to pink healthy tissue with any subungual debris and necrotic tissue removed 08/10/2024 Pain in right toe(s) (ICD-10 - M79.674) 08/10/2024 Pain in left toe(s) (ICD-10 - M79.675) 08/10/2024 Atherosclerosis of [place] arteries of extremities with intermittent claudication, bilateral legs (ICD-10 - I70.213) Plan Of Treatment Treatment Notes Assessment Notes Tinea unguium FUNGAL TOENAILS: Discussed various treatment options for fungal toenails including debridement, topical antifungals, oral antifungals, toenail avulsion, or toenail matrixectomy. NAIL DEBRIDEMENT: Nails 1-5 Bilateral were debrided extensively with nail nippers and emery board, reducing length and girth to pink healthy tissue with any subungual debris and necrotic tissue removed Next Appt Details Follow Up: 10-12 Weeks, Reas on: At Risk Foot care, sooner if problems arise Provider Name:RAFFI MORA, 01:00:00 PM, [address], [address], [id number], Progress Notes * TERRY WAGNEROB:1945 (79 yo F)Acc No.[id number]:08/10/2024 Patient: IAM VILLAFANA Provider: Mukul Mora DPM :1945 A ge:79 Y S ex:Female Date:08/10/2024 Address:[address] [place] [address] Subjective: * Chief Complaints: * Angel saleem presents for at-risk foot care . The patient has painful toenails that cause difficulty with ambulation and shoegear. The onset is gradual * HPI: H PI: General care Angel saleem presents to the office for diabetic foot care. Patient states that their nails are thickened, elongated and painful. Patient states that it is aggravated by shoe gear. Onset is gradual., Patient denies taking blood thinners., Date last seen by Dr. Khan was April 2024., Initials LB. sample. * Medical History: * Surgical History: * Hospitalization/Major Diagno stic Procedure: * Social History: M igrated Social History: M igrated Social History: History of tobacco use : , Smoking Status : Former tobacco user. * Medications: * Allergies: P roduct containing sulfonamide (product): Allergy - Onset Date 09/03/2022no[Allergies Verified] Objective: * Vitals: * Examination: C onstitutional: Constitutional T he [...] b ilateral. Posterior tibial pulse: 0 /4 b ilateral. Capillary refill: g reater than 3 seconds. [...] - M79.675 4 . A therosclerosis of tling[place] & ha[place] arteries of extremities with intermittent claudication, bilateral legs - I70.213 Plan: * Treatment: * Procedure Codes: 1 1721 DEBRIDE NAIL, 6 OR MORE, Modifiers: Q8 * Follow Up: 1 0-12 Weeks (Reason: At Risk Foot care, sooner if problems arise) * Billing Information: * Visit Code: * Procedure Codes: 07970 DEBRIDE NAIL, 6 OR MORE. Modifiers: Q8 * BUILDER Sign off status: Completed true * Provider: Mukul Mora DPM Date: 0 08/10/2024 Generated for Joana spence/Anny/Fabrice on: 0 09/25/2024 12:34 AM CELL BUILDER History and Physical Notes * HPI (History of Present Illness) Category Sub-Category Detail Notes Category Not es HPI General care Patient presents to the office for diabetic foot care. Patient states that their nails are thickened, elongated and painful. Patient states that it is aggravated by shoe gear. Onset is gradual., Patient denies taking blood thinners., Date last seen by Dr. Khan was April 2024., Initials LB sample Examination Category Sub-Category Detail Notes Category Not es Dermatologic Skin findings: Skin is thin, at rophic and lacking pedal hair Nail pathology: Nails 1, 2, 3, 4, an d 5 bilateral are elongated, thick, discolored, and dystrophic with subungual debris. They are painful to palpation Neurologic Gross sensation Gross sensation is intact to light touch Vascular Dorsalis pedis pulse: 1/4 bilateral Edema: No edema, bilateral Capillary refill: greater than 3 secon ds Posterior tibial pulse: 0/4 bilateral Musculoskeletal Muscle Strength Muscle strength is 5/5 in regards to dorsiflexion, plantarflexion, inversion, and eversion in bilateral lower extremities Constitutional Constitutional The patient is a wake, alert, well developed, well groomed and well nourished
--- OUTSIDE RECORDS SUMMARY | 2024-09-25 00:36 | XMS_ITS | Patient Health Record ---
Author Organization [facility] Address [address] [facility] [address] [place], [place] [id number] Care Team Providers Care Gang Leader Name Role Phone Mariana Khan Unavailable Unavailable RAFFI MORA Unavailable [phone] Allergies Allergen (clinical drug ingredient) Drug/Non Drug Allergy documented on EMR Reaction Allergy Type Onset Date Status Product containing sulfonamide (product) (uncoded) Unknown Allergy 09/03/2022 active Reason For Referral No Information Immunizations Vaccine Route Administration Date Status Comme nts Influenza, high dose seasonal Unknown 05/10/2023 Admini stered Vital Signs Height-cm 154.94 cm 11/18/2023 Weight-kg 54.43 kg 11/18/2023 Height 61.00 in 11/18/2023 Weight 120 lbs 11/18/2023 BMI 22.67 kg/m2 11/18/2023 Encounters Encounter Location Date Provider Diagnosis [facility] [address] [place], [place] [id number] 11/18/2023 RAFFI SNOOK Tinea unguium B35.1 ; Pain in right toe(s) M79.674 ; Pain in left toe(s) M79.675 ; Atherosclerosis of [place] arteries of extremities with intermittent claudication, bilateral legs I70.213 and Type 2 diabetes mellitus with other circulatory complications E11.59 [facility] [address] [place], [place] [id number] 02/10/2024 RAFFI SNOOK Tinea unguium B35.1 ; Pain in right toe(s) M79.674 ; Pain in left toe(s) M79.675 and Type 2 diabetes mellitus with other circulatory complications E11.59 [facility] [address] [place] [id number] 05/11/2024 RAFFI SNOOK Tinea unguium B35.1 ; Pain in right toe(s) M79.674 ; Pain in left toe(s) M79.675 ; Atherosclerosis of [place] arteries of extremities with intermittent claudication, bilateral legs I70.213 and Type 2 diabetes mellitus with other circulatory complications E11.59 [facility] [address] [place] [id number] 08/10/2024 RAFFI SNOOK Tinea unguium B35.1 ; Pain in right toe(s) M79.674 ; Pain in left toe(s) M79.675 and Atherosclerosis of [place] arteries of extremities with intermittent claudication, bilateral legs I70.213 Assessments Encounter Date Diagnosis (ICD Code) Assessment Notes Treatment Notes Treatment Clinical Notes Section Notes 11/18/2023 Tinea unguium (ICD-10 - B35.1) NAIL DEBRIDEMENT: Nails 1-5 Bilateral were debrided extensively with nail nippers and emery board, reducing length and girth to pink healthy tissue with any subungual debris and necrotic tissue removed 11/18/2023 Pain in right toe(s) (ICD-10 - M79.674) 02/10/2024 Tinea unguium (ICD-10 - B35.1) NAIL DEBRIDEMENT: Nails 1-5 Bilateral were debrided extensively with nail nippers and emery board, reducing length and girth to pink healthy tissue with any subungual debris and necrotic tissue removed 02/10/2024 Pain in right toe(s) (ICD-10 - M79.674) 05/11/2024 Tinea unguium (ICD-10 - B35.1) NAIL DEBRIDEMENT: Nails 1-5 Bilateral were debrided extensively with nail nippers and emery board, reducing length and girth to pink healthy tissue with any subungual debris and necrotic tissue removed 08/10/2024 Tinea unguium (ICD-10 - B35.1) FUNGAL [...] in left toe(s) (ICD-10 - M79.675) 05/11/2024 Pain in right toe(s) (ICD-10 - M79.674) 02/10/2024 Pain in left toe(s) (ICD-10 - M79.675) 11/18/2023 Pain in left toe(s) (ICD-10 - M79.675) [...] as well as the Amputation Prevention Guide. 11/18/2023 Atherosclerosis of [place] arteries of extremities with intermittent claudication, bilateral legs (ICD-10 - I70.213) 05/11/2024 Pain in left toe(s) (ICD-10 - M79.675) 08/10/2024 Atherosclerosis of [place] arteries of extremities with intermittent claudication, bilateral legs (ICD-10 - I70.213) 05/11/2024 Atherosclerosis of [place] arteries of extremities with intermittent claudication, bilateral legs (ICD-10 - I70.213) 11/18/2023 Type 2 diabetes mellitus with other circulatory complications (ICD-10 - E11.59) Diabetic Foot Care: The patient was educated on diabetes and the lower extremity. The patient was instructed to check his feet daily to report any problems or signs of infection immediately. The patient was provided written information on Diabetic Foot Care as well as the Amputation Prevention Guide. 05/11/2024 Type 2 diabetes mellitus with other circulatory complications (ICD-10 - E11.59) Diabetic Foot Care: The patient was educated on diabetes and the lower extremity. The patient was instructed to check his feet daily to report any problems or signs of infection immediately. The patient was provided written information on Diabetic Foot Care as well as the Amputation Prevention Guide. Plan Of Treatment Next Appt Details Provider Name:RAFFI MORA, 01:00:00 PM, [address], [place], [place], [id number], Insurance Providers Payer Name Payer Address Payer Phone Subscriber Number Group Number Insured Name Patient Relationship to Insured Coverage Start Date Coverage End Date Medicare Part B [place] [address] [place] [address] [id number] IAM WAGNER Self - patient is the insured [facility] ([facility]) ATTN CLAIMS [address] [place] [address] [id number] IAM WAGNER Self - patient is the insured
--- OUTSIDE RECORDS SUMMARY | 2024-09-25 00:36 | XMS_ITS | Clinical Summary ---
Author Organization [facility] Address [address] [address] Phone Care Team Providers Care Insurance Risk Surveyor Name Role Phone Todd Gonzalez MD Primary Care Provider Social History Tobacco Use Types Packs/Day Years Used Date Smoking Tobacco: Never Assessed Comments Unknown Sex and Gender Information Value Date Recorded Sex Assigned at Not on file Legal Sex Female 7:34 PM CDT Gender Identity Not on file Sexual Orientation Not on file Plan of Treatment Health Maintenance Due Date Last Done Comments DEXA Bone Density 1945 Hepatitis C Virus (HCV) Screening 1945 TdaP Immunization 1945 Pneumococcal Immunization (5 0+ years) (1 of 1 - PCV) 1995 Zoster Immunization (1 of 2) 1995 Respiratory Syncytial Virus (RSV) Immunization (Adult) (1 - 1-dose 75+ series) 2020 Influenza Immunization (#1) 2024 SARS-COV-2 Immunization ( - 2023-25 season) 2024 Hepatitis B Immunization Aged Out No longer eligible based on patient's age to complete this topic Meningococcal Immunization (ACWY) Aged Out No longer eligible based on patient's age to complete this topic Rotavirus Immunization Aged Out No lo nger eligible based on patient's age to complete this topic Insurance [facility] MEDICARE Care Teams Insurance Risk Surveyor Relationship Specialty Start Date End Date Todd Gonzalez MD [address] [place] [address] [place] [address] PCP - General V/Stol Landing Signal Officer 01/06/21
--- OUTSIDE RECORDS SUMMARY | 2024-09-25 00:36 | XMS_ITS | Continuity of Care Document ---
Author Organization [facility] Address [address] [place] [address] Phone Care Team Providers Care Pharmaceutical Representative Name Role Phone Javid Mendez Unavailable Unavailable Procedures Procedure Date Office/outpatient Visit, Est Eye Exam & Treatment Eye Exam & Treatment Eye Exam & Treatment Refraction Advance Directives Directive Yes / No Effective Date File Name No Information Encounters Encounter Description Practice Location Reason(s) For Visit Diagnoses Date Provider Providers Copied on Encounter Office/outpat ient Visit, Est [facility], [address], [place], [place], [address], [place] tel:[phone] [facility] No Information 1-201 0 Krishnasamy Javid. [address] [facility] [address], [place], [address], [place]. tel:[phone] [facility], [address], [place], [place], [address], [place] tel:[phone] [facility] No Information 0-200 9 Krishnasamy Javid. [address] [facility] [address], [place], [address], [place]. tel:[phone] [facility], [address], [place], [place], [address], [place] tel:[phone] [facility] No Information Sep-2 4200 8 Vanessa Hua. [address] [facility] [address], [place], [address], [place]. tel:[phone] [facility], [address], [place], [place], [address], [place] tel:[phone] [facility] No Information Mar- 7 Fahadanne Yanes. [address] [facility], [place], [place], [address], [place]. tel:[phone] Family History Family Member Type Diagnosis Age At Onset No Information Payers Payer name Insurance type Covered green party ID Tahir kernbrennen(s) [facility] [id number] Social History Type Description Quantity Date Captured [...]
--- NOTE | 2024-09-25 04:19 | WPDHPUPDATE1 ---
History and Physical Update Update Date/Time: 09/25/24 04:19 History and Physical has been reviewed, including an updated exam of the patient. There are NO changes in the patient's condition. Risks, benefits, and alternatives have been discussed and questions answered. Patient agrees to proceed with procedure.
[2024-09-25] MEDS: LACTATED RINGERS 1,000 ML 30 ML IV CONT (07:00)
[2024-09-25 07:10] VITALS: BP 140/52; PULSE 61; TEMP 36.4; O2SAT 100; BMI 21.5
[2024-09-25 07:45] LABS: Anion Gap 10 mmol/L (4-12); Blood Urea Nitrogen 16 mg/dL (7-17); Calcium 9.4 mg/dL (8.4-10.2); Carbon Dioxide 24 mmol/L (22-30); Chloride 107 mmol/L (98-107); Estimated CRCL calculation 47 ml/min; Estimated Glomerular Filt Rate > 60; Glucose 119 mg/dL (65-110); Potassium 4.3 mmol/L (3.4-5.0); Sodium 141 mmol/L (137-145)
[2024-09-25] MEDS: BUPIVACAINE/EPINEPHRINE 0.5% 30 ML VIAL INFILTRATE (08:40)
[2024-09-25] MEDS: ceFAZolin 2 GM/D5W 50 ML 2 GM/50 ML BAG IVPB (08:40)
--- NOTE | 2024-09-25 09:15 | W.PM.PROC2 ---
Procedure Note - Detailed Date of Procedure 09/25/24 Pre-op Diagnosis urge incont Post-op Diagnosis Same Procedure Performed Removal sacral lead Removal of implantable pulse generator [address], [address] Surgeon Inocencio Villalpando MD Anesthesia MAC and Local Indications She has an InterStim device in place for urgency incontinence as well as fecal incontinence. Her battery is at end of service. We discussed a full revision. She has changed her mind and does like the device removed. She understands risks of bleeding, infection, incomplete device removal. She agrees to proceed Description of Procedure She is correctly identified. Informed consent obtained. From the operating room. She was given monitored anesthesia care. She was placed prone position. Lower back and buttock were prepped draped sterile fashion. Time-out performed. I anesthetized the skin over the pulse generator. I incised the skin. I located the pulse generator. I removed in its entirety. I then removed the capsule surrounding the pulse generator I then located the lead on the fluoroscopy. I anesthetized the skin. I incised the skin. I located the lead and removed to entirety. I assured hemostasis. I irrigate out all wounds. I closed the subcu tissues with 2-0 Vicryl. Skin with 4-0 Vicryl. Glue was applied. She was awakened transferred to PACU in stable condition. Estimated Blood Loss 3 Drains No Packing No Pathology None sent Complications No immediate complications Condition Stable
[2024-09-25 09:19] VITALS: BP 112/48; PULSE 89; RESP 14; O2SAT 100
[2024-09-25 09:29] LABS: Glucose Point of Care 108 mg/dl (65-105)
[2024-09-25 09:45] VITALS: BP 90/50; PULSE 72; RESP 16; O2SAT 100
[2024-09-25] MEDS: oxyCODONE HCL (*CRX) 5 MG TAB IR PO (09:58)
[2024-09-25 10:15] VITALS: BP 110/60; PULSE 72; RESP 16
[2024-09-25 10:40] VITALS: BP 108/68; PULSE 76; RESP 16
== END 2024-09-25 10:40 | disposition home or self-care (01) ==
PROVIDERS: Anesthesiology; PCP Family Medicine; Visit Provider Urology
PROC: (CPT 64585; principal; 2024-09-25 08:30)
DX: N39.41 Urge incontinence (principal); R15.9 Full incontinence of feces; E03.9 Hypothyroidism, unspecified; E11.9 Type 2 diabetes mellitus without complications; R05.3 Chronic cough; M19.90 Unspecified osteoarthritis, unspecified site; E78.00 Pure hypercholesterolemia, unspecified; Z79.84 Long term (current) use of oral hypoglycemic drugs; Z98.890 Other specified postprocedural states; Z96.82 Presence of neurostimulator; Z87.891 Personal history of nicotine dependence; Z86.0100 Personal history of colon polyps, unspecified; Z85.810 Personal history of malignant neoplasm of tongue; Z86.73 Personal history of transient ischemic attack (TIA), and cerebral infarction without residual deficits; Z80.3 Family history of malignant neoplasm of breast; Z82.49 Family history of ischemic heart disease and other diseases of the circulatory system
CPT/HCPCS: 64585; 64595; 36415; 80048; 82948; 99199; A9270; J0690; J2003; J2704; J3010; J7120

== ENCOUNTER 2024-11-18 08:02 | Outpatient (CLI) | payer MEDICARE, BC, SELFPAY ==
--- OUTSIDE RECORDS SUMMARY | 2024-11-18 08:07 | XMS_ITS ---
Author Organization [facility] Address [address] [place], [place] [address] Care Team Providers Care Retail Worker Name Role Phone REBECCAMelissa RAFFI Unavailable [phone] Robsimi Mariana Unavailable Unavailable Allergies Allergen (clinical drug ingredient) Drug/Non Drug Allergy documented on EMR Reaction Allergy Type Onset Date Status Product containing sulfonamide (product) (uncoded) Unknown Allergy 09/03/2022 active REASON FOR VISIT *General care, Patient presents for at-risk foot care . The patient has painful toenails that causedifficulty with ambulation and shoegear. The onset is gradual Vital Signs Weight 120 lbs 11/09/2024 Weight-kg 54.43 kg 11/09/2024 Height 61.00 in 11/09/2024 Height-cm 154.94 cm 11/09/2024 BMI 22.67 kg/m2 11/09/2024 Encounters Encounter Location Date Provider Diagnosis [facility] [address] [place], [place] [id number] 11/09/2024 RAFFI MORA Tinea unguium B35.1 Assessments Encounter Date Diagnosis (ICD Code) Assessment Notes Treatment Notes Treatment Clinical Notes Section Notes 11/09/2024 Tinea unguium (ICD-10 - B35.1) FUNGAL TOENAILS: Discussed various treatment options for fungal toenails including debridement, topical antifungals, oral antifungals, toenail avulsion, or toenail matrixectomy. NAIL DEBRIDEMENT: Nails 1-5 Bilateral were debrided extensively with nail nippers and emery board, reducing length and girth to pink healthy tissue with any subungual debris and necrotic tissue removed Plan Of Treatment Treatment Notes Assessment Notes [...] Name:RAFFI MORA, 01:00:00 PM, [address], [address], [phone], Progress Notes * WAGNERBLOSSOM REILLYTWYLAOB:1945 (79 yo F)Acc No.[id number]:11/09/2024 Patient: Edil BARRYIAM Provider: Mukul Mora DPM :1945 A ge:79 Y S ex:Female Date:11/09/2024 Address:[address] [place], [place] [phone] Subjective: * Chief Complaints: * 1 . *General care. 2. Patient presents for at-risk foot care . The patient has painful toenails that cause difficulty with ambulation and shoegear. The onset is gradual. * HPI: H PI: General care P atient presents to the office for at risk foot care. Patient states that their nails are thickened, elongated and painful. Patient states that it is aggravated by shoe gear. Onset is gradual. Patient denies being diabetic., Patient denies taking blood thinners., Date last seen by Dr. Torres was July 2024., Initials LB. sample. * Medical History: M edical History Verified. * Family History: N o Family History documented.. * Social History: M igrated Social History: M igrated Social History: History of tobacco use : , Smoking Status : Former tobacco user. * Medications: N one * Allergies: P roduct containing sulfonamide (product): Allergy - Onset Date 09/03/2022. Objective: * Vitals: W t: 120 lbs, Wt-k.43 kg, Ht: 61.00 in, Ht-cm: 154.94 cm, BMI: 22.67 Index, Body Surface Area: 1.53. * Examination: C onstitutional: Constitutional T he [...] extremities. ? Assessment: * Assessment: 1. T nathan vann - B35.1 (Primary) Plan: * Treatment: * Immunizations: Immunization record has been reviewed and updated. * Follow Up: 1 0-12 Weeks (Reason: At Risk Foot care, sooner if problems arise) * Billing Information: * Visit Code: * Procedure Codes: * Electronic signature of RAFFI MORA DPM on 11/18/2024 at 08:06 AM CDT Sign off status: Pending * Provider: Mukul Mora DPM Date: 0 11/09/2024 Generated for Joana spence/Anny/Fabrice on: 0 11/18/2024 08:06 AM CDT History and Physical Notes * HPI (History of Present Illness) Category Sub-Category Detail Notes Category Not es HPI General care Patient presents to the office for at risk foot care. Patient states that their nails are thickened, elongated and painful. Patient states that it is aggravated by shoe gear. Onset is gradual. Patient denies being diabetic., Patient denies taking blood thinners., Date last seen by Dr. Torres was July 2024., Initials LB sample Examination Category Sub-Category [...]
--- OUTSIDE RECORDS SUMMARY | 2024-11-18 08:07 | XMS_ITS ---
Author Organization [facility] Address [address] [place], [place] [id number] Care Team Providers Care Buffer Nickel Name Role Phone REBECCAARABELLA TorresIC Unavailable [phone] Anali Khania Unavailable Unavailable Allergies Allergen (clinical drug ingredient) [...] Location Date Provider Diagnosis [facility] [address] [place], [place] [id number] 05/11/2024 RAFFI MORA Tinea unguium B35.1 ; Pain in right toe(s) M79.674 ; Pain in left toe(s) M79.675 ; Atherosclerosis of [place] arteries of extremities with intermittent claudication, bilateral [...] toe(s) (ICD-10 - M79.675) 05/11/2024 Atherosclerosis of [place] arteries of extremities with intermittent claudication, bilateral [...] Name:RAFFI MORA, 01:00:00 PM, [address], [address], [phone], Progress Notes * TERRY WAGNEROB:1945 (78 yo F)Acc No.[id number]:05/11/2024 Patient: IAM VILLAFANA Provider: Mukul Mora DPM :1945 A ge:78 Y S ex:Female Date:05/11/2024 Address:[address] [place], [place] [phone] Subjective: * Chief Complaints: * 1 . [...] seen by Dr. Khan was 03/2024., Initials [facility] , Patient presents to the office [...] - M79.675 4 . A therosclerosis of [place] arteries of extremities with intermittent claudication, bilateral [...] Information: * Visit Code: * Procedure Codes: 57049 DEBRIDE NAIL, 6 OR MORE. Modifiers: Q8 * Sign off status: Completed true * Provider: Mukul Mora DPM Date: 1 Generated for Joana spence/Anny/Fabrice on: 0 11/18/2024 08:07 AM CDT History and Physical Notes * [...]
--- OUTSIDE RECORDS SUMMARY | 2024-11-18 08:07 | XMS_ITS ---
Author Organization [facility] Address [address] [place], [place] [address] Care Team Providers Care Sports Marketing Coordinator Name Role Phone RAFFI MORA Unavailable [phone] JimmynayareggieMariana belcher Unavailable Unavailable Allergies Allergen (clinical drug ingredient) Drug/Non Drug Allergy documented on EMR Reaction Allergy Type Onset Date Status Product containing sulfonamide (product) (uncoded) Unknown Allergy 09/03/2022 active REASON FOR VISIT Patient presents for at-risk foot care . The patient has painful toenails that cause difficulty with ambulation and shoegear. The onset is gradual Encounters Encounter Location Date Provider Diagnosis [facility] [place] [address] [place], [place] [id number] 08/10/2024 RAFFI DUBOISARRONMelissa Tinea unguium B35.1 ; Pain in right toe(s) M79.674 ; Pain in left toe(s) M79.675 and Atherosclerosis of [place] arteries of extremities with intermittent claudication, bilateral [...] toe(s) (ICD-10 - M79.675) 08/10/2024 Atherosclerosis of [place] arteries of extremities with intermittent claudication, bilateral [...] Name:RAFFI MORA, 01:00:00 PM, [address], [address], [id number], Progress Notes * TERRY WAGNEROB:1945 (79 yo F)Acc No.[id number]:08/10/2024 Patient: IAM VILLAFANA Provider: Mukul Mora DPM :1945 A ge:79 Y S ex:Female Date:08/10/2024 Address:[address] [place] [address] Subjective: * Chief Complaints: * Angel saleem [...] - M79.675 4 . A therosclerosis of [place] arteries of extremities with intermittent claudication, bilateral legs - I70.213 Plan: * Treatment: * Procedure Codes: 1 1721 DEBRIDE NAIL, 6 OR MORE, Modifiers: Q8 * Follow Up: 1 0-12 Weeks (Reason: At Risk Foot care, sooner if problems arise) * Billing Information: * Visit Code: * Procedure Codes: 25271 DEBRIDE NAIL, 6 OR MORE. Modifiers: Q8 * R ADJUSTER Sign off status: Completed true * Provider: Mukul Mora DPM Date: 0 08/10/2024 Generated for Joana spence/Anny/Fabrice on: 0 11/18/2024 [...]
--- OUTSIDE RECORDS SUMMARY | 2024-11-18 08:07 | XMS_ITS | Patient Health Record ---
Author Organization [facility] Address [address] [facility] [address] [place], [place] [address] Care Team Providers Care Decal Cutter Name Role Phone RAFFI MORA Unavailable [phone] Anali Khania Unavailable Unavailable Allergies Allergen (clinical drug ingredient) Drug/Non Drug Allergy documented on EMR Reaction Allergy Type Onset Date Status Product containing sulfonamide (product) (uncoded) Unknown Allergy 09/03/2022 active Reason For Referral No Information Immunizations Vaccine Route Administration Date Status Comme nts Influenza, high dose seasonal Unknown 05/10/2023 Admini stered Vital Signs Height-cm 154.94 cm 11/09/2024 Weight-kg 54.43 kg 11/09/2024 Height 61.00 in 11/09/2024 Weight 120 lbs 11/09/2024 BMI 22.67 kg/m2 11/09/2024 Encounters Encounter Location Date Provider Diagnosis [facility] [place] [address] [place], [place] [id number] 11/09/2024 RAFFI SNOOK Tinea unguium B35.1 [facility] [place] [address] [place], [place] [id number] 02/10/2024 RAFFI SNOOK Tinea unguium B35.1 ; Pain in right toe(s) M79.674 ; Pain in left toe(s) M79.675 and Type 2 diabetes mellitus with other circulatory complications E11.59 [facility] [place] [address] [place], [place] [id number] 05/11/2024 RAFFI SNOOK Tinea unguium B35.1 ; Pain in right toe(s) M79.674 ; Pain in left toe(s) M79.675 ; Atherosclerosis of [place] arteries of extremities with intermittent claudication, bilateral legs I70.213 and Type 2 diabetes mellitus with other circulatory complications E11.59 [facility] [address] [place], [place] [id number] 08/10/2024 RAFFI MORA Tinea unguium B35.1 ; Pain in right toe(s) M79.674 ; Pain in left toe(s) M79.675 and Atherosclerosis of [place] arteries of extremities with intermittent claudication, bilateral [...] Pain in right toe(s) (ICD-10 - M79.674) 11/09/2024 Tinea unguium (ICD-10 - B35.1) FUNGAL TOENAILS: Discussed various treatment options for fungal toenails including debridement, topical antifungals, oral antifungals, toenail avulsion, or toenail matrixectomy. NAIL DEBRIDEMENT: Nails 1-5 Bilateral were debrided extensively with nail nippers and emery board, reducing length and girth to pink healthy tissue with any subungual debris and necrotic tissue removed 08/10/2024 Pain in left toe(s) (ICD-10 - [...] well as the Amputation Prevention Guide. 05/11/2024 Pain in left toe(s) (ICD-10 - M79.675) 08/10/2024 Atherosclerosis of [place] arteries of extremities with intermittent claudication, bilateral legs (ICD-10 - I70.213) 05/11/2024 Atherosclerosis of [place] arteries of extremities with intermittent claudication, bilateral [...] Appt Details Provider Name:RAFFI MORA, 01:00:00 PM, [address], [place], [place], [id number], Insurance Providers Payer Name Payer Address Payer Phone Subscriber Number Group Number Insured Name Patient Relationship to Insured Coverage Start Date Coverage End Date Medicare Part B [place] [address] [place] [phone] [id number] IAM WAGNER Self - patient is the insured [facility] ([facility]) ATTN CLAIMS [address] [place] [address] [id number] IAM WAGNER Self - patient is the insured
--- OUTSIDE RECORDS SUMMARY | 2024-11-18 08:07 | XMS_ITS | Continuity of Care Document ---
Author Organization [facility] Address [address] [place] [address] Phone Care Team Providers Care Licensed Surveyor Name Role Phone Javid Mendez Unavailable Unavailable Procedures Procedure Date Office/outpatient Visit, Est Eye Exam & Treatment Eye Exam & Treatment Eye Exam & Treatment Refraction Advance Directives Directive Yes / No Effective Date File Name No Information Encounters Encounter Description Practice Location Reason(s) For Visit Diagnoses Date Provider Providers Copied on Encounter Office/outpat ient Visit, Est [facility], [address], [place], [place], [address], [place] tel:[phone] [facility] No Information 1-201 0 Krishnasamy Javid. [address] [facility] [address], [place], [address], [place]. tel:[phone] [facility], [address], [place], [place], [address], [place] tel:[phone] [facility] No Information 0-200 9 Krishnasamy Javid. [address] [facility] [address], [place], [address], [place]. tel:[phone] [facility], [address], [place], [place], [address], [place] tel:[phone] [facility] No Information Sep-2 4200 8 Vanessa Hua. [address] [facility] [address], [place], [address], [place]. tel:[phone] [facility] Eye [facility], [address], [place], [place], [address], [place] tel:[phone] [facility] No Information Mar- 7 Fahadanne Yanes. [address] [facility], [place], [place], [address], [place]. tel:[phone] Family History Family Member Type Diagnosis Age At Onset No Information Payers Payer name Insurance type Covered alliance party ID Tahir kernbrennen(s) [facility] [id number] Social History Type Description Quantity Date Captured [...]
--- OUTSIDE RECORDS SUMMARY | 2024-11-18 08:07 | XMS_ITS | Clinical Summary ---
Author Organization [facility] Address [address] [address] Phone Care Team Providers Care Stage Settings Painter Name Role Phone Todd Gonzalez MD Primary Care Provider [phone] Social History Tobacco Use Types Packs/Day Years Used Date Smoking Tobacco: Never Assessed Comments Unknown Sex and Gender Information Value Date Recorded Sex Assigned at Not on file Legal Sex Female 7:34 PM CDT Gender Identity Not on file Sexual Orientation Not on file Plan of Treatment Health Maintenance Due Date Last Done Comments Hepatitis C Virus (HCV) Screening 1945 TdaP Immunization 1945 Pneumococcal Immunization (5 0+ years) (1 of 1 - PCV) 1995 Zoster Immunization (1 of 2) 1995 Respiratory Syncytial Virus (RSV) Immunization (Adult) (1 - 1-dose 75+ series) 2020 Influenza Immunization (#1) 2024 SARS-COV-2 Immunization (1 - 2023-25 season) 2024 Hepatitis B Immunization Aged Out No longer eligible based on patient's age to complete this topic Meningococcal Immunization (ACWY) Aged Out No longer eligible based on patient's age to complete this topic Rotavirus Immunization Aged Out No lo nger eligible based on patient's age to complete this topic Insurance [facility] MEDICARE Care Teams Stage Settings Painter Relationship Specialty Start Date End Date Todd Gonzalez MD [facility] [place] [address] PCP - General Warp Knit Operator 01/06/21
--- OUTSIDE RECORDS SUMMARY | 2024-11-18 08:07 | XMS_ITS ---
Author Organization [facility] Address [address] [place] [address] Care Team Providers Care Precipitator Name Role Phone Mariana Khan MD Primary [...] by Claire Stewart MD on 12/30/2023 Current Treatment and Therapy Plans No current plan information found. Past Treatment and Therapy Plans ONCOLOGY TREATMENT Plan Name Start Date Discontinue Date Treatment Medications Discontinue Reason Plan Provider Cycles HEAD/NECK LOC ADV (CISPLATIN ) WEEKLY W/ RT 2 07/30/2022 CISplatin (Platinol)CISpl atin (Platinol) Infusion Therapy Complete Josette Nathan MD -1 of 6 cycles Radiation Treatments * Course BaseofTongue04/1204/30/2022 - 06/25/2022 Treatment Period Energy Fraction Dose Fractions Total Dose Plans Planned #BOT 04/30/2022 - 06/25/2022 35 / 3 5 7,000 cGy Reference Points Delivered PTV3 04/30/2022 - 06/25/2022 7,000 cGy Lifetime Dose Tracking * Chemical Lifetime Dose Automatic Entry Manual Entr y Dose Length Product 2,364 mGy-cm 2,364 mGy-cm 0 mGy-cm Resolved Problems Problem Noted Date Diagnosed Date Resolved Date Sinusitis 07/02/2022 07/30/2022
--- OUTSIDE RECORDS SUMMARY | 2024-11-18 08:07 | XMS_ITS | Clinical Summary ---
Author Organization [facility] Address [address] [facility] [place] [address] Care Team Providers Care Registered Nurse Fetal Name Role Phone Mariana Khan MD Primary Care Provider + Source Comments [facility],non-owned Affiliates and Associated Physician Practices is amultiple site organization consisting of ambulatory clinics and hospital sitesin [place], [place], [place] and [place]. This disclosure is being madepursuant to the Care Everywhere program and may not contain all information available regarding this patient. Last updated 18.[facility] [place] Allergies Active Allergy Reactions Criticality Noted Date Comments Diclofenac Epolamine Itching 04/04/2022 Sulfa Drugs Itching 04/04/2022 Medications * Be aware that medications may not be up to date on this document. Alwaysverify current medications with the patient. levothyroxine (Synthroid) 75 MCG tablet Take 1 (one) tablet by mouth once daily 2 Active escitalopram (Lexapro) 10 MG tablet Take 1 (one) tablet by mouth once daily 3 Active acetaminophen (Tylenol) 500 MG tablet Take 2 (two) tablets by mouth nightly as needed for Fever or Pain Maximum allowable Acetaminophen amount = 4 Grams (4000 mg) / 24 hours. Active chlorphenirami ne (EQ Chlortabs) 4 MG tablet Take 1 (one) tablet by mouth every 6 hours as needed for Nasal Congestion or Allergies Active loperamide (Imodium) 2 MG capsule Take 1 (one) capsule by mouth once Takes one every 3 days Active rosuvastatin (Crestor) 5 MG tablet Take 1 (one) tablet by mouth once daily 3 Active Mouthwashes (BIOTENE DRY MOUTH MT) by Mouth/Throat route as needed Active SALINE NASAL SPRAY NA [place] 1 spray into the nose as needed Active benzocaine-men thol (Chloraseptic) 6-10 MG lozenge Take by mouth as needed for Sore Throat Active famotidine (Pepcid) 20 MG tablet Take 1 (one) tablet by mouth once daily 4 Active Active Problems Problem Noted Date Diagnosed [...] Date Resolved Date Sinusitis 07/02/2022 07/30/2022 Immunizations Immunization Administration Dates Next Due Covid Moderna primary [...] money to buy more. Never true 06/13/20 Within the past 12 months, t he food you bought just didn't last and you didn't have money to get more. Never true 06/13/2022 Comments No Sex and Gender Information Value Date Recorded Sex Assigned at Not on file Legal Sex Female 2:20 PM CDT Gender Identity Not on file Sexual Orientation Not on file Last Filed Vital Signs Vital Sign Reading Time Taken Comments Blood Pressure 124/78 06/30/2024 11:10 AM PROFESSIONAL NURSING TUTOR Pulse 64 06/30/2024 11:10 AM PROFESSIONAL NURSING TUTOR Temperature 36.6 C (97.9 F) 06/30/2024 11:10 AM PROFESSIONAL NURSING TUTOR Respiratory Rate 20 06/30/2024 11:10 AM PROFESSIONAL NURSING TUTOR Oxygen Saturation 98% 06/30/2024 11:10 AM PROFESSIONAL NURSING TUTOR Inhaled Oxygen Concentration - - Weight 56.9 kg (125 lb 6.4 oz) 06/30/2024 11:10 AM PROFESSIONAL NURSING TUTOR Height 157.5 cm (5' 2 ) 06/26/2024 1:36 PM PROFESSIONAL NURSING TUTOR Body Mass Index 22.94 06/26/2024 1:36 PM PROFESSIONAL NURSING TUTOR Plan of Treatment Upcoming Encounters Date Type Department Care Team (Late st Contact Info) Description 12/28/2024 10:40 AM CDT Office Visit [facility] - Hematology/Oncology [address] [place] [phone] Leatha Monroy, EDITOR-HORSE BREEDER [address] [place] [phone] 01/01/2025 1:00 PM CDT Appointment [facility] CAT SCAN [address] [place] [phone] Balbir Carrillo MD [address] [place] [address] 01/01/2025 1:45 PM CDT Office Visit [facility] - ENT [address] [place] [phone] Balbir Carrillo MD [address] [place] [address] 01/04/2025 10:00 AM CDT Appointment [facility] RAD ONC [address] [place] [address] Major Shearer MD [address] [place] [address] Health Maintenance Due Date Last Done Comments [...] 2024 08/01/2022, 02/12/2022, 05/14/2021, Additional history exists DEPRESSION SCREENING 07/22/2024 04/16/2022 DIABETES - URINE PROTEIN SCREENING 07/22/2024 DIABETES-SERUM CREATININE 12/03/20242023, 06/27/2023, 06/03/2023, Additional history exists INFLUENZA VACCINE (Season Ended) 2025 05/10/2023, 05/01/2022, 05/01/2022, Additional history exists PNEUMOCOCCAL VACCINE 50+ Completed 05/20/2012 ZOSTER VACCINE Completed 12/27/2017, 04/0 03/2018, 02/10/2009 HEPATITIS B VACCINE Aged Out No longe r eligible based on patient's age to complete this topic HIB VACCINE Aged Out No longer eligi ble based on patient's age to complete this topic HPV VACCINE Aged Out No longer eligi ble based on patient's age to complete this topic MENINGOCOCCAL (Group B) VACCINE SHARED DECISION-MAKING Aged Out No longer eligible based on patient's age to complete this topic MENINGOCOCCAL GROUPS A/C/Y/W VACCINE Aged Out No longer eligible based on patient's age to complete this topic Medical Devices Implanted Type Area Stonecutter Device Identifier Shelf Expiration Date Model / Serial / Lot Port Implinfn Powerport Clrvu Argd Aviva Implanted:Qty: 1 on 05/11/2022 at [facility] Right: Chest Wall Bard Peripheral Vascular 06/20/2023 [id number] / / [id number] Procedures Procedure Name Priority Date/Time Associated Diagnosis Comments CREATININE - POCT INTERFACED Routine 12/04/2023 10:07 AM CDT HEMOGLOBIN A1C Routine 06/11/2022 11:38 PM PROFESSIONAL NURSING TUTOR from Last 3 Months or Most Recently Relevant to Health Maintenance Results * (ABNORMAL) CREATININE - POCT INTERFACED (12/04/2023 10:07 AM CDT) Creatinine POCT 0.78 0.30 - 1.30 mg/dL 12/04/2023 10:13 AM CDT [facility] eGFR 78(L) >=90 mL/min/1.7 3 m2 12/04/2023 10:13 AM CDT [facility] Blood BLOOD SPECIMEN / Unknown 12/04/2023 10:07 AM CDT 12/04/2023 10:13 AM CDT us Major Shearer MD LAB - POINT OF CARE ORDERAB LES Final Result Performing Organization Address [facility] Co de Phone Number [facility] [address] [place] [address], [facility] [phone] * (ABNORMAL) HEMOGLOBIN A1C (06/11/2022 11:38 PM PROFESSIONAL NURSING TUTOR) Hemoglobin A1c 9.1(H) <=5.6 % 06/12/2022 7:58 AM [facility] Estimated Average Glucose 214 mg/dL 06/12/2022 7:58 AM [facility] Comment: HbA1c Interpretation: Normal : < 5.7% Pre-diabetes: 5.7-6.4% Diabetes: Equal to or greater than 6.5% Test results diagnostic of diabetes should be repeated for confirmation. Treatment target values recommended by ADA and other clinical organizations should be used to evaluate metabolic control in patients. Reference: [place] [employer], Standards of Care in Diabetes -2020 In patients 70 years and older consider HbA1c target range of 7.0-7.5% (Reference: Jose Bustillo et al. JAMDA. 2012) The Sebia assay for the measurement of HbA1c is a National Glycohemoglobin Standardization Program (NGSP) certified method. Blood BLOOD SPECIMEN / Unknown Venipuncture / Unknown 06/11/2022 11:38 PM PROFESSIONAL NURSING TUTOR 06/11/2022 11:54 PM PROFESSIONAL NURSING TUTOR us Josette Nathan MD LAB - CHEMISTRY ORDERABLES Final Result Performing Organization Address City/[facility]/ZIP Co de Phone Number [facility] [address] [place] [address], [place] [phone] from Last 3 Months or Most Recently Relevant to Health Maintenance Insurance MEDICARE [facility] MEDICARE [facility] Advance Directives * Full Code (Latest Code Status on File) Date Activated Date Inactivated Comments 06/11/2022 9:58 PM 06/25/2022 7:54 PM Care Teams Registered Nurse Fetal Relationship Specialty Start Date End Date Mariana Khan MD [address] [facility] [address] [place] [address] PCP - General Family Medicine 04/04/22
[2024-11-18 08:27] LABS: Basophils Percent Auto 0.2 % (0.2-1.2); Eosinophils Absolute Auto 0.1 K/mm3 (0-0.3); Eosinophils Percent Auto 1.6 % (0-4.4); Hematocrit 42.2 % (37.0-47.0); Hemoglobin 13.2 g/dL (12.0-15.0); Immature Granulocyte Absolute 0.01 K/mm3 (0.00-0.031); Immature Granulocyte Percent A 0.2 % (0-0.5); Lymphocytes Absolute Auto 1.36 K/mm3 (0.9-3.2); Lymphocytes Percent Auto 27.3 % (18.3-44.2); Mean Corpuscular HGB Conc 31.3 g/dl (32-36); Mean Corpuscular Hemoglobin 31.7 pg (26-34); Mean Corpuscular Volume 101.2 fl (80-100); Mean Platelet Volume 9.4 fl (7.4-10.4); Monocytes Absolute Auto 0.7 K/mm3 (0.1-0.6); Monocytes Percent Auto 14.4 % (2.6-8.5); Neutrophils Absolute Auto 2.8 K/mm3 (1.3-6.7); Neutrophils Percent Auto 56.3 % (45.5-73.1); Platelet Count Result 233 k/mm3 (150-375); Red Blood Count 4.17 M/mm3 (4.2-5.4); Red Cell Distribution Width 13.6 % (11.5-14.5)
[2024-11-18 08:40] LABS: Alanine Aminotransferase 28 U/L (6-35); Albumin Level 4.6 g/dL (3.5-5.1); Alkaline Phosphatase 68 U/L (38-126); Anion Gap 8 mmol/L (4-12); Aspartate Amino Transferase 33 U/L (14-36); Bilirubin,Total 0.4 mg/dL (0.2-1.3); Blood Urea Nitrogen 18 mg/dL (7-17); Calcium 9.5 mg/dL (8.4-10.2); Carbon Dioxide 28 mmol/L (22-30); Chloride 104 mmol/L (98-107); Cholesterol 196 mg/dL (0-200); Estimated Glomerular Filt Rate > 60; Glucose 133 mg/dL (65-110); HDL Direct 79 mg/dL; Potassium 4.2 mmol/L (3.4-5.0); Sodium 140 mmol/L (137-145); Triglycerides 132 mg/dL (<150)
[2024-11-18 08:51] LABS: LDL Cholesterol Direct 69 mg/dL
[2024-11-18 09:00] LABS: Free T4 Free Thyroxine 1.45 ng/dL (0.78-2.19)
[2024-11-18 09:05] LABS: Microalbumin Urine Random 7.3 mg/L (0-16.7)
[2024-11-18 09:06] LABS: Creatinine Urine 41.3 mg/dL; MALB Creatinine Ratio 17.7 mg/g (0-30)
[2024-11-18 09:12] LABS: Thyroid Stimulating Hormone 0.117 uIU/mL (0.465-4.680)
[2024-11-18 09:15] LABS: Hemoglobin A1C 6.5 % (<5.7)
== END 2024-11-18 08:03 | disposition home or self-care (01) ==
LOC: ANHLAB 08:04
PROVIDERS: PCP Family Medicine; Visit Provider Physician Assistant
DX: E07.9 Disorder of thyroid, unspecified (principal); E78.2 Mixed hyperlipidemia; E11.9 Type 2 diabetes mellitus without complications; Z79.4 Long term (current) use of insulin
CPT/HCPCS: 36415; 80053; 80061; 82043; 83036; 84439; 84443; 85025

== ENCOUNTER 2025-02-08 13:45 | Outpatient (CLI) | payer MEDICARE, BC, SELFPAY ==
--- OUTSIDE RECORDS SUMMARY | 2025-02-08 13:51 | XMS_ITS | Clinical Summary ---
Author Organization [facility] Address [address] [address] Phone Care Team Providers Care Valve Repairer Name Role Phone Todd Gonzalez MD Primary [...] (Adult) (1 - 1-dose 75+ series) 2020 SARS-COV-2 Immunization (1 - 2023- season) 2024 Influenza Immunization (#1) 2025 Hepatitis B Immunization Aged Out No longer eligible based on patient's age to complete this topic Human Papillomavirus (HPV) Immunization Aged Out No longer eligible b ased on patient's age to complete this topic Meningococcal Immunization (ACWY) Aged Out No longer eligible based on patient's age to complete this topic Rotavirus Immunization Aged Out No lo nger eligible based on patient's age to complete this topic Insurance [facility] MEDICARE Care Teams Valve Repairer Relationship Specialty Start Date End Date Todd Gonzalez MD [facility] [place] [address] PCP - General Nut Picker 01/06/21
--- OUTSIDE RECORDS SUMMARY | 2025-02-08 13:52 | XMS_ITS | Clinical Summary ---
Author Organization [facility] Address [address] [facility] [place] [address] Care Team Providers Care Electronic Gluer Name Role Phone Alec Zapata MD Primary Care Provider [phone] Source Comments [facility],non-owned Affiliates and Associated Physician Practices is amultiple site organization consisting of ambulatory clinics and hospital sitesin [place], [place], [place]. This disclosure is being madepursuant to the Care Everywhere program and may not contain all information available regarding this patient. Last updated 18.[facility] Allergies Active Allergy Reactions Criticality Noted Date Comments Diclofenac Epolamine Itching 04/04/2022 Sulfa Drugs Itching 04/04/2022 Medications * Be aware that medications may not be up to date on this document. Alwaysverify current medications with the patient. escitalopram (Lexapro) 10 MG tablet Take 1 [...] as needed Active SALINE NASAL SPRAY NA [place] 1 spray into the nose as needed Active benzocaine-men thol (Chloraseptic) 6-10 MG lozenge Take by mouth as needed for Sore Throat Active levothyroxine (Synthroid) 50 MCG tablet Take 1 (one) tablet by mouth once daily 5 Active pilocarpine HCl (Salagen) 5 MG tabletIndicati ons:Xerostomia Take 1 (one) tablet by mouth 3 times daily Reasons: Dry Mouth 90 tablet 2 5 Active Active Problems Problem Noted Date Diagnosed [...] Encounters Date Type Department Care Team Description 01/04/2025 10:00 AM CDT - 01/04/2025 11:59 PM T Hospital Encounter [facility] [address] [place] [address] Major Shearer MD Butler, David Ferrell, MD Discharge Disposition: Home or Self Care 01/01/2025 1:45 PM CDT Office Visit [facility] - ENT [address] [place] [phone] Balbir Carrillo MD 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) 01/01/2025 1:00 PM CDT - 01/01/2025 11:59 PM CDT Hospital Encounter [facility] [address] [place] [address] Balbir Carrillo MD Discharge Disposition: Home or Self Care 01/01/2025 Travel 12/30/2024 10:20 AM CDT Office Visit [facility] - Hematology/Oncology [address] [phone] Leatha Monroy, MARKETING ANALYST-PET STYLIST Cancer of base of tongue (HCC) (Primary Dx); Fatigue, unspecified type; Oropharyngeal dysphagia 12/30/2024 Travel from Last 3 Months Immunizations Immunization Administration Dates Next Due COVID MODERNA 12+ yr 50mcg/0.5mL 04/23/2024 COVID PFIZER 12+YR 30MCG/0.3mL 04/19/2023 COVID PFIZER BIVALENT 12Y+ 30mcg/0.3ML 08/01/2022 Covid Moderna primary monova lent 12+ yr 0.5mL 05/14/2021,10/11/2020,08/31/2020 INFLUENZA VACCINE 05/01/2022,05/05/2018 INFLUENZA VACCINE, HIGH-DOSE , QUADR. (FLUZONE HIGH-DOSE QUADRIVALENT; 65Y+), 0.7 ML (HD-IIV4) 05/22/2023,05/10/2023,05/01/2022,2020,04/06/2020 INFLUENZA VACCINE, HIGH-DOSE , TRIV. (FLUZONE HIGH-DOSE TRIVALENT; 65Y+) (HD-IIV3) 04/23/2024,05/05/2018 INFLUENZA VACCINE, QUADR. (F LUZONE; FLULAVAL; FLUARIX; [...] Sign Reading Time Taken Comments Blood Pressure 112/60 01/04/2025 10:37 AM CDT Pulse 80 01/04/2025 10:37 AM CDT Temperature 35.8 C (96.4 F) 01/04/2025 10:34 AM CDT Respiratory Rate 18 01/04/2025 10:37 AM CDT Oxygen Saturation 99% 01/04/2025 10:37 AM CDT Inhaled Oxygen Concentration - - Weight 56.9 kg (125 lb 6.4 oz) 01/04/2025 10:34 AM CDT Height 157.5 cm (5' 2) 01/01/2025 2:10 PM CDT Body Mass Index 22.94 01/01/2025 2:10 PM CDT Plan of Treatment Upcoming Encounters Date Type Department Care Team (Late st Contact Info) Description 05/14/2025 10:40 AM CDT Appointment [facility] [address] [place] [phone] Gary Pugh MD [address] [place] [address] 05/14/2025 11:00 AM CDT Appointment [facility] [address] [place] [phone] Gary Pugh MD [address] [place] [address] 05/14/2025 11:30 AM CDT Appointment [facility] [address] [place] [address] Major Shearer MD [address] [place] [address] 05/14/2025 1:45 PM CDT Office Visit [facility] - ENT [address] [place] [phone] Balbir Carrillo MD [address] [place] [address] 06/30/2025 1:20 PM WRECKING CAR DRIVER Office Visit [facility] - Hematology/Oncology [address] [place] [phone] [place] [address] [place] [phone] Health Maintenance Due Date Last Done Comments BONE DENSITY TESTING 1945 MEDICARE AWV 12 MONTHS 1945 DTAP/TDAP/TD VACCINES (2 - Td or Tdap) 09/17/2012 09/17/2002 Respiratory Syncytial Virus (RSV) Vaccine Pt: or over 60 yrs (1 - 1-dose 75+ series) 2020 DIABETES RETINOPATHY SCREENING 07/02/2022 DIABETES-FOOT EXAM WITH MONOFILAMENT 07/02/2022 DIABETES-HGB A1C 09/11/2022 06/11/2022 DEPRESSION SCREENING 07/22/2024 04/16/2022 DIABETES - URINE PROTEIN SCREENING 07/22/2024 COVID-19 VACCINE ( season) 2024 04/23/2024, 04/19/2023, 08/01/2022, Additional history exists DIABETES-SERUM CREATININE 12/03/20242023, 06/27/2023, 06/03/2023, Additional history exists INFLUENZA VACCINE (#1) 2025 , 05/22/2023, 05/10/2023, Additional history exists PNEUMOCOCCAL VACCINE 50+ Completed 05/20/2012 ZOSTER VACCINE Completed 12/27/2017, 0403/2018, 02/10/2009 HEPATITIS B VACCINE Aged Out No [...] this topic Medical Devices Implanted Type Area Interior Decorator Device Identifier Shelf Expiration Date Model / Serial / Lot Port Implinfn Powerport Clrvu Argd Aviva Implanted:Qty: 1 on 05/11/2022 at [facility] Right: Chest Wall [employer] 06/20/2023 [id number] / / [id number] Procedures Procedure Name Priority Date/Time Associated Diagnosis Comments PROC ENDOSCOPY-LARYNX Routine 01/01/2025 2:28 PM CDT Cancer of base of tongue (CMS/HCC) CT CHEST WO CONTRAST Routine 01/01/2025 1:22 PM CDT Cancer of base of tongue (CMS/HCC) CREATININE - POCT INTERFACED Routine 12/04/2023 10:07 AM CDT HEMOGLOBIN A1C Routine 06/11/2022 11:38 PM WRECKING CAR DRIVER from Last 3 Months or Most Recently Relevant to Health Maintenance Results * PROC ENDOSCOPY-LARYNX (01/01/2025 2:28 PM CDT) Narrative Paula Moore MD - 01/01/2025 2:28 PM CDT Paula Moore MD 01/04/2025 7:05 AM Procedure Note Anesthesia: Lidocaine 2% and Kar-Synephrine 1/2% Endoscopy Type: Flexible Vgufy-Nwcfsmhmrkqdmp-Pkaspzzxftpg Procedure Details: Informed consent was obtained. The [...] tolerated procedure well. Complications: None EBL: none Dr. Carrillo was present for the entire procedure. Balbir Carrillo MD PROCEDURE/MINOR SURGICAL ORDERAB LES Final Result * CT Chest Wo Contrast (01/01/2025 1:22 PM CDT) Anatomical Region Laterality Modality Chest Computed Tomogra phy 01/01/2025 2:06 PM CDT Impressions 01/01/2025 2:13 PM CDT Impression: 1.No acute process identified in the chest. 2.No evidence of metastatic disease in the chest. > Interpreting Provider: Leonel Manjarrez on 01/01/2025 2:13 PM Narrative 01/01/2025 2:13 PM CDT PROCEDURE: CT CHEST WO CONTRAST, DATE/TIME OF EXAM: 01/01/2025 1:22 PM, LOCATION [facility] INDICATION: C01: Cancer of base of tongue (HCC) ADDITIONAL CLINICAL INFORMATION: Ordering Provider Reason For Exam: Technologist Note: Additional: COMPARISON: CT chest 12/04/2023. TECHNIQUE: CT of the chest was performed without contrast according to standard protocol. Findings: Evaluation of visceral and vascular structures is degraded due to lack of intravenous contrast administration. Lower Neck and Axillae: Normal. Lungs: Centrilobular emphysema is present. No suspicious pulmonary nodules are identified. No pleural fluid or pneumothorax is present. Heart and Pericardium: The cardiac chambers are normal in size. No pericardial fluid or thickening is present. The coronary arteries are atherosclerotic. Mitral annular calcifications. Mediastinum and Chinyere: No enlarged lymph nodes are present. Thoracic Vasculature: The aorta and its branch vessels are atherosclerotic. Bones and Chest Wall: Bone windows demonstrate no suspicious lytic or blastic lesions. The visible osseous structures are intact. Degenerative changes are seen in the spine. Upper Abdomen: Partially visualized cholelithiasis. Partially imaged duodenal diverticulum. Otherwise remaining visible portions of the upper abdominal organs are normal. Procedure Note Leonel Manjarrez MD - 01/01/2025 PROCEDURE: CT CHEST WO CONTRAST, DATE/TIME OF EXAM: 01/01/2025 1:22 PM, LOCATION [facility] INDICATION: C01: Cancer of base of tongue (HCC) ADDITIONAL CLINICAL INFORMATION: Ordering Provider Reason For Exam: Technologist Note: Additional: COMPARISON: CT chest 12/04/2023. TECHNIQUE: CT of the chest was performed without contrast according to standard protocol. Findings: Evaluation of visceral and vascular structures is degraded due to lackof intravenous contrast administration. Lower Neck and Axillae: Normal. Lungs: Centrilobular emphysema is present. No suspicious pulmonary nodules are identified. No pleural fluid or pneumothorax is present. Heart and Pericardium: The cardiac chambers are normal in size. No pericardial fluid orthickening is present. The coronary arteries are atherosclerotic. Mitral annular calcifications. Mediastinum and Chinyere: No enlarged lymph nodes are present. Thoracic Vasculature: The aorta and its branch vessels are atherosclerotic. Bones and Chest Wall: Bone windows demonstrate no suspicious lytic or blastic lesions. The visible osseous structures are intact. Degenerative changes are seen inthe spine. Upper Abdomen: Partially visualized cholelithiasis. Partially imaged duodenal diverticulum. Otherwise remaining visible portions of the upperabdominal organs are normal. Impression: 1.No acute process identified in the chest. 2.No evidence of metastatic disease in the chest. > Interpreting Provider: Leonel Manjarrez on 01/01/2025 2:13 PM Balbir Carrillo MD CT ORDERABLES Final Result * (ABNORMAL) CREATININE - POCT INTERFACED (12/04/2023 10:07 AM CDT) Creatinine POCT 0.78 0.30 - 1.30 mg/dL 12/04/2023 10:13 AM [facility] eGFR 78(L) >=90 mL/min/1.7 3 m2 12/04/2023 10:13 AM [facility] Blood BLOOD SPECIMEN / Unknown 12/04/2023 10:07 AM CDT 12/04/2023 10:13 AM [facility] us Major Shearer MD LAB - POINT OF CARE ORDERAB LES Final Result Performing Organization Address [facility]/ZIP Co de Phone Number [facility] [address] [place] [address], [place] [phone] * (ABNORMAL) HEMOGLOBIN A1C (06/11/2022 11:38 PM [facility]) Hemoglobin A1c 9.1(H) <=5.6 % 06/12/2022 7:58 AM [facility] Estimated Average Glucose 214 mg/dL 06/12/2022 7:58 AM [facility] Comment: HbA1c Interpretation: Normal : < 5.7% Pre-diabetes: 5.7-6.4% Diabetes: Equal to or greater than 6.5% Test results diagnostic of diabetes should be repeated for confirmation. Treatment target values recommended by ADA and other clinical organizations should be used to evaluate metabolic control in patients. Reference: [place] [employer] Association, Standards of Care in Diabetes -2020 In patients 70 years and older consider HbA1c target range of 7.0-7.5% (Reference: Jose Bustillo et al. JAMDA. 2012) The Sebia assay for the measurement of HbA1c is a National Glycohemoglobin Standardization Program (NGSP) certified method. Blood BLOOD SPECIMEN / Unknown Venipuncture / Unknown 06/11/2022 11:38 PM WRECKING CAR DRIVER 06/11/2022 11:54 PM [facility] us Josette Nathan MD LAB - CHEMISTRY ORDERABLES Final Result [facility] [address] [place] [address], [place] [phone] from Last 3 Months or Most Recently Relevant to Health Maintenance Insurance MEDICARE [facility] MEDICARE [facility] Advance Directives * Full Code (Latest Code Status on File) Date Activated Date Inactivated Comments 06/11/2022 9:58 PM 06/25/2022 7:54 PM Care Teams Electronic Gluer Relationship Specialty Start Date End Date Alec Zapata MD [address] [place] [address] PCP - General Family Medicine 12/30/24
--- OUTSIDE RECORDS SUMMARY | 2025-02-08 13:52 | XMS_ITS | Continuity of Care Document ---
Author Organization [facility] Address [address] [place] [address] Phone Care Team Providers Care Claims Consultant Name Role Phone Javid Mendez Unavailable Unavailable Procedures Procedure Date Office/outpatient Visit, Est Eye Exam & Treatment Eye Exam & Treatment Eye Exam & Treatment Refraction Advance Directives Directive Yes / No Effective Date File Name No Information Encounters Encounter Description Practice Location Reason(s) For Visit Diagnoses Date Provider Providers Copied on Encounter Office/outpat ient Visit, Est [facility], [address], [place], [place], [id number], [place] tel:[phone] [facility] No Information 1-201 0 Krishnasamy Javid. [address] [facility] [address], [place], [address], [place]. tel:[phone] [facility], [address], [place], [place], [address], [place] tel:[phone] [facility] No Information 0-200 9 Krishnasamy Javid. [address] [facility] [address], [place], [address], [place]. tel:[phone] [facility], [address], [place], [place], [address], [place] tel:[phone] [facility] No Information Sep-2 4200 8 Vanessa Hua. [address] [facility] [address], [place], [address], [place]. tel:[phone] [facility] Eye [facility], [address], [place], [place], [address], [place] tel:[phone] [facility] No Information Mar- 7 Fahadanne Yanes. [address] [facility], [address], [place], [place], [address], [place]. tel:[phone] Family History Family Member Type Diagnosis Age At Onset No Information Payers Payer name Insurance type Covered libertarian ID Tahir kernbrennen(s) [facility] [id number] Social History Type Description Quantity Date Captured [...]
--- OUTSIDE RECORDS SUMMARY | 2025-02-08 13:52 | XMS_ITS ---
Author Organization [facility] Address [address] [place] [address] Care Team Providers Care Clinic Charge Nurse Name Role Phone Alec Zapata MD Primary Care Provider [phone] Active Problems Problem Noted Date Diagnosed Date [...] Entry Manual Entr y Dose Length Product 2,555 mGy-cm 2,555 mGy-cm 0 mGy-cm Resolved Problems Problem Noted Date Diagnosed Date Resolved Date Sinusitis 07/02/2022 07/30/2022
--- OUTSIDE RECORDS SUMMARY | 2025-02-08 13:52 | XMS_ITS | Patient Health Record ---
Author Organization [facility] Address [address] [place], [place] [address] Care Team Providers Care Line Supply Name Role Phone RAFFI MORA Unavailable [phone] Mariana Khan Unavailable Unavailable Allergies Allergen (clinical drug ingredient) Drug/Non Drug Allergy documented on EMR Reaction Allergy Type Onset Date Status Product containing sulfonamide (product) (uncoded) Unknown Allergy 09/03/2022 active Reason For Referral No Information Medications Medication SIG (Take, Route, Frequency, Duration) Notes Start Date End Date Status Levothyroxine Sodium 50 MCG Oral; Duration: 30 Days Active Escitalopram Oxalate 10 MG TAKE 1 TABLET BY MOUTH ONCE DAILY Oral; Duration: 90 Days Active Rosuvastatin Calcium 5 MG Oral; Duration: 90 Days Active Pilocarpine HCl 5 MG Oral; Duration: 30 Days Active Immunizations Vaccine Route Administration Date Status Comme nts Influenza, high dose seasonal Unknown 05/10/2023 Admini stered Vital Signs Height-cm 154.94 cm 02/08/2025 Weight-kg 54.43 kg 02/08/2025 Height 61.00 in 02/08/2025 Weight 120 lbs 02/08/2025 BMI 22.67 kg/m2 02/08/2025 Encounters Encounter Location Date Provider Diagnosis [facility] [place] [address] [place], [place] [phone] 02/08/2025 RAFFI MORA Tinea unguium B35.1 ; Pain in right toe(s) M79.674 ; Pain in left toe(s) M79.675 ; Atherosclerosis of sioux arteries of extremities with intermittent claudication, bilateral legs I70.213 and Type 2 diabetes mellitus with other circulatory complications E11.59 [facility] [place] [address] [place] [id number] 02/10/2024 RAFFI SNOOK Tinea unguium B35.1 ; Pain in right toe(s) M79.674 ; Pain in left toe(s) M79.675 and Type 2 diabetes mellitus with other circulatory complications E11.59 [facility] [place] [facility] [address] [place] [id number] 05/11/2024 RAFFI SNOOK Tinea unguium B35.1 ; Pain in right toe(s) M79.674 ; Pain in left toe(s) M79.675 ; Atherosclerosis of sioux arteries of extremities with intermittent claudication, bilateral legs I70.213 and Type 2 diabetes mellitus with other circulatory complications E11.59 [facility] [place] [address] [place] [id number] 08/10/2024 RAFFI SNOOK Tinea unguium B35.1 ; Pain in right toe(s) M79.674 ; Pain in left toe(s) M79.675 and Atherosclerosis of sioux arteries of extremities with intermittent claudication, bilateral legs I70.213 [facility] [place] [facility] [address] [place] [id number] 11/09/2024 RAFFI SNOOK Tinea unguium B35.1 ; Pain in right toe(s) M79.674 ; Pain in left toe(s) M79.675 and Atherosclerosis of sioux arteries of extremities with intermittent claudication, bilateral [...] any subungual debris and necrotic tissue removed 11/09/2024 Pain in right toe(s) (ICD-10 - M79.674) 02/08/2025 Tinea unguium (ICD-10 - B35.1) NAIL DEBRIDEMENT: Nails 1-5 Bilateral were debrided extensively with nail nippers and emery board, reducing length and girth to pink healthy tissue with any subungual debris and necrotic tissue removed 11/09/2024 Pain in left toe(s) (ICD-10 - M79.675) 02/08/2025 Pain in right toe(s) (ICD-10 - M79.674) [...] toe(s) (ICD-10 - M79.675) 08/10/2024 Atherosclerosis of sioux arteries of extremities with intermittent claudication, bilateral legs (ICD-10 - I70.213) 11/09/2024 Atherosclerosis of sioux arteries of extremities with intermittent claudication, bilateral legs (ICD-10 - I70.213) 02/08/2025 Pain in left toe(s) (ICD-10 - M79.675) 02/08/2025 Atherosclerosis of sioux arteries of extremities with intermittent claudication, bilateral legs (ICD-10 - I70.213) 05/11/2024 Atherosclerosis of sioux arteries of extremities with intermittent claudication, bilateral [...] as well as the Amputation Prevention Guide. 02/08/2025 Type 2 diabetes mellitus with other circulatory [...] Of Treatment Next Appt Details Provider Name:RAFFI ABBY, 01:00:00 PM, [address], [place], [place], [id number], Insurance Providers Payer Name Payer Address Payer Phone Subscriber Number Group Number Insured Name Patient Relationship to Insured Coverage Start Date Coverage End Date Medicare Part B [place] [address] [place] [phone] [id number] IAM WAGNER Self - patient is the insured [facility] ([facility]) ATTN CLAIMS [address] [place] [address] [id number] IAM WAGNER Self - patient is the insured Medical (General) History Medical History History ICD Code Diabetic
[2025-02-08 15:38] LABS: Add Urine Microscopic? YES; Appearance Urine Cloudy (Clear); Glucose Urine UA Negative (Negative); Leukocyte Esterase Ur 3+ LEU/UL (Negative); Need Manual Microscopic Reviewed; Nitrate Urine Negative (Negative); Non Pathogenic Casts 0-2; Specific Grav Ur 1.012 (1.001-1.035)
[2025-02-08 16:07] LABS: Free T3 2.44 pg/mL (2.45-5.93); Free T4 Free Thyroxine 1.00 ng/dL (0.78-2.19)
[2025-02-08 16:08] LABS: Thyroid Stimulating Hormone 6.910 uIU/mL (0.465-4.680)
== END 2025-02-08 13:46 | disposition home or self-care (01) ==
PROVIDERS: Physician Assistant; PCP Family Medicine; Visit Provider Physician Assistant Medical
DX: R30.0 Dysuria (principal); E03.9 Hypothyroidism, unspecified; E07.9 Disorder of thyroid, unspecified
CPT/HCPCS: 36415; 81001; 84439; 84443; 84481; 87086

== ENCOUNTER 2025-04-12 07:49 | Outpatient (CLI) | payer MEDICARE, BC, SELFPAY ==
--- OUTSIDE RECORDS SUMMARY | 2010-03-01 05:45 | XMS_ITS | Continuity of Care Document ---
Author Organization [facility] Address [address] [place] [address] Phone Care Team Providers Care [employer] Name Role Phone Javid Mendez Unavailable Unavailable Procedures Procedure Date Office/outpatient Visit, Est Eye Exam & Treatment Eye Exam & Treatment Eye Exam & Treatment Refraction Advance Directives Directive Yes / No Effective Date File Name No Information Encounters Encounter Description Practice Location Reason(s) For Visit Diagnoses Date Provider Providers Copied on Encounter Office/outpat ient Visit, Est [facility], [address], [place], [place], [address], [place] tel:[phone] [facility] No Information 1-201 0 Krishnasamy Javid. [address] [facility] [address], [place], [address], [place]. tel:[phone] [facility], [address], [place], [place], [address], [place] tel:[phone] [facility] No Information 0-200 9 Krishnasamy Javid. [address] [facility] [address], [place], [address], [place]. tel:[phone] [facility], [address], [place], [place], [address], [place] tel:[phone] [facility] No Information Sep-2 4200 8 Vanessa Hua. [address] [facility] [address], [place], [address], [place]. tel:[phone] [facility], [address], [place], [place], [address], [place] tel:[phone] [facility] No Information Mar- 7 Fahadanne Yanes. [address] [facility], [address], [place], [place], [address], [place]. tel:[phone] Family History Family Member Type Diagnosis Age At Onset No Information Payers Payer name Insurance type Covered democrat ID Tahir kernbrennen(s) [facility] [id number] Social History Type Description Quantity Date Captured [...]
--- OUTSIDE RECORDS SUMMARY | 2025-04-12 08:11 | XMS_ITS | Clinical Summary ---
Author Organization [facility] Address [address] [address] Phone Care Team Providers Care Manager Truck Name Role Phone Todd Gonzalez MD Primary [...] 1-dose 75+ series) 2020 Influenza Immunization (#1) 2025 SARS-COV-2 Immunization (1 - 2023- season) 2025 Hepatitis B Immunization Aged Out No [...] patient's age to complete this topic Insurance [facility] MEDICARE Care Teams Manager Truck Relationship Specialty Start Date End Date Todd Gonzalez MD [facility] [place] [address] PCP - General Cnc Machine Programmer 01/06/21
--- OUTSIDE RECORDS SUMMARY | 2025-04-12 08:12 | XMS_ITS ---
Author Organization [facility] Address [address] [facility] [place] [address] Care Team Providers Care Tub Rider Name Role Phone Alec Zapata MD Primary Care Provider [phone] Active Problems Problem Noted Date Diagnosed Date [...]
--- OUTSIDE RECORDS SUMMARY | 2025-04-12 08:12 | XMS_ITS | Clinical Summary ---
Author Organization [facility] THE Football App Address [address] [facility] [place] [address] Care Team Providers Care Rn Pain Management Name Role Phone Alec Zapata MD Primary Care Provider [phone] Source Comments [facility],non-owned Affiliates and Associated Physician Practices is amultiple site organization consisting of ambulatory clinics and hospital sitesin [place], [place], [place] and [place]. This disclosure is being madepursuant to the Care Everywhere program and may not contain all information available regarding this patient. Last updated 18.[facility] Football App Allergies Active Allergy Reactions Criticality Noted Date [...] as needed Active SALINE NASAL SPRAY NA Maypearl 1 spray into the nose as needed [...] Encounters Date Type Department Care Team Description 04/06/2025 Telephone [facility] [address] [place] [address] Lorin Pena RN Appointment 03/31/2025 Telephone [facility] - Hematology/Oncology [address] [place] [address] Claire Stewart MD Appointment (See notes) 03/30/2025 Telephone [facility] - Hematology/Oncology [address] [place] [address] Claire Stewart MD Appointment (See notes) from Last 3 Months Immunizations Immunization Administration Dates Next Due COVID MODERNA 12+ yr 50g/0.5mL 04/23/2024 COVID PFIZER 12+YR 30MCG/0.3mL 04/19/2023 COVID [...] Info) Description 05/14/2025 10:40 AM CDT Appointment [facility] [address] [place] [phone] Gary Pugh MD [address] [place] [address] 05/14/2025 11:00 AM CDT Appointment [facility] [address] [place] [phone] Gary Pugh MD [address] [place] [address] 05/14/2025 1:45 PM CDT Office Visit [facility] - ENT [address] [place] [phone] Balbir Carrillo MD [address] [place] [address] 05/17/2025 11:00 AM CDT Appointment [facility] [address] [place] [address] Major Shearer MD [address] [place] [address] 07/01/2025 10:40 AM CERTIFIED MEDICAL AIDE Office Visit [facility] - Hematology/Oncology [address] [place] [address] Claire Stewart MD [address] [place] [address] Health Maintenance Due Date Last Done Comments [...] CREATININE 12/03/20242023, 06/27/2023, 06/03/2023, Additional history exists COVID-19 VACCINE ( season) 2025 04/23/2024, 04/19/2023, 08/01/2022, Additional history exists INFLUENZA VACCINE (#1) 2025 [...] this topic Medical Devices Implanted Type Area Grease Cup Filler Device Identifier Shelf Expiration Date Model / Serial / Lot Port Implinfn Powerport Clrvu Argd Aviva Implanted:Qty: 1 on 05/11/2022 at [facility] Right: Chest Wall [employer] 06/20/2023 [id number] / / [id number] Procedures Procedure Name Priority Date/Time Associated Diagnosis Comments CREATININE - POCT INTERFACED Routine 12/04/2023 10:07 AM CDT HEMOGLOBIN A1C Routine 06/11/2022 11:38 PM CERTIFIED MEDICAL AIDE from Last 3 Months or Most Recently Relevant to Health Maintenance Results * (ABNORMAL) CREATININE - POCT INTERFACED (12/04/2023 10:07 AM CDT) Creatinine POCT 0.78 0.30 - 1.30 mg/dL 12/04/2023 10:13 AM CDT [facility] eGFR 78(L) >=90 mL/min/1.7 3 m2 12/04/2023 10:13 AM T [facility] Blood BLOOD SPECIMEN / Unknown 12/04/2023 10:07 AM CDT 12/04/2023 10:13 AM CDT us Major Shearer MD LAB - POINT OF CARE ORDERAB LES Final Result [address] [address], [facility] [phone] * (ABNORMAL) HEMOGLOBIN A1C (06/11/2022 11:38 PM CERTIFIED MEDICAL AIDE) Hemoglobin A1c 9.1(H) <=5.6 % 06/12/2022 7:58 AM [facility] Estimated Average Glucose 214 mg/dL 06/12/2022 7:58 AM [facility] Comment: HbA1c Interpretation: Normal : < 5.7% Pre-diabetes: 5.7-6.4% Diabetes: Equal to or greater than 6.5% Test results diagnostic of diabetes should be repeated for confirmation. Treatment target values recommended by ADA and other clinical organizations should be used to evaluate metabolic control in patients. Reference: [place] Diabetes Association, Standards of Care in Diabetes -2020 In patients 70 years and older consider HbA1c target range of 7.0-7.5% (Reference: Jose Bustillo, et al. JAMDA. 2012) The Sebia assay for the measurement of HbA1c is a National Glycohemoglobin Standardization Program (NGSP) certified method. Blood BLOOD SPECIMEN / Unknown Venipuncture / Unknown 06/11/2022 11:38 PM CERTIFIED MEDICAL AIDE 06/11/2022 11:54 PM CERTIFIED MEDICAL AIDE Josette Nathan MD LAB - CHEMISTRY ORDERABLES Final Result [facility] [address] [place] [address], [facility] [phone] from Last 3 Months or Most Recently Relevant to Health Maintenance Insurance MEDICARE [facility] MEDICARE [facility] Advance Directives * Full Code (Latest Code Status on File) Date Activated Date Inactivated Comments 06/11/2022 9:58 PM 06/25/2022 7:54 PM Care Teams Rn Pain Management Relationship Specialty Start Date End Date Alec Zapata MD [address] [employer] [address] [place] [address] PCP - General Family Medicine 12/30/24
--- OUTSIDE RECORDS SUMMARY | 2025-04-12 08:12 | XMS_ITS | Patient Health Record ---
Author Organization [facility] Address [address] [place], [place] [id number] Care Team Providers Care Gas Examiner Name Role Phone RAFFI OMRA Unavailable [phone] Mariana Khan Unavailable Unavailable Allergies Allergen (clinical [...] Location Date Provider Diagnosis [facility] [place] [address] [place], [place] [id number] 05/11/2024 RAFFI MORA Tinea unguium B35.1 ; Pain in right toe(s) M79.674 ; Pain in left toe(s) M79.675 ; Atherosclerosis of ambler arteries of extremities with intermittent claudication, bilateral legs I70.213 and Type 2 diabetes mellitus with other circulatory complications E11.59 [facility] [place] [address] [place] [phone] 08/10/2024 RAFFI SNOOK Tinea unguium B35.1 ; Pain in right toe(s) M79.674 ; Pain in left toe(s) M79.675 and Atherosclerosis of ambler arteries of extremities with intermittent claudication, bilateral legs I70.213 [facility] [place] [address] [place] [id number] 11/09/2024 RAFFI SNOOK Tinea unguium B35.1 ; Pain in right toe(s) M79.674 ; Pain in left toe(s) M79.675 and Atherosclerosis of ambler arteries of extremities with intermittent claudication, bilateral legs I70.213 [facility] [place] [address] [place] [id number] 02/08/2025 RAFFI SNOOK Tinea unguium B35.1 ; Pain in right toe(s) M79.674 ; Pain in left toe(s) M79.675 ; Atherosclerosis of ambler arteries of extremities with intermittent claudication, bilateral [...] toe(s) (ICD-10 - M79.675) 08/10/2024 Atherosclerosis of ambler arteries of extremities with intermittent claudication, bilateral legs (ICD-10 - I70.213) 11/09/2024 Atherosclerosis of ambler arteries of extremities with intermittent claudication, bilateral legs (ICD-10 - I70.213) 02/08/2025 Pain in left toe(s) (ICD-10 - M79.675) 02/08/2025 Atherosclerosis of ambler arteries of extremities with intermittent claudication, bilateral legs (ICD-10 - I70.213) 05/11/2024 Atherosclerosis of ambler arteries of extremities with intermittent claudication, bilateral [...] Appt Details Provider Name:RAFFI MORA, 01:00:00 PM, [address], [facility], [place], [place], [id number], Insurance Providers Payer Name Payer Address Payer Phone Subscriber Number Group Number Insured Name Patient Relationship to Insured Coverage Start Date Coverage End Date Medicare Part B [place] [address] [place] [phone] [id number] IAM WAGNER Self - patient is the insured [facility] ATTN CLAIMS [address] [place] [address] [id number] IAM WAGNER Self - patient is the insured Medical (General) History Medical History History ICD Code Diabetic
[2025-04-12 09:03] LABS: Thyroid Stimulating Hormone 8.440 uIU/mL (0.465-4.680)
[2025-04-12 10:09] LABS: Free T4 Free Thyroxine 1.32 ng/dL (0.78-2.19)
== END 2025-04-12 07:50 | disposition home or self-care (01) ==
PROVIDERS: PCP Family Medicine; Visit Provider Student in an Organized Health Care Education/Training Program
DX: E03.9 Hypothyroidism, unspecified (principal)
CPT/HCPCS: 36415; 84439; 84443

== ENCOUNTER 2025-05-27 14:51 | Outpatient (CLI) | payer MEDICARE, BC, SELFPAY ==
--- OUTSIDE RECORDS SUMMARY | 2010-03-01 04:45 | XMS_ITS | Continuity of Care Document ---
Author Organization [facility] Address [address] [place] [address] Phone Care Team Providers Care Roving Hand Name Role Phone Javid Mendez Unavailable Unavailable Procedures Procedure Date Office/outpatient Visit, Est Eye Exam & Treatment Eye Exam & Treatment Eye Exam & Treatment Refraction Advance Directives Directive Yes / No Effective Date File Name No Information Encounters Encounter Description Practice Location Reason(s) For Visit Diagnoses Date Provider Providers Copied on Encounter Office/outpat ient Visit, Est [facility], [address], [place], [place], [address], [place] tel:[phone] [facility] No Information 1-201 0 Krishnasamy Javid. [address] [facility] [address], [place], [address], [place]. tel:[phone] [facility], [address], [place], [place], [address], [place] tel:[phone] [facility] No Information 0-200 9 Krishnasamy Javid. [address] [facility] [address], [place], [address], [place]. tel:[phone] [facility], [address], [place], [place], [address], [place] tel:[phone] [facility] No Information Sep-2 4200 8 Vanessa Hua. [address] [facility] [address], [place], [address], [place]. tel:[phone] [facility], [address], [place], [place], [address], [place] tel:[phone] [facility] No Information Mar- 7 Fahadanne Yanes. [address] [facility], [place], [place], [address], [place]. tel:[phone] Family History Family Member Type Diagnosis Age At Onset No Information Payers Payer name Insurance type Covered republican ID Tahir kernbrennen(s) [facility] [id number] Social History Type Description Quantity Date Captured [...]
--- OUTSIDE RECORDS SUMMARY | 2025-05-10 07:00 | XMS_ITS ---
Author Organization [facility] Address [address] [place], [place] [phone] Care Team Providers Care Package Pick Up Name Role Phone RAFFI MORA Unavailable [phone] AngelicaMariana taylor Unavailable Unavailable Allergies Allergen (clinical drug ingredient) Drug/Non Drug Allergy documented on EMR Reaction Allergy Type Onset Date Status Substance with sulfonamide structure and antibacterial mechanism of action (substance) Product containing sulfonamide (product) (uncoded) Unknown Allergy 09/03/2022 active REASON FOR VISIT Patient presents for at-risk foot care . The patient has painful toenails that are causing difficulty with ambulation and shoegear. The onset is gradual. The patient has diabetes mellitus Medications Medication SIG (Take, Route, Frequency, Duration) Notes Start Date End Date Status Rosuvastatin Calcium 5 MG Tablet Oral; Duration: 90 Days Acti ve Pilocarpine HCl 5 MG Tablet Oral; Duration: 30 Days Active Levothyroxine Sodium 50 MCG Tablet Oral; Duration: 30 Days Acti ve Escitalopram Oxalate 10 MG Tablet TAKE 1 TABLET BY MOUTH ONCE DAILY Oral; Duration: 90 Days Active Social History Social History Additional Details Category Social Info Options Details Migrated Social History Migrated Social History History of tobacco use : , Smoking Status : Former tobacco user Vital Signs Height 61.00 in 05/10/2025 Weight 120 lbs 05/10/2025 BMI 22.67 kg/m2 05/10/2025 Height-cm 154.94 cm 05/10/2025 Weight-kg 54.43 kg 05/10/2025 Encounters Encounter Location Date Provider Diagnosis [facility] [place] [address] [place], [place] [id number] 05/10/2025 RAFFI MORA Tinea unguium B35.1 ; Pain in right toe(s) M79.674 ; Pain in left toe(s) M79.675 ; Atherosclerosis of chickaloon arteries of extremities with intermittent claudication, bilateral legs I70.213 and Type 2 diabetes mellitus with other circulatory complications E11.59 Assessments Encounter Date Diagnosis (ICD Code) Assessment Notes Treatment Notes Treatment Clinical Notes Section Notes 05/10/2025 Tinea unguium (ICD-10 - B35.1) NAIL DEBRIDEMENT: Nails 1-5 Bilateral were debrided extensively with nail nippers and emery board, reducing length and girth to pink healthy tissue with any subungual debris and necrotic tissue removed 05/10/2025 Pain in right toe(s) (ICD-10 - M79.674) 05/10/2025 Pain in left toe(s) (ICD-10 - M79.675) 05/10/2025 Atherosclerosis of chickaloon arteries of extremities with intermittent claudication, bilateral legs (ICD-10 - I70.213) 05/10/2025 Type 2 diabetes mellitus with other circulatory [...] sooner if problems develop. Provider Name:RAFFI MORA, 11:10:00 AM, [address] [facility], [place], [place], [id number], History and Physical Notes * HPI (History of Present Illness) Category Sub-Category Detail Notes Category Not es HPI General care Patient presents to the office for diabetic foot care. Patient states that their nails are thickened, elongated and painful. Patient states that it is aggravated by shoe gear. Onset is gradual. Patient denies taking blood thinners., Date last seen by Dr. Zapata was 03/2025. Examination Category Sub-Category Detail Notes Category Not [...] inversion, and eversion in bilateral lower extremities Progress Notes * TERRY WAGNEROB:1945 (79 yo F)Acc No.[id number]:05/10/2025 Patient: IAM VILLAFANA Provider: Mukul Mora DPM :1945 A ge:79 Y S ex:Female Date:05/10/2025 Address:[address] [place] [address] Subjective: * Chief Complaints: * Angel saleem presents for at-risk foot care . The patient has painful toenails that are causing difficulty with ambulation and shoegear. The onset is gradual. The patient has diabetes mellitus * HPI: H PI: General care Angel saleem presents to the office for diabetic foot care. Patient states that their nails are thickened, elongated and painful. Patient states that it is aggravated by shoe gear. Onset is gradual. Patient denies taking blood thinners., Date last seen by Dr. Zapata was 03/2025.. * Medical History: Diabetic Medical History Verified * Surgical History: Denies Past Surgical History. Surgical History verified. * Hospitalization/Major Diagno stic Procedure: Denies Past Hospitalization. Hospitalization Verified. * Family History: N o Family History documented.. F amily History Verified.. * Social History: M igrated Social History: M igrated Social History: History of tobacco use : , Smoking Status : Former tobacco user. Social History Verified. * Medications: T akingRosuvastatin Calcium 5 MG Tablet Oral Pilocarpine HCl 5 MG Tablet Oral Levothyroxine Sodium 50 MCG Tablet Oral Escitalopram Oxalate 10 MG Tablet TAKE 1 TABLET BY MOUTH ONCE DAILY Oral Medication List reviewed and reconciled with the patientTaking Rosuvastatin Calcium 5 MG Tablet Oral Taking Pilocarpine HCl 5 MG Tablet Oral Taking Levothyroxine Sodium 50 MCG Tablet Oral Taking Escitalopram Oxalate 10 MG Tablet TAKE 1 TABLET BY MOUTH ONCE DAILY Oral Medication List reviewed and reconciled with the patient * Allergies: P roduct containing sulfonamide (product): Allergy - Onset Date 09/03/2022yesAllergies Verified. Objective: * Vitals: S hoe Size: 6, Wt: 120 lbs, Wt-k.43 kg, Ht: 61.00 in, Ht-cm: 154.94 cm, BMI: 22.67 Index, Body Surface Area: 1.53. * Examination: P hysical Examination: General appearance: [...] - M79.675 4 . A therosclerosis of chickaloon arteries of extremities with intermittent claudication, bilateral [...] well as the Amputation Prevention Guide. * Preventive Medicine: Screenings: F all risk screening F all Risk Assessment: N o falls in the past year. * Follow Up: 1 0 - 12 weeks (Reason: At-Risk Foot care, sooner if problems develop.) Billing Information: * Procedure Codes: * Electronic signature of RAFFI MORA DPM on 05/27/2025 at 08:40 PM VEHICLE [employer] S[employer]ER Sign off status: Pending * Provider: Mukul Mora DPM Date: Generated for Joana spence/Anny/Fabrice on: 07/27/2024 08:40 PM VEH[employer]ER
--- NOTE | ~2025-05-27 | DEXA_ITS ---
Bone Density Report Name: IAM WAGNER Age: 79 Sex: Female Ethnicity: White Date of : 1945 Indication: postmenopausal osteoporosis; height loss; cancer; hysterectomy; Referring Provider: LYDIA BEST Study: Bone densitometry was performed. Exam Date: May 27, 2025 Accession number: [id number] Bone Density: Region BMD T-score Z-score Classification AP Spine(L1-L4) 0.632 -3.8 -1.1 Osteoporosis Femoral Neck (Left) 0.444 -3.6 -1.3 Osteoporosis Total Hip (Left) 0.539 -3.3 -1.2 Osteoporosis Femoral Neck (Right) 0.393 -4.1 -1.8 Osteoporosis Total Hip (Right) 0.479 -3.8 -1.7 Osteoporosis Total Hip Mean 0.509 -3.6 -1.5 Osteoporosis World Health Organization criteria for BMD impression classify patients as: Normal (T-score at or above -1.0), Osteopenia (T-score between -1.0 and -2.5), or Osteoporosis (T-score at or below -2.5). 10-year Fracture Risk: FRAX not reported because: Some T-score for Spine Total or Hip Total or Femoral Neck at or below -2.5 Previous Exams: Region Exam Age BMD T-score BMD Change BMD Change Date g/cm2 vs Baseline vs Previous AP Spine (L1-L4) 05/27/2025 79 0.632 -3.8 0.001 (0.1%) 0.001 (0.1%) 02/19/2022 76 0.631 -3.8 Total Hip(Left) 05/27/2025 79 0.539 -3.3 0.001 (0.3%) 0.001 (0.3%) 02/19/2022 76 0.537 -3.3 Total Hip(Right) 05/27/2025 79 0.479 -3.8 -0.086 (-15.3% -0.086 (-15.3% 02/19/2022 76 0.565 -3.1 *Denotes significance at 95% confidence level, LSC for AP Spine = 0.022 g/cm2, LSC for Total Hip = 0.027 g/cm2 Clinical Information Provided by Patient: Has used the following medications: Forteo (i.e. parathyroid hormone), HRT (i.e. estrogen/hormone therapy), Vitamin D, Calcium Has the following medical conditions: Cancer, Hysterectomy Patient maximum height was 62 Menopause Age: 38 Drinks caffeinated beverages Onset of menses at age 12 Number of children 1 Impression: The patient has osteoporosis, based on the Right Femoral Neck T-score. The BMD for the Total Hip(Right) decreased, changing by -15.3% since the last DXA exam. Discussion: INCREASED RISK OF FRACTURE. BONE DENSITY IS UNDESIRABLY LOW AT ONE OR MORE SKELETAL SITES, CONSISTENT WITH POSTMENOPAUSAL OSTEOPOROSIS. This patient's lowest T-score meets the World Health Organization's (WHO) criteria for osteoporosis at one or more sites (T-score -2.5 or below). In untreated patients, the risk of osteoporotic fracture increases approximately two-fold for each 1.0 SD decrease in T-score. Low bone density is not the only risk factor for fracture; also consider factors such as patient's age, frailty or poor health, risk of falling, risk of injury, previous osteoporotic fracture, family history of osteoporosis, cigarette smoking, low body weight, etc. Not everyone with low bone mineral density has osteoporosis; osteomalacia and other metabolic bone disorders should also be considered. Patients who have osteoporosis should be evaluated for specific diseases and conditions (secondary causes) that may cause or contribute to bone loss. The [place] Association of Clinical Endocrinologists (AACE) and National Osteoporosis Foundation (NOF) recommend pharmacologic intervention for all postmenopausal women whose T-score is in this range. The patient should follow a healthful lifestyle (good nutrition with adequate calcium and vitamin D, and appropriate weight-bearing exercise). Follow-Up: Consider a repeat BMD and Vertebral Fracture Assessment (VFA) exam in 2 years or sooner if medically necessary, to reassess this patient's status. Reported by: MIGUELINA on 05/27/2025 3:29:00 PM. Reviewed, dictated and finalized at location A.
--- OUTSIDE RECORDS SUMMARY | 2025-05-27 20:40 | XMS_ITS | Clinical Summary ---
Author Organization [facility] Address [address] [place] [address] Care Team Providers Care Predictive Maintenance Technician Name Role Phone Alec Zapata MD Primary Care Provider [phone] Source Comments [facility],non-owned Affiliates and Associated Physician Practices is amultiple site organization consisting of ambulatory clinics and hospital sitesin [place], [place], [place] and [place]. This disclosure is being madepursuant to the Care Everywhere program and may not contain all information available regarding this patient. Last updated 18.[facility] Allergies Active Allergy Reactions Criticality Noted Date Comments Diclofenac Epolamine Itching 04/04/2022 Nitrofurantoin Other High 12/10/2024 Pilocarpine Unknown 05/14/2025 Sulfa Drugs Itching,Urticaria Medium 04/04/2022 Medications * Be aware that medications may not be up to date on this document. Alwaysverify current medications with the patient. escitalopram (Lexapro) 10 MG tablet Take 1 (one) tablet by mouth once daily 11/21/19 23 Active acetaminophen (Tylenol) 500 MG tablet Take [...] 1 (one) tablet by mouth once daily 04/09/20 23 Active Mouthwashes (BIOTENE DRY MOUTH MT) by Mouth/Throat route as needed Active SALINE NASAL SPRAY NA [place] 1 spray into the nose as needed Active levothyroxine (Synthroid) 75 MCG tablet Take 1 (one) tablet by mouth daily before breakfast 05/11/20 25 Active XYLITOL MT 1 tablet by Mouth/Throat route at bedtime Active phenol 1.4 % 3-4 sprays by Mouth/Throat route every 1 hour as needed Active diclofenac sodium (Aspercreme Arthritis Pain) 1 % gel Apply to affected area 4 times daily Active benzocaine-men thol (Chloraseptic) 6-10 MG lozenge Take by mouth as needed for Sore Throat 025 Discontin ued(Tx Complete) levothyroxine (Synthroid) 50 MCG tablet Take 1 (one) tablet by mouth once daily 12/11/19 25 025 Discontin ued(Dose Adjustmen t) pilocarpine HCl (Salagen) 5 MG tabletIndicati ons:Xerostomia Take 1 (one) tablet by mouth 3 times daily Reasons: Dry Mouth 90 tablet 2 01/05/20 25 025 Discontin ued(List Clean-Up) mirabegron ER 24hr (Myrbetriq) 25 MG tablet Take 1 (one) tablet by mouth once daily 03/03/20 25 025 Discontin ued(Tx Complete) Active Problems Problem Noted Date Diagnosed Date 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 Skin lesion 05/17/2025 Acute radiation dermatitis 02/14/2023 Seborrheic keratoses 02/14/2023 [...] Encounters Date Type Department Care Team Description 05/18/2025 Telephone [facility] [address] [place] [address] Lorin Pena, casting house laborer 05/17/2025 10:54 AM CDT - 05/17/2025 11:59 PM CDT Hospital Encounter [facility] [address] [place] [address] Major Shearer MD Discharge Disposition: Home or Self Care 05/14/2025 11:30 AM CDT Office Visit [facility] - ENT [address] [place] [address] Gary Pugh MD [place], Sean T, MD 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) 05/14/2025 10:18 AM CDT - 05/14/2025 11:59 PM CDT Hospital Encounter [facility] CAT SCAN [address] [place] [address] Gary Pugh MD Discharge Disposition: Home or Self Care 05/14/2025 10:18 AM CDT - 05/14/2025 11:59 PM CDT Hospital Encounter [facility] CAT SCAN [address] [place] [address] Gary Pugh MD Discharge Disposition: Home or Self Care 05/14/2025 Travel 04/30/2025 Telephone [facility] [address] [place] [address] Lorin Pena, PURVI Appointment 04/06/2025 Telephone [facility] [address] [place] [address] Lorin Pena, PURVI Appointment 03/31/[address] [facility] - Hematology/Oncology [address] [place] [phone] Claire Stewart MD Appointment (See notes) 03/30/[address] [facility] - Hematology/Oncology [address] [place] [address] Claire Stewart MD Appointment (See notes) from Last 3 Months Immunizations Immunization Administration Dates Next Due COVID MODERNA 12+ yr 50mcg/0.5mL 04/23/2024 COVID PFIZER 12+YR 30MCG/0.3mL 04/19/2023 COVID PFIZER BIVALENT 12Y+ 30mcg/0.3ML 08/01/2022 Covid Moderna booster monova lent 6y-11yr 0.5ml 02/12/2022,05/14/2021,10/11/2020,2020 Covid Moderna primary monova lent 12+ yr 0.5mL 05/14/2021,10/11/2020,08/31/2020 INFLUENZA VACCINE 05/01/2022,04/19/2020,05/05/20 18 INFLUENZA VACCINE, HIGH-DOSE , QUADR. (FLUZONE HIGH-DOSE QUADRIVALENT; 65Y+), 0.7 ML (HD-IIV4) 05/22/2023,05/10/2023,05/01/2022,2020,04/06/2020 INFLUENZA VACCINE, HIGH-DOSE , TRIV. (FLUZONE HIGH-DOSE TRIVALENT; 65Y+) (HD-IIV3) 04/23/2024,05/05/2018 INFLUENZA VACCINE, QUADR. (F LUZONE; FLULAVAL; FLUARIX; AFLURIA QUADRIVALENT; 6MO+), 0.5 ML (IIV4) 05/06/2019 MODERNA SARS-COV-2 COVID-19 VACCINE 0.25ML 02/12/2022 PNEUMOCOCCAL PCV20 CONJ VAC IM 05/20/2012 Pneumococcal Pcv13 Conj 04/06/2020 TDAP (7yrs+) 09/17/2002 ZOSTER VACCINE, LIVE 02/10/2009 [...] Sign Reading Time Taken Comments Blood Pressure 114/54 05/17/2025 11:37 AM CDT Pulse 73 05/17/2025 11:37 AM CDT Temperature 35.9 C (96.6 F) 05/17/2025 11:37 AM CDT Respiratory Rate 18 05/17/2025 11:37 AM CDT Oxygen Saturation 96% 05/17/2025 11:37 AM CDT Inhaled Oxygen Concentration - - Weight 58.7 kg (129 lb 6.4 oz) 05/17/2025 11:37 AM CDT Height 157.5 cm (5' 2) 05/14/2025 11:19 AM CDT Body Mass Index 23.67 05/14/2025 11:19 AM CDT Plan of Treatment Upcoming Encounters Date Type Department Care Team (Late st Contact Info) Description 08/05/2025 8:40 AM MANAGER APPLICATION DEVELOPMENT Office Visit [facility] - Hematology/Oncology [address] [place] [address] Claire Stewart MD [address] [place] [address] 11/12/2025 1:45 PM CDT Office Visit [facility] - ENT [address] [facility], [place] [phone] Balbir Carrillo MD [address] [facility] [address] [place] [address] Health Maintenance Due Date Last Done Comments [...] PROTEIN SCREENING 07/22/2024 COVID-19 VACCINE ( season) 2025 04/23/2024, 04/19/2023, 08/01/2022, Additional history exists INFLUENZA VACCINE (#1) 2025 , 05/22/2023, 05/10/2023, Additional history exists DIABETES-SERUM CREATININE 05/14/20262024, 12/04/2023, 06/27/2023, Additional history exists ZOSTER VACCINE Completed 12/27/2017, 03/2018, 02/10/2009 PNEUMOCOCCAL VACCINE 50+ Completed 04/06/2020, 04/23 HEPATITIS B VACCINE Aged Out No longe [...] this topic Medical Devices Implanted Type Area Merchandise Clerk Device Identifier Shelf Expiration Date Model / Serial / Lot Port Implinfn Powerport Clrvu Argd Aviva Implanted:Qty: 1 on 05/11/2022 at [facility] Right: Chest Wall [employer] 06/20/2023 [id number] / / [id number] Procedures Procedure Name Priority Date/Time Associated Diagnosis Comments MS LARYNGOSCOPY,FLEX FIBER,DIAGNOSTIC Routine 05/14/2025 12:11 PM CDT Cancer of base of tongue (CMS/HCC) CT NECK SOFT TISSUE W CONT Routine 05/14/2025 11:09 AM CDT Cancer of base of tongue (CMS/HCC) CT CHEST W CONTRAST Routine 05/14/2025 1 1:07 AM CDT Cancer of base of tongue (CMS/HCC) ISTAT CREATININE Routine 05/14/2025 10:3 8 AM CDT HEMOGLOBIN A1C Routine 06/11/2022 11:38 PM MANAGER APPLICATION DEVELOPMENT from Last 3 Months or Most Recently Relevant to Health Maintenance Results * MS LARYNGOSCOPY,FLEX FIBER,DIAGNOSTIC (05/14/2025 12:11 PM CDT) Narrative Olga York MD - 05/14/2025 12:11 PM CDT Olga York MD 05/15/2025 7:58 AM Procedure Note Anesthesia: Lidocaine 2% and Kar-Synephrine 1/2% Endoscopy Type: Flexible Mbmpw-Sohftirgmfwxnn-Huaklbzngxdc Procedure Details: Informed consent was obtained. The patient was placed in the sitting position. After topical anesthesia and decongestion, the 4 mm laryngoscope was passed. The nasal cavities, nasopharynx, oropharynx, hypopharynx, and larynx were all examined. Vocal cords were examined during respiration and phonation. Findings: mild radiation changes to the base of tongue, no apparent lesions or masses at base of tongue. Stable appearance and size of the papilloma on the left aryepiglottic fold, < 1cm in estimated size. Disposition: The patient tolerated procedure well. Complications: None EBL: none Dr. Carrillo was present for the entire procedure. us Balbir Carrillo MD PROCEDURE/MINOR SURGICAL ORDERAB LES Final Result * CT Neck Soft Tissue W Cont (05/14/2025 11:09 AM CDT) Anatomical Region Laterality Modality Head Computed Tomogra phy 05/16/2025 9:45 AM CDT Impressions 05/16/2025 9:49 AM CDT IMPRESSION: 1.No evidence of visible residual or recurrent disease. No cervical lymphadenopathy. > Interpreting Provider: Yasmin Snowden MD on 05/16/2025 9:49 AM Narrative 05/16/2025 9:49 AM CDT PROCEDURE: CT NECK SOFT TISSUE W CONT, DATE/TIME OF EXAM: 05/14/2025 11:10 AM, LOCATION [facility] INDICATION: C01: Cancer of base of tongue (HCC) ADDITIONAL CLINICAL INFORMATION: Ordering Provider Reason For Exam: prior head and neck cancer. Follow up after chemo/RT Technologist Note: Additional: TECHNIQUE: CT of the neck was performed following the uneventful administration of intravenous contrast according to standard protocol. Contrast: IOPAMIDOL 76 % IV SOLN:50 mL COMPARISON: 12/04/2023. FINDINGS: The oral cavity is partially obscured [...] is cervical degenerative disc and joint disease. Postoperative changes of bilateral cataract surgery. The sinuses appear normal. The thyroid gland is normal. The visible lung apices are clear. Procedure Note Yasmin Snowden MD - 05/16/2025 PROCEDURE: CT NECK SOFT TISSUE W CONT, DATE/TIME OF EXAM: 05/14/2025 11:10 AM, LOCATION [facility] INDICATION: C01: Cancer of base of tongue (HCC) ADDITIONAL CLINICAL INFORMATION: Ordering Provider Reason For Exam: prior head and neck cancer. Followup after chemo/RT Technologist Note: Additional: TECHNIQUE: CT of the neck was performed following the uneventful administration of intravenous contrast according to standard protocol. Contrast: IOPAMIDOL 76 % IV SOLN:50 mL COMPARISON: 12/04/2023. FINDINGS: The oral cavity is partially obscured [...] is cervical degenerative disc and joint disease. Postoperative changes of bilateral cataract surgery. The sinuses appear normal. The thyroid gland is normal. The visible lung apices are clear. IMPRESSION: 1.No evidence of visible residual or recurrent disease. No cervical lymphadenopathy. > Interpreting Provider: Yasmin Snowden MD on 05/16/2025 9:49 AM us Gary Pugh MD CT ORDERABLES Final Re sult * CT Chest W Contrast (05/14/2025 11:07 AM CDT) Anatomical Region Laterality Modality Chest Computed Tomogra phy 05/14/2025 12:3 6 PM CDT Impressions 05/14/2025 12:41 PM CDT Impression: 1.No acute process identified in the chest. 2.No evidence of metastatic disease in the chest. > Interpreting Provider: Brooks Rodriguez MD on 05/14/2025 12:41 PM Narrative 05/14/2025 12:41 PM CDT PROCEDURE: CT CHEST W CONTRAST DATE/TIME OF EXAM: 05/14/2025 11:09 AM CLINICAL INFORMATION: None relevant/not provided if blank. Indication: C01: Cancer of base of tongue (HCC) Additional History: COMPARISON: 01/01/2025, CT CHEST WO CONTRAST TECHNIQUE: CT of the chest was performed following intravenous contrast utilizing standard protocol. CT dose reduction technique was used, including Automated Exposure Control. CONTRAST: IOPAMIDOL 76 % IV SOLN:75 mL FINDINGS: Lower Neck and Axillae: Normal. Lungs: Centrilobular [...] demonstrate no suspicious lytic or blastic lesions. Unchanged mild compression deformity of T9. Degenerative changes are seen in the spine. Upper Abdomen: Partially visualized cholelithiasis. Partially imaged duodenal diverticulum. Otherwise remaining visible portions of the upper abdominal organs are normal. Procedure Note Brooks Rodriguez MD - 05/14/2025 PROCEDURE: CT CHEST W CONTRAST DATE/TIME OF EXAM: 05/14/2025 11:09 AM CLINICAL INFORMATION: None relevant/not provided if blank. Indication: C01: Cancer of base of tongue (HCC) Additional History: COMPARISON: 01/01/2025, CT CHEST WO CONTRAST TECHNIQUE: CT of the chest was performed following intravenous contrast utilizing standard protocol. CT dose reduction technique was used, including Automated ExposureControl. CONTRAST: IOPAMIDOL 76 % IV SOLN:75 mL FINDINGS: Lower Neck and Axillae: Normal. Lungs: Centrilobular [...] windows demonstrate no suspicious lytic or blastic lesions.Unchanged mild compression deformity of T9. Degenerative changes are seen in the spine. Upper Abdomen: Partially visualized cholelithiasis. Partially imaged duodenal diverticulum. Otherwise remaining visible portions of the upperabdominal organs are normal. Impression: 1.No acute process identified in the chest. 2.No evidence of metastatic disease in the chest. > Interpreting Provider: Brooks Rodriguez MD on 05/14/2025 12:41 PM [address] Pugh MD CT ORDERABLES Final Re sult * (ABNORMAL) ISTAT CREATININE (05/14/2025 10:38 AM CDT) Creatinine POCT 0.90 0.60 - 1.30 mg/dL 05/14/2025 10:39 AM CDT [facility] eGFR by CKD-EPI 65(L) >90 mL/min/1.7 3 m2 05/14/2025 10:39 AM CDT [facility] Sample iSTAT LITA 05/14/2025 10:39 AM CDT [facility] Blood BLOOD SPECIMEN / Unknown 05/14/2025 10:38 AM CDT 05/14/2025 10:39 AM CDT Gary Pugh MD LAB - POINT OF CARE LOVE ADEN Final Result [facility] [address] [place] [address], [facility] [phone] * (ABNORMAL) HEMOGLOBIN A1C (06/11/2022 11:38 PM MANAGER APPLICATION DEVELOPMENT) Hemoglobin A1c 9.1(H) <=5.6 % 06/12/2022 7:58 AM MANAGER APPLICATION DEVELOPMENT [facility] Estimated Average Glucose 214 mg/dL 06/12/2022 7:58 AM MANAGER APPLICATION DEVELOPMENT [facility] Comment: HbA1c Interpretation: Normal : < 5.7% Pre-diabetes: 5.7-6.4% Diabetes: Equal to or greater than 6.5% Test results diagnostic of diabetes should be repeated for confirmation. Treatment target values recommended by ADA and other clinical organizations should be used to evaluate metabolic control in patients. Reference: [place] [employer], Standards of Care in Diabetes -2020 In patients 70 years and older consider HbA1c target range of 7.0-7.5% (Reference: Jose Bustillo et al. JAMDA. 2012) The Sebia assay for the measurement of HbA1c is a National Glycohemoglobin Standardization Program (NGSP) certified method. Blood BLOOD SPECIMEN / Unknown Venipuncture / Unknown 06/11/2022 11:38 PM MANAGER APPLICATION DEVELOPMENT 06/11/2022 11:54 PM MANAGER APPLICATION DEVELOPMENT us Josette Nathan MD LAB - CHEMISTRY ORDERABLES Final Result [facility] [address] [place] [address], [facility] [phone] from Last 3 Months or Most Recently Relevant to Health Maintenance Insurance MEDICARE [facility]LY [facility] MEDICARE FOR[facility]LY [facility] Advance Directives * Full Code (Latest Code Status on File) Date Activated Date Inactivated Comments 06/11/2022 9:58 PM 06/25/2022 7:54 PM Care Teams Predictive Maintenance Technician Relationship Specialty Start Date End Date Alec Zapata MD [address] [employer] [address] [address] [place] [address] PCP - General Family Medicine 12/30/24
--- OUTSIDE RECORDS SUMMARY | 2025-05-27 20:40 | XMS_ITS | Clinical Summary ---
Author Organization [facility] Address [address] [address] Phone Care Team Providers Care Shank Piece Tacker Name Role Phone Todd Gonzalez MD Primary [...] 1995 Zoster Immunization (1 of 2) 1995 Medicare Initial AWV [id number] 05/22/2011 Respiratory Syncytial Virus (RSV) Immunization (Adult) (1 - 1-dose 75+ series) 2020 Influenza Immunization (#1) 2025 SARS-COV-2 Immunization ( - 2024- season) 2025 Hepatitis B Immunization Aged Out [...] patient's age to complete this topic Insurance [facility] MEDICARE Care Teams Shank Piece Tacker Relationship Specialty Start Date End Date Todd Gonzalez MD [facility] [place] [address] PCP - General Strap Sewer 01/06/21
--- OUTSIDE RECORDS SUMMARY | 2025-05-27 20:40 | XMS_ITS | Patient Health Record ---
Author Organization [facility] Address [address] [place], [place] [address] Care Team Providers Care Senior Quality Technician Name Role Phone RAFFI MORA Unavailable [phone] Mariana Khan Unavailable Unavailable Allergies Allergen (clinical [...] ONCE DAILY Oral; Duration: 90 Days Active Immunizations Vaccine Route Administration Date Status Comme nts Influenza, high dose seasonal Unknown 05/10/2023 Admini stered Social History Social History Additional Details Category Social Info Options Details Migrated Social History Migrated Social History History of tobacco use : , Smoking Status : Former tobacco user Vital Signs Height-cm 154.94 cm 05/10/2025 Weight-kg 54.43 kg 05/10/2025 Height 61.00 in 05/10/2025 Weight 120 lbs 05/10/2025 BMI 22.67 kg/m2 05/10/2025 Encounters Encounter Location Date Provider Diagnosis [facility] [address] [place], [place] [id number] 05/10/2025 RAFFI MORA Tinea unguium B35.1 ; Pain in right toe(s) M79.674 ; Pain in left toe(s) M79.675 ; Atherosclerosis of [place] arteries of extremities with intermittent claudication, bilateral legs I70.213 and Type 2 diabetes mellitus with other circulatory complications E11.59 [facility] [address] M[address]RIG[address] [place] [id number] 08/10/2024 RAFFI SNOOK Tinea unguium B35.1 ; Pain in right toe(s) M79.674 ; Pain in left toe(s) M79.675 and Atherosclerosis of [place] arteries of extremities with intermittent claudication, bilateral legs I70.213 [facility] [address] [place] [id number] 11/09/2024 RAFFI SNOOK Tinea unguium B35.1 ; Pain in right toe(s) M79.674 ; Pain in left toe(s) M79.675 and Atherosclerosis of [place] arteries of extremities with intermittent claudication, bilateral legs I70.213 [facility] [address] [address] [place] [id number] 02/08/2025 RAFFI SNOOK Tinea unguium B35.1 ; Pain in right toe(s) M79.674 ; Pain in left toe(s) M79.675 ; Atherosclerosis of [place] arteries of extremities with intermittent claudication, bilateral [...] subungual debris and necrotic tissue removed 05/10/2025 Tinea unguium (ICD-10 - B35.1) NAIL DEBRIDEMENT: Nails 1-5 Bilateral were debrided extensively with nail nippers and emery board, reducing length and girth to pink healthy tissue with any subungual debris and necrotic tissue removed 02/08/2025 Pain in right toe(s) (ICD-10 - M79.674) 11/09/2024 Pain in left toe(s) (ICD-10 - M79.675) 08/10/2024 Pain in left toe(s) (ICD-10 - M79.675) 05/10/2025 Pain in right toe(s) (ICD-10 - M79.674) 05/10/2025 Pain in left toe(s) (ICD-10 - M79.675) 08/10/2024 Atherosclerosis of [place] arteries of extremities with intermittent claudication, bilateral legs (ICD-10 - I70.213) 11/09/2024 Atherosclerosis of [place] arteries of extremities with intermittent claudication, bilateral legs (ICD-10 - I70.213) 02/08/2025 Pain in left toe(s) (ICD-10 - M79.675) 02/08/2025 Atherosclerosis of [place] arteries of extremities with intermittent claudication, bilateral legs (ICD-10 - I70.213) 05/10/2025 Atherosclerosis of [place] arteries of extremities with intermittent claudication, bilateral [...] Treatment Next Appt Details Provider Name:RAFFI MORA, 11:10:00 AM, [address] [facility], [facility] [address], [place], [place], [id number], Insurance Providers Payer Name Payer Address Payer Phone Subscriber Number Group Number Insured Name Patient Relationship to Insured Coverage Start Date Coverage End Date Medicare Part B [place] [address] [place] [phone] [id number] IAM WAGNER Self - patient is the insured [facility] ([facility]) ATTN CLAIMS [address] [place] [address] [id number] IAM WAGNER Self - patient is the insured Medical (General) History Medical History History ICD Code Diabetic
--- OUTSIDE RECORDS SUMMARY | 2025-05-27 20:40 | XMS_ITS ---
Author Organization [facility] Address [address] [facility] [place] [address] Care Team Providers Care Distribution A Class Lineman Name Role Phone Alec Zapata MD Primary Care Provider [phone] Active Problems Problem Noted Date Diagnosed Date [...] Lifetime Dose Automatic Entry Manual Entr y CTDI(vol) 335.9 mGy 335.9 mGy 0 mGy Dose Length Product 2,555 mGy-cm 2,555 mGy-cm 0 mGy-cm Resolved Problems Problem Noted Date Diagnosed Date Resolved Date Sinusitis 07/02/2022 07/30/2022
== END 2025-05-27 14:52 | disposition home or self-care (01) ==
LOC: ANHFOHIMG 14:52
PROVIDERS: PCP Family Medicine; Visit Provider Physician Assistant
DX: M81.0 Age-related osteoporosis without current pathological fracture (principal); M85.89 Other specified disorders of bone density and structure, multiple sites; Z78.0 Asymptomatic menopausal state
CPT/HCPCS: 77080

== ENCOUNTER 2025-05-27 15:21 | Outpatient (CLI) | payer MEDICARE, BC, SELFPAY ==
--- OUTSIDE RECORDS SUMMARY | 2010-03-01 04:45 | XMS_ITS | Continuity of Care Document ---
Author Organization [facility] Address [address] [place] [address] Phone Care Team Providers Care Well Driller Helper Name Role Phone Javid Mendez Unavailable Unavailable Procedures Procedure Date Office/outpatient Visit, Est Eye Exam & Treatment Eye Exam & Treatment Eye Exam & Treatment Refraction Advance Directives Directive Yes / No Effective Date File Name No Information Encounters Encounter Description Practice Location Reason(s) For Visit Diagnoses Date Provider Providers Copied on Encounter Office/outpat ient Visit, Est [facility], [address], [place], [place], [address], [place] tel:[phone] [facility] No Information 1-201 0 Krishnasamy Javid. [address] [facility] [address], [place], [address], [place]. tel:[phone] [facility], [address], [place], [place], [address], [place] tel:[phone] [facility] No Information 0-200 9 Krishnasamy Javid. [address] [facility] [address], [place], [address], [place]. tel:[phone] [facility], [address], [place], [place], [address], [place] tel:[phone] [facility] No Information Sep-2 4200 8 Vanessa Hua. [address] [facility] [address], [place], [address], [place]. tel:[phone] [facility], [address], [place], [place], [address], [place] tel:[phone] [facility] No Information Mar- 7 Fahadanne Yanes. [address] [facility], [place], [place], [address], [place]. tel:[phone] Family History Family Member Type Diagnosis Age At Onset No Information Payers Payer name Insurance type Covered libertarian ID Tahir kernbrennen(s) [facility] [id number] Social History Type Description Quantity Date Captured Comments Sex Female Smoking Status No Information Chief Complaint And Reason For Visit No Information Reason For Referral Reason For Referral No Information History Of Present Illness Encounter Date Complaint History Of Prese nt Illness No Information Functional Status Date Functional Assessmen t No Information Instructions Date Instruction Additional Infor mation No Information Assessments Type Assessment Date No Information Patient Care Teams Name Effective Dates (start - stop) Status Members No Information
[2025-05-27 16:25] LABS: Free T4 Free Thyroxine 1.45 ng/dL (0.78-2.19)
[2025-05-27 16:45] LABS: Thyroid Stimulating Hormone 0.769 uIU/mL (0.465-4.680)
== END 2025-05-27 15:22 | disposition home or self-care (01) ==
LOC: ANHLAB 15:23
PROVIDERS: PCP Family Medicine; Visit Provider Student in an Organized Health Care Education/Training Program
DX: E03.9 Hypothyroidism, unspecified (principal)
CPT/HCPCS: 36415; 84439; 84443

== ENCOUNTER 2025-06-11 13:35 | Outpatient (CLI) | payer MEDICARE, BC, SELFPAY ==
--- OUTSIDE RECORDS SUMMARY | 2025-06-11 13:40 | XMS_ITS ---
Author Organization [facility] Address [address] [place] [address] Care Team Providers Care Cabinet Mounter Name Role Phone Alec Zapata MD Primary Care Provider [phone] Active Problems Problem Noted Date Diagnosed Date [...]
--- OUTSIDE RECORDS SUMMARY | 2025-06-11 13:40 | XMS_ITS | Clinical Summary ---
Author Organization [facility] Address [address] [address] Phone Care Team Providers Care Fire Medic Name Role Phone Todd Gonzalez MD Primary [...] Virus (HCV) Screening 1945 TdaP Immunization 1945 Varicella Immunization (1 of 2 - 13+ 2-dose series) 1958 Pneumococcal Immunization (5 0+ years) (1 of 1 - PCV) 1995 Zoster Immunization (1 of 2) 1995 Medicare Initial AWV [id number] 05/22/2011 Respiratory Syncytial Virus (RSV) Immunization (Adult) (1 - 1-dose 75+ series) 2020 Influenza Immunization (#1) 2025 SARS-COV-2 Immunization ( season) 2025 Hepatitis B Immunization Aged Out [...] patient's age to complete this topic Insurance [facility] MEDICARE Care Teams Fire Medic Relationship Specialty Start Date End Date Todd Gonzalez MD [facility] [place] [address] PCP - General Clip On Sunglasses Assembler 01/06/21
--- OUTSIDE RECORDS SUMMARY | 2025-06-11 13:40 | XMS_ITS | Clinical Summary ---
Author Organization [facility] Address [address] [place] [address] Care Team Providers Care Sex Offender Treatment Professional Name Role Phone Alec Zapata MD Primary Care Provider [phone] Source Comments [facility],non-owned Affiliates and Associated Physician Practices is amultiple site organization consisting of ambulatory clinics and hospital sitesin [place], [place], [place] and [place]. This disclosure is being madepursuant to the Care Everywhere program and may not contain all information available regarding this patient. Last updated 18.[facility] Allergies Active Allergy Reactions Criticality Noted Date [...] as needed Active SALINE NASAL SPRAY NA [place] 1 spray into the nose as needed [...] Type Department Care Team Description 05/18/2025 Telephone [facility] [address] [place] [address] Lorin Pena, superintendent of generation 05/17/2025 10:54 AM CDT - 05/17/2025 11:59 PM CDT Hospital Encounter [facility] [address] [place] [address] Major Shearer MD Discharge Disposition: Home or Self Care 05/14/2025 11:30 AM CDT Office Visit [facility] - ENT [address] [place] [address] Gary Pugh MD Massa, Sean T, MD 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) 05/14/2025 10:18 AM CDT - 05/14/2025 11:59 PM CDT Hospital Encounter [facility] [address] [place] [address] Gary Pugh MD Discharge Disposition: Home or Self Care 05/14/2025 10:18 AM CDT - 05/14/2025 11:59 PM CDT Hospital Encounter [facility] [address] [place] [address] Gary Pugh MD Discharge Disposition: Home or Self Care 05/14/2025 Travel 04/30/2025 Telephone [facility] [address] [place] [address] Lorin Pena, PURVI Appointment 04/06/2025 Telephone [facility] [address] [place] [address] Lorin Pena, PURVI Appointment 03/31/2025 Telephone [facility] - Hematology/Oncology [address] [place] [phone] Claire Stewart MD Appointment (See notes) 03/30/2025 Telephone [facility] - Hematology/Oncology [address] [place] [address] Claire Stewart MD Appointment (See [...] st Contact Info) Description 08/05/2025 8:40 AM SENIOR MAINFRAME PROGRAMMER ANALYST Office Visit [facility] - Hematology/Oncology [address] [place] [address] Claire Stewart MD [address] [place] [address] 11/12/2025 1:45 PM CDT Office Visit [facility] - ENT [address] [facility], [place] [phone] Balbir Carrillo MD [address] [facility] [address] [place] [address] Health Maintenance Due Date Last Done Comments [...] - URINE PROTEIN SCREENING 07/22/2024 COVID-19 VACCINE (2024- season) 2025 04/23/2024, 04/19/2023, 08/01/2022, Additional history [...] this topic Medical Devices Implanted Type Area Sole Rounding Machine Operator Device Identifier Shelf Expiration Date Model / Serial / Lot Port Implinfn Powerport Clrvu Argd Aviva Implanted:Qty: 1 on 05/11/2022 at [facility] Right: Chest Wall [employer] 06/20/2023 [id number] / / [id number] Procedures Procedure Name Priority Date/Time Associated Diagnosis Comments [place] LARYNGOSCOPY,FLEX FIBER,DIAGNOSTIC Routine 05/14/2025 12:11 PM CDT Cancer of base of tongue (CMS/HCC) CT NECK SOFT TISSUE W CONT Routine 05/14/2025 11:09 AM CDT Cancer of base of tongue (CMS/HCC) CT CHEST W CONTRAST Routine 05/14/2025 1 1:07 AM CDT Cancer of base of tongue (CMS/HCC) ISTAT CREATININE Routine 05/14/2025 10:3 8 AM CDT HEMOGLOBIN A1C Routine 06/11/2022 11:38 PM SENIOR MAINFRAME PROGRAMMER ANALYST from Last 3 Months or Most Recently Relevant to Health Maintenance Results * MN LARYNGOSCOPY,FLEX FIBER,DIAGNOSTIC (05/14/2025 12:11 PM CDT) Narrative Olga York MD - 05/14/2025 12:11 PM CDT Olga York MD 05/15/2025 7:58 AM Procedure Note Anesthesia: Lidocaine 2% and Kar-Synephrine 1/2% Endoscopy Type: Flexible Wunqu-Lfymedozpnqput-Zvxmusptznut Procedure Details: Informed consent was obtained. The [...] DATE/TIME OF EXAM: 05/14/2025 11:10 AM, LOCATION [facility] INDICATION: C01: Cancer of base [...] DATE/TIME OF EXAM: 05/14/2025 11:10 AM, LOCATION [facility] INDICATION: C01: Cancer of base [...] - 1.30 mg/dL 05/14/2025 10:39 AM CDT [facility] eGFR by CKD-EPI 65(L) >90 mL/min/1.7 3 m2 05/14/2025 10:39 AM CDT [facility] Sample iSTAT LITA 05/14/2025 10:39 AM CDT [facility] Blood BLOOD SPECIMEN / Unknown 05/14/2025 10:38 AM CDT 05/14/2025 10:39 AM CDT Gary Pugh MD LAB - POINT OF CARE LOVE ADEN Final Result [facility] [address] [place] [address], [facility] [phone] * (ABNORMAL) HEMOGLOBIN A1C (06/11/2022 11:38 PM SENIOR MAINFRAME PROGRAMMER ANALYST) Hemoglobin A1c 9.1(H) <=5.6 % 06/12/2022 7:58 AM SENIOR MAINFRAME PROGRAMMER ANALYST [facility] Estimated Average Glucose 214 mg/dL 06/12/2022 7:58 AM SENIOR MAINFRAME PROGRAMMER ANALYST [facility] Comment: HbA1c Interpretation: Normal : < 5.7% Pre-diabetes: 5.7-6.4% Diabetes: Equal to or greater than 6.5% Test results diagnostic of diabetes should be repeated for confirmation. Treatment target values recommended by ADA and other clinical organizations should be used to evaluate metabolic control in patients. Reference: [place] Diabetes Association, Standards of Care in Diabetes -2020 In patients 70 years and older consider HbA1c target range of 7.0-7.5% (Reference: Jose Bustillo et al. JAMDA. 2012) The Sebia assay for the measurement of HbA1c is a National Glycohemoglobin Standardization Program (NGSP) certified method. Blood BLOOD SPECIMEN / Unknown Venipuncture / Unknown 06/11/2022 11:38 PM SENIOR MAINFRAME PROGRAMMER ANALYST 06/11/2022 11:54 PM SENIOR MAINFRAME PROGRAMMER ANALYST us Josette Nathan MD LAB - CHEMISTRY ORDERABLES Final Result [facility] [address] [place] [address], [facility] [phone] from Last 3 Months or Most Recently Relevant to Health Maintenance Insurance MEDICARE REPLACED BY [facility] MEDICARE REPLACED BY [facility] Advance Directives * Full Code (Latest Code Status on File) Date Activated Date Inactivated Comments 06/11/2022 9:58 PM 06/25/2022 7:54 PM Care Teams Sex Offender Treatment Professional Relationship Specialty Start Date End Date Alec Zapata MD [address] [employer] [place] [address] PCP - General Family Medicine 12/30/24
[2025-06-11 14:14] LABS: Hemoglobin A1C 6.8 % (<5.7)
[2025-06-11 14:17] LABS: Iron 64 ug/dL (37-170)
[2025-06-11 14:27] LABS: Percent Iron Saturation 24 % (20-50)
[2025-06-11 15:05] LABS: Vitamin B12 909.0 pg/mL (239-931)
== END 2025-06-11 13:36 | disposition home or self-care (01) ==
LOC: ANHLAB 13:37
PROVIDERS: PCP Family Medicine; Visit Provider Physician Assistant
DX: D64.9 Anemia, unspecified (principal); E53.8 Deficiency of other specified B group vitamins; E55.9 Vitamin D deficiency, unspecified; M81.0 Age-related osteoporosis without current pathological fracture; E11.9 Type 2 diabetes mellitus without complications; Z79.4 Long term (current) use of insulin
CPT/HCPCS: 36415; 82306; 82607; 83036; 83540; 83550